=== PATIENT | male | born 1970 | race Caucasian/White ===

== ENCOUNTER 2016-12-25 01:29 | Emergency (ER) | payer BC, OTHER ==
[~2016-12-25] VITALS: Ht 177.8 cm; Wt 145.2 kg
[~2016-12-25 01:29] MED LIST: DLN100 PO
[2016-12-25 01:35] VITALS: TEMP 36.8; O2SAT 91; Ht 177.8 cm; Wt 145.2 kg
[2016-12-25 02:01] LABS: BASO % 0.5 %; BASO ABS # 0.03 K/uL (0-0.2); COMPLETE YES; HEMATOCRIT 44.1 % (42-52); IG% 0.6 %; LYMPH % 15.7 %; LYMPH ABS # 1.04 K/uL (1.2-3.4); MEAN CELL VOLUME 91.5 fL (80-100); MEAN CORPUSCULAR HEMOGLOBIN 30.9 pg (25-34); MEAN CORPUSCULAR HGB CONC 33.8 g/dl (32-36); MEAN PLATELET VOLUME 9.5 fL (7.4-10.4); MONO % 6.8 %; NEUT % 73.4 %; PLATELET COUNT 214 K/uL (130-400); RED BLOOD COUNT 4.82 M/uL (4.7-6.1); WHITE BLOOD COUNT 6.62 K/uL (4.8-10.8)
[2016-12-25 02:11] LABS: PROTHROMBIN TIME (PATIENT) 10.3 SECONDS (9.0-12.0)
[2016-12-25 02:19] LABS: BUN/CREATININE RATIO 13.6 (10-20); CALCIUM 7.9 mg/dl (8.5-10.1); CREATININE 0.72 mg/dl (0.60-1.40); POTASSIUM 4.1 mmol/L (3.5-5.1)
[2016-12-25 02:28] LABS: PHOSPHORUS 2.9 mg/dl (2.5-4.9); THYROID STIMULATING HORMONE 1.77 uIu/ml (0.300-4.500)
[2016-12-25 02:53] LABS: URINE APPEARANCE CLEAR (CLEAR); URINE BILIRUBIN NEG (NEG); URINE COLOR YELLOW; URINE NITRITE NEG (NEG); URINE PH 5.5 (4.5-7.5); URINE SPECIFIC GRAVITY 1.011 (1.000-1.030); UROBILINOGEN NEG (NEG)
[2016-12-25 02:54] LABS: MANUAL MICROSCOPIC REQUIRED? NO; REVIEW REQ? NO
[2016-12-25] MEDS ORDERED: PHENYTOIN SODIUM ER 100 MG CAP PO STA (03:13)
[2016-12-25] MEDS ORDERED: DLN100 PO (03:15)
[2016-12-25 03:55] VITALS: BP 134/84; PULSE 88; O2SAT 96
--- NOTE | 2016-12-25 04:13 | EMERGENCY ROOM VISIT NOTE ---
History First contact with patient: 01:33 Chief Complaint: SEIZURE Stated Complaint: SEIZURE Nursing Triage Summary: 2-3 min seizure while sleeping- girlfriend present & called EMS. History of seizures-last one was 5months ago. Dr. Metzger is neurologist. Patient takes Dilantin as prescribed. History of Present Illness The patient is a 46 year old male who presents to the Emergency Room with complaints of seizure tonight that lasted about 3 minutes that was witnessed by the girlfriend. Patient has a history of seizure disorder. He follows with Dr. Metzger. He takes Dilantin 300 2 AM and 400 daily at bedtime. He has not missed any doses per patient. Patient states he was confused after the seizure. He does not recall the events. Patient denies chest pain, dyspnea, fever, chills, illness, cold symptoms, abdominal pain, headache, numbness, tingling or any other medical complaints. He states he does not currently drive. He works at [email or web address]. Last seizure was 6 months ago. Review of Systems See HPI for pertinent positives & negatives. A total of 10 systems reviewed and were otherwise negative. Past Medical/Surgical History Medical Problems: (1) Chest pain (2) Seizure disorder (3) Tobacco abuse Surgical Problems: (1) History of ear surgery Family History Diabetes mellitus FATHER MOTHER SISTER Hypertension MOTHER Social History Smoking Status: Current Every Day Smoker Marital Status: Housing Status: lives with significant other Occupation Status: employed Current/Historical Medications Scheduled Phenytoin Sodium (Dilantin), 300 MG PO QAM Phenytoin Sodium (Dilantin), 400 MG PO QPM Phenytoin Sodium (Dilantin), 4 CAP PO BID Allergies Coded Allergies: No Known Allergies (Verified , 04/23/16) Physical Exam Vital Signs Date Time Temp Pulse Resp B/P Pulse Ox O2 Delivery O2 Flow Rate FiO2 12/25/16 03:12 67 17 124/73 95 Room Air 12/25/16 02:05 85 12/25/16 01:35 91 Room Air 12/25/16 01:35 36.8 88 16 153/79 93 Room Air 12/25/16 01:30 83 17 153/79 93 Room Air Physical Exam VITALS: Vitals are noted on the nurse's note and reviewed by myself. Vital signs stable. GENERAL: Pleasant male answering questions appropriately, in no acute distress, nondiaphoretic, well-developed well-nourished. SKIN: The skin was without rashes, erythema, edema, or bruising. There is no tenting of the skin. Capillary reflex less than 2 seconds. HEAD: Normocephalic atraumatic. EARS: External auditory canals clear, tympanic membranes pearly duke without erythema or effusion bilaterally. EYES: Pupils equal round and reactive to light and accommodation. Conjunctivae without injection, sclerae without icterus. Extraocular movements intact. NOSE: Patent, turbinates without inflammation or discharge. No sinus tenderness. MOUTH: Mucous membranes moist. Pharynx without erythema or exudate. Uvula midline. Airway patent. Tongue does not deviate. NECK: Supple without nuchal rigidity. No lymphadenopathy. No thyromegaly. Cervical spine is nontender. No JVD. HEART: Regular rate and rhythm without murmurs gallops or rubs. LUNGS: Clear to auscultation bilaterally without wheezes, rales or rhonchi. No dullness to percussion. No retractions or accessory muscle use. ABDOMEN: Positive bowel sounds x 4. Normal tympanic percussion. Soft, nontender, without masses or organomegaly. Gamino sign negative. No guarding or rebound tenderness. MUSCULOSKELETAL: No muscle atrophy, erythema, or edema noted. NEURO: Patient was alert and oriented to person place and time. Normal sensation to light and sharp touch. No focal neurological deficits. Cranial nerves II-12 grossly intact. No pronator drift. Cell exam intact. Medical Decision & Procedures Laboratory Results 12/25/16 01:55 Red Blood Count 4.82, Mean Corpuscular Volume 91.5, Mean Corpuscular Hemoglobin 30.9, Mean Corpuscular Hemoglobin Concent 33.8, Mean Platelet Volume 9.5, Neutrophils (%) (Auto) 73.4, Lymphocytes (%) (Auto) 15.7, Monocytes (%) (Auto) 6.8, Eosinophils (%) (Auto) 3.0, Basophils (%) (Auto) 0.5, Neutrophils # (Auto) 4.86, Lymphocytes # (Auto) 1.04, Monocytes # (Auto) 0.45, Eosinophils # (Auto) 0.20, Basophils # (Auto) 0.03 12/25/16 01:55 Test 12/25/16 01:55 12/25/16 02:38 White Blood Count 6.62 K/uL (4.8-10.8) Red Blood Count 4.82 M/uL (4.7-6.1) Hemoglobin 14.9 g/dL (14.0-18.0) Hematocrit 44.1 % (42-52) Mean Corpuscular Volume 91.5 fL (80-100) Mean Corpuscular Hemoglobin 30.9 pg (25-34) Mean Corpuscular Hemoglobin Concent 33.8 g/dl (32-36) Platelet Count 214 K/uL (130-400) Mean Platelet Volume 9.5 fL (7.4-10.4) Neutrophils (%) (Auto) 73.4 % Lymphocytes (%) (Auto) 15.7 % Monocytes (%) (Auto) 6.8 % Eosinophils (%) (Auto) 3.0 % Basophils (%) (Auto) 0.5 % Neutrophils # (Auto) 4.86 K/uL (1.4-6.5) Lymphocytes # (Auto) 1.04 K/uL (1.2-3.4) Monocytes # (Auto) 0.45 K/uL (0.11-0.59) Eosinophils # (Auto) 0.20 K/uL (0-0.5) Basophils # (Auto) 0.03 K/uL (0-0.2) RDW Standard Deviation 47.4 fL (36.4-46.3) RDW Coefficient of Variation 14.1 % (11.5-14.5) Immature Granulocyte % (Auto) 0.6 % Immature Granulocyte # (Auto) 0.04 K/uL (0.00-0.02) Prothrombin Time 10.3 SECONDS (9.0-12.0) Prothromb Time International Ratio 1.0 (0.9-1.1) Activated Partial Thromboplast Time 27.0 SECONDS (21.0-31.0) Partial Thromboplastin Ratio 1.0 Anion Gap 7.0 mmol/L (3-11) Est Creatinine Clear Calc Drug Dose 186.7 ml/min Estimated GFR () 130.6 Estimated GFR (Non- 112.7 BUN/Creatinine Ratio 13.6 (10-20) Calcium Level 7.9 mg/dl (8.5-10.1) Phosphorus Level 2.9 mg/dl (2.5-4.9) Magnesium Level 2.0 mg/dl (1.8-2.4) Thyroid Stimulating Hormone (TSH) 1.770 uIu/ml (0.300-4.500) Phenytoin (Dilantin) Level 1.8 mcg/mL (10-20) Urine Color YELLOW Urine Appearance CLEAR (CLEAR) Urine pH 5.5 (4.5-7.5) Urine Specific Bradley 1.011 (1.000-1.030) Urine Protein NEG (NEG) Urine Glucose (UA) NEG (NEG) Urine Ketones NEG (NEG) Urine Occult Blood NEG (NEG) Urine Nitrite NEG (NEG) Urine Bilirubin NEG (NEG) Urine Urobilinogen NEG (NEG) Urine Leukocyte Esterase NEG (NEG) Medications Administered Medications (Trade) Dose Ordered Sig/Diana Route Start Time Stop Time Status Last Admin Dose Admin Phenytoin Sodium (Dilantin Er Cap) 100 mg NOW STAT PO 12/25/16 03:13 12/25/16 03:14 DC 12/25/16 03:18 100 MG ED Course Prior records/ancillary studies reviewed. Patient placed in seizure precautions immediately upon arrival. Nursing notes reviewed. Additional history obtained from family The patient's history was concerning for a possible seizure. Differential diagnosis: Etiologies such as infection, hypoglycemia, electrolyte abnormalities, cardiac sources, intracerebral event, trauma, toxicologic, neurologic, as well as others were entertained. Physical examination: As above. No signs of trauma. ER treatment provided: Dilantin On reassessment the patient felt better. Diagnostics interpretation by me: ECG: Normal sinus, normal intervals, no acute ST-T wave changes. Impression normal sinus rhythm interpreted by myself The labs revealed subtherapeutic Dilantin level Consultation: A consultation was placed with the neurologist, Dr. Dobbins. The case was discussed and diagnostics were reviewed. She recommends increasing the Dilantin to 400 mg twice a day and following up with Dr. eMtzger this week. The patient has a history of seizures and experienced another episode. No concerning physical findings or historical points were noted. Advanced diagnostics were deemed unnecessary. By the evaluation outlined above emergent etiologies such as infection, hypoglycemia, electrolyte abnormalities, cardiac sources, intracerebral event, toxicologic, neurologic,as well as others were deemed relatively unlikely. Patient is advised not to drive and states he does not drive. He was advised follow-up with his neurologist this week or here in the ER sooner for seizure, fevers, chest pain, worsening signs or symptoms or as needed. Patient was neurovascularly and neurologically intact. He is well- appearing. The patient was counseled not to drive until cleared in follow-up and seizure precautions given. I gave my usual and customary discussion regarding these issues. The pt informed about the findings as listed above. All questions were answered and pleased with the treatment. Return instructions were outlined and the patient was discharged in stable condition. Outpatient prescription management: Dilantin Referral: The patient was referred back to their neurology for follow-up in 2 to 3 days for a recheck of the current condition. Medical Decision As above Impression Primary Impression: Seizure Departure Information Dispostion Home / Self-Care Condition GOOD Prescriptions Phenytoin Sodium (Dilantin) 100 Mg Cap 4 CAP PO BID for 30 Days, #240 CAP 0 Refills Prov: Anna Wiggins .LUCIEN 12/25/16 Forms HOME CARE DOCUMENTATION FORM, IMPORTANT VISIT INFORMATION Patient Instructions Seizures - [facility], My [facility] Additional Instructions Increase your Dilantin to 400 mg twice a day. Do not drive until cleared by your neurologist. Follow-up with your neurologist in 2-3 days, call for an appointment. Return to ER sooner for seizures, chest pain, fever, worsening signs or symptoms or as needed.
== END 2016-12-25 03:55 | disposition home or self-care (01) ==
LOC: EDBD 01:29 → C.EDB 01:31
DX: G40.909 Epilepsy, unspecified, not intractable, without status epilepticus (principal); Z98.890 Other specified postprocedural states; F17.200 Nicotine dependence, unspecified, uncomplicated; Z83.3 Family history of diabetes mellitus; Z82.49 Family history of ischemic heart disease and other diseases of the circulatory system

== ENCOUNTER 2017-05-19 00:12 | Emergency (ER) | payer BC ==
[~2017-05-19] VITALS: Ht 177.8 cm; Wt 148.0 kg
[2017-05-19 00:23] VITALS: TEMP 36.9; Ht 177.8 cm; Wt 148.0 kg
[2017-05-19] MEDS ORDERED: SODIUM CHLORIDE 0.9% 1000ML 1,000 ML IV STA (00:49)
[2017-05-19 01:33] LABS: BASO % 0.4 %; BASO ABS # 0.04 K/uL (0-0.2); COMPLETE YES; EOS % 1.9 %; HEMATOCRIT 45.6 % (42-52); IG% 0.3 %; LYMPH % 13.6 %; LYMPH ABS # 1.32 K/uL (1.2-3.4); MEAN CELL VOLUME 93.3 fL (80-100); MEAN CORPUSCULAR HEMOGLOBIN 30.3 pg (25-34); MEAN CORPUSCULAR HGB CONC 32.5 g/dl (32-36); MEAN PLATELET VOLUME 9.5 fL (7.4-10.4); MONO % 7.5 %; NEUT % 76.3 %; PLATELET COUNT 230 K/uL (130-400); RED BLOOD COUNT 4.89 M/uL (4.7-6.1); WHITE BLOOD COUNT 9.68 K/uL (4.8-10.8)
[2017-05-19 02:03] LABS: ALT/SGPT 26 U/L (12-78); AST/SGOT 22 U/L (15-37); BLOOD UREA NITROGEN 18 mg/dl (7-18); BUN/CREATININE RATIO 19.3 (10-20); CALCIUM 8.4 mg/dl (8.5-10.1); CARBON DIOXIDE 29 mmol/L (21-32); CHLORIDE 108 mmol/L (98-107); CREATININE 0.93 mg/dl (0.60-1.40); GLUCOSE 124 mg/dl (70-99); MAGNESIUM 2.1 mg/dl (1.8-2.4); POTASSIUM 4.2 mmol/L (3.5-5.1); SODIUM 140 mmol/L (136-145)
[2017-05-19 02:05] LABS: ALKALINE PHOSPHATASE 173 U/L (45-117)
[2017-05-19 02:13] LABS: ACETAMINOPHEN < 2 ug/ml (10-30)
[2017-05-19] MEDS ORDERED: PHENYTOIN SODIUM ER 100 MG CAP PO STA (03:21)
[2017-05-19] MEDS ORDERED: PHENYTOIN 50 MG CHEW PO STA ×2 (03:29→03:38)
--- NOTE | 2017-05-19 03:38 | EMERGENCY ROOM VISIT NOTE ---
History Report prepared by Linh: Sheron Estevez Under the Supervision of: Dr. Patsy Correa M.D. First contact with patient: 00:25 Chief Complaint: SEIZURE Stated Complaint: SEIZURE Nursing Triage Summary: hx of seizures. went to bed lidia ya' found patient in bed having seizure, lasted approx 2 min. patient is alert and oriented x 4 upon arrival. only complaint is pressure behind his eyes History of Present Illness The patient is a 46 year old male who presents to the Emergency Room with complaints of an episode of seizure around 2300 today. The patient has a 10 year history of seizures for which he is on Dilantin. It has been 1 year since his last seizure. The patient recalls going to bed around 2200 today. The next thing he remembers is being wheeled out of the house by EMS. The seizure was witness by his partner. She saw him in bed shaking and punching the wall. He was foaming at the mouth. The episode lasted for a few minutes. The patient has a postictal phase for 10-15 minutes when he was unresponsive. His daughter states that the description of the seizure is consistent with his prior seizures. He currently feels like he did after his prior seizures. He did have a pressure in his head after he woke up which has resolved. He denies any vomiting, loss of bowel or bladder control. He denies any vision changes or stroke symptoms recently. He notes that he took metronidazole today for the first time for a potential STD. He took the Dilantin 1 hour before he took the metronidazole. He denies any recent head injury or falls. 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 He has had no other medical issues or surgeries. He has smoked 1 ppd since the age of 13. Source of History: patient, family Onset: 2299 today Position: other (global) Quality: other (seizure) Timing: other (episodic) Associated Symptoms: No headache, No vomiting Note: Pt denies loss of bowel or bladder control, vision changes, stroke symptoms. Review of Systems See HPI for pertinent positives & negatives. A total of 10 systems reviewed and were otherwise negative. Past Medical & Surgical Medical Problems: (1) Chest pain (2) Seizure disorder (3) Tobacco abuse Surgical Problems: (1) History of ear surgery Family History Diabetes mellitus FATHER MOTHER SISTER Hypertension MOTHER Social History Smoking Status: Current Every Day Smoker Marital Status: Housing Status: lives with significant other Occupation Status: employed Current/Historical Medications Scheduled Phenytoin (Dilantin Chewable), 400 MG PO Q2H Phenytoin Sodium (Dilantin), 300 MG PO QAM Phenytoin Sodium (Dilantin), 400 MG PO QPM Allergies Coded Allergies: No Known Allergies (Verified , 05/19/17) Physical Exam Vital Signs Date Time Temp Pulse Resp B/P (MAP) Pulse Ox O2 Delivery O2 Flow Rate FiO2 05/19/17 03:52 71 18 124/81 98 05/19/17 02:12 74 17 96 Room Air 05/19/17 01:42 84 20 93 Room Air 05/19/17 01:12 80 22 92 Room Air 05/19/17 00:25 93 05/19/17 00:23 36.9 97 18 110/73 94 Room Air 05/19/17 00:15 110/73 Physical Exam Vital signs reviewed. General: Well-appearing male, in no significant distress. HEENT: No scleral icterus, PERRLA, neck supple. Atraumatic. No meningeal signs. Cardiovascular: Regular rate and rhythm, no extra sounds. Pulmonary: Clear to auscultation bilaterally, normal work of breathing. Abdomen: Morbidly obese. Soft, nontender, nondistended, positive bowel sounds. Musculoskeletal: Atraumatic, no peripheral edema. Neurologic: Patient awake alert and oriented x 3, full strength in all 4 extremities. Cranial nerves 2 through 12 grossly intact. Skin: Warm, dry, no rash Medical Decision & Procedures Laboratory Results 05/19/17 01:21 Red Blood Count 4.89, Mean Corpuscular Volume 93.3, Mean Corpuscular Hemoglobin 30.3, Mean Corpuscular Hemoglobin Concent 32.5, Mean Platelet Volume 9.5, Neutrophils (%) (Auto) 76.3, Lymphocytes (%) (Auto) 13.6, Monocytes (%) (Auto) 7.5, Eosinophils (%) (Auto) 1.9, Basophils (%) (Auto) 0.4, Neutrophils # (Auto) 7.38, Lymphocytes # (Auto) 1.32, Monocytes # (Auto) 0.73, Eosinophils # (Auto) 0.18, Basophils # (Auto) 0.04 05/19/17 01:21 Test 05/19/17 01:21 White Blood Count 9.68 K/uL (4.8-10.8) Red Blood Count 4.89 M/uL (4.7-6.1) Hemoglobin 14.8 g/dL (14.0-18.0) Hematocrit 45.6 % (42-52) Mean Corpuscular Volume 93.3 fL (80-100) Mean Corpuscular Hemoglobin 30.3 pg (25-34) Mean Corpuscular Hemoglobin Concent 32.5 g/dl (32-36) Platelet Count 230 K/uL (130-400) Mean Platelet Volume 9.5 fL (7.4-10.4) Neutrophils (%) (Auto) 76.3 % Lymphocytes (%) (Auto) 13.6 % Monocytes (%) (Auto) 7.5 % Eosinophils (%) (Auto) 1.9 % Basophils (%) (Auto) 0.4 % Neutrophils # (Auto) 7.38 K/uL (1.4-6.5) Lymphocytes # (Auto) 1.32 K/uL (1.2-3.4) Monocytes # (Auto) 0.73 K/uL (0.11-0.59) Eosinophils # (Auto) 0.18 K/uL (0-0.5) Basophils # (Auto) 0.04 K/uL (0-0.2) RDW Standard Deviation 49.2 fL (36.4-46.3) RDW Coefficient of Variation 14.4 % (11.5-14.5) Immature Granulocyte % (Auto) 0.3 % Immature Granulocyte # (Auto) 0.03 K/uL (0.00-0.02) Anion Gap 3.0 mmol/L (3-11) Est Creatinine Clear Calc Drug Dose 146.1 ml/min Estimated GFR () 114.5 Estimated GFR (Non- 98.8 BUN/Creatinine Ratio 19.3 (10-20) Calcium Level 8.4 mg/dl (8.5-10.1) Magnesium Level 2.1 mg/dl (1.8-2.4) Total Bilirubin 0.2 mg/dl (0.2-1) Direct Bilirubin < 0.1 mg/dl (0-0.2) Aspartate Amino Transf (AST/SGOT) 22 U/L (15-37) Alanine Aminotransferase (ALT/SGPT) 26 U/L (12-78) Alkaline Phosphatase 173 U/L (45-117) Total Protein 6.7 gm/dl (6.4-8.2) Albumin 3.1 gm/dl (3.4-5.0) Salicylates Level 2.2 mg/dl (2.8-20) Acetaminophen Level < 2 ug/ml (10-30) Phenytoin (Dilantin) Level 2.7 mcg/mL (10-20) Ethyl Alcohol mg/dL < 3.0 mg/dl (0-3) Laboratory results per my review. Medications Administered Medications (Trade) Dose Ordered Sig/Diana Route Start Time Stop Time Status Last Admin Dose Admin Sodium Chloride 1,000 ml @ 999 mls/hr Q1H1M STAT IV 05/19/17 00:49 05/19/17 01:49 DC 05/19/17 00:49 999 MLS/HR Phenytoin (Dilantin Chew) 400 mg NOW STAT PO 05/19/17 03:29 05/19/17 03:30 DC 05/19/17 03:29 400 MG Phenytoin (Dilantin Chew) 800 mg Q2HWA STAT PO 05/19/17 03:38 05/19/17 03:41 DC 05/19/17 03:38 800 MG ECG Indication: syncope Rate (beats per minute): 92 Rhythm: normal sinus Findings: no acute ischemic change, no ectopy ED Course 0025: The patient was evaluated by the student at this time. We discussed findings, differentials, and treatment plan. 0049: NSS 1000 ml @ 999 mls/hr IV. 0100: Past medical records reviewed. The patient was evaluated in room B2. A complete history and physical examination was performed. 0315: Upon reevaluation, the patient appeared to have improvement of his symptoms. I discussed findings with him. He verbalized agreement of the treatment plan. He was discharged home. 0329: Dilantin Chew 400 mg PO. Medical Decision Differential diagnosis: Etiologies such as infection, hypoglycemia, electrolyte abnormalities, cardiac sources, intracerebral event, trauma, toxicologic, neurologic, as well as others were entertained. This patient was evaluated and appears to be in no significant distress. IV access was obtained and laboratory work was drawn. Patient was placed on the classroom monitor with seizure precautions maintained. IV hydration was initiated. Patient's Dilantin level is noted to be subtherapeutic. He admits to patchy compliance with his medications. The patient was given an oral load of Dilantin. He will be required to take 400 mg every 2 hours until 4 PM. Patient was given 8-50 mg tablets with instructions as well as a prescription for the remaining immediate release chewable tablets. Patient will then continue his Dilantin as prescribed and follow-up with his neurologist. Patient was discharged with care of his girlfriend. He will return to the ER for worsening of symptoms or any medical concerns. Medication Reconcilliation Current Medication List: was personally reviewed by me Blood Pressure Screening Patient's blood pressure: Normal blood pressure Blood pressure disposition: Did not require urgent referral Impression Primary Impression: Seizure disorder Scribe Attestation The scribe's documentation has been prepared under my direction and personally reviewed by me in its entirety. I confirm that the note above accurately reflects all work, treatment, procedures, and medical decision making performed by me. Departure Information Dispostion Home / Self-Care Prescriptions Phenytoin (DILANTIN CHEWABLE) 50 Mg Chw 400 MG PO Q2H, #32 CHW take 400 mg at 10 am, 12 pm, 2 pm and 4 pm Prov: Patsy Correa M.D. 05/19/17 Referrals Lauren Metzger M.D. (PCP) Tom Paez III, M.D. Forms HOME CARE DOCUMENTATION FORM, IMPORTANT VISIT INFORMATION Patient Instructions My [facility] Additional Instructions Diagnosis: Seizure disorder Dilantin 400 mg every 2 hours x 6 more doses (6 am, 8am, 10 am, 12pm, 2 pm, 4 pm ) and then take your Dilantin as prescribed. Drink plenty of clear fluids. Follow up with your neurologist this week for reevaluation. Return to the ED for worsening of symptoms or any medical concerns.
[2017-05-19] MEDS ORDERED: PHEN50CH PO (03:43)
[2017-05-19 03:52] VITALS: BP 124/81; PULSE 71; O2SAT 98
== END 2017-05-19 03:53 | disposition home or self-care (01) ==
LOC: EDBD 00:12 → C.EDB 00:14
DX: G40.909 Epilepsy, unspecified, not intractable, without status epilepticus (principal); Z83.3 Family history of diabetes mellitus; Z82.49 Family history of ischemic heart disease and other diseases of the circulatory system; F17.200 Nicotine dependence, unspecified, uncomplicated

== ENCOUNTER 2017-08-02 08:33 | Emergency (ER) | payer BC ==
[~2017-08-02] VITALS: Ht 177.8 cm; Wt 157.0 kg
[2017-08-02 08:43] VITALS: TEMP 36.5; Ht 177.8 cm; Wt 157.0 kg
[2017-08-02] MEDS ORDERED: PHENYTOIN SODIUM ER 100 MG CAP PO STA (08:49)
--- NOTE | 2017-08-02 08:56 | EMERGENCY ROOM VISIT NOTE ---
History Report prepared by Linh: Gwendolyn Juarez Under the Supervision of: Dr. Facundo Maharaj D.O. First contact with patient: 08:39 Stated Complaint: SEIZURE History of Present Illness The patient is a 46 year old male who presents to the Emergency Room with complaints of a sudden grand mal seizure that occurred just prior to arrival. The patient reports that he has a history of seizures and denies any other medical problems. He states that his last seizure was four months ago, but states that before that his last seizure was several years ago. The patient states that he last saw his Neurologist four months ago. He denies any drug use , but reports drinking alcohol once every few months. The patient states that he takes 300 mg of extended release Dilantin between 0600 and 0630 each morning and 400 mg of extended release Dilantin in the evening. He states that he did not take his medication this morning due to his seizure occurring. The patient states that he is compliant with his medications otherwise. He states that his last change in dosage was over two years ago. The patient denies any recent fall or head trauma. He states that since his seizure he has been feeling fatigued and has developed a headache. The patient states that these are typical for him after a seizure. Source of History: patient Onset: prior to arrival Position: other (global) Quality: other (grand mal seizure) Timing: other (sudden) Associated Symptoms: + headache, + fatigue Review of Systems See HPI for pertinent positives & negatives. A total of 10 systems reviewed and were otherwise negative. Past Medical & Surgical Medical Problems: (1) Chest pain (2) Seizure disorder (3) Tobacco abuse Surgical Problems: (1) History of ear surgery Family History Diabetes mellitus FATHER MOTHER SISTER Hypertension MOTHER Social History Smoking Status: Current Every Day Smoker Marital Status: Housing Status: lives with significant other Occupation Status: employed Current/Historical Medications Scheduled Naproxen (Aleve), 220 MG PO BID Phenytoin Sodium (Dilantin), 300 MG PO QAM Phenytoin Sodium (Dilantin), 400 MG PO QPM Allergies Coded Allergies: No Known Allergies (Verified , 08/02/17) Physical Exam Vital Signs Date Time Temp Pulse Resp B/P (MAP) Pulse Ox O2 Delivery O2 Flow Rate FiO2 08/02/17 11:21 74 22 145/74 95 08/02/17 10:18 66 18 133/69 96 Room Air 08/02/17 09:00 93 Room Air 08/02/17 08:43 36.5 73 18 172/96 93 Room Air 08/02/17 08:43 93 Room Air 08/02/17 08:40 70 Physical Exam GENERAL: Patient is awake, alert, and in no acute distress. Patient is resting comfortably and showing no signs of anxiety EYES: The conjunctivae are clear. The pupils are round and reactive. EARS, NOSE, MOUTH AND THROAT: The nose is without any evidence of any deformity. Mucous membranes are moist tongue is midline NECK: The neck is nontender and supple. RESPIRATORY: Normal respiratory effort is noted there is no evidence of wheezing rhonchi or rales CARDIOVASCULAR: Regular rate and rhythm noted there no murmurs rubs or gallops normal S1 normal S2 GASTROINTESTINAL: The abdomen is soft. Bowel sounds are present in all quadrants. Abdomen is nontender MUSCULOSKELETAL/EXTREMITIES: There is no evidence of gross deformity full range of motion is noted in the hips and shoulders SKIN: There is no obvious evidence of any rash. There are no petechiae, pallor or cyanosis noted. NEUROLOGIC: Patient is awake alert and oriented x3. Medical Decision & Procedures Laboratory Results 08/02/17 09:04 Red Blood Count 4.59, Mean Corpuscular Volume 95.9, Mean Corpuscular Hemoglobin 31.8, Mean Corpuscular Hemoglobin Concent 33.2, Mean Platelet Volume 9.6, Neutrophils (%) (Auto) 70.4, Lymphocytes (%) (Auto) 20.4, Monocytes (%) (Auto) 8.3, Eosinophils (%) (Auto) 0.0, Basophils (%) (Auto) 0.7, Neutrophils # (Auto) 4.15, Lymphocytes # (Auto) 1.20, Monocytes # (Auto) 0.49, Eosinophils # (Auto) 0.00, Basophils # (Auto) 0.04 08/02/17 09:04 Test 08/02/17 09:04 White Blood Count 5.89 K/uL (4.8-10.8) Red Blood Count 4.59 M/uL (4.7-6.1) Hemoglobin 14.6 g/dL (14.0-18.0) Hematocrit 44.0 % (42-52) Mean Corpuscular Volume 95.9 fL (80-100) Mean Corpuscular Hemoglobin 31.8 pg (25-34) Mean Corpuscular Hemoglobin Concent 33.2 g/dl (32-36) Platelet Count 196 K/uL (130-400) Mean Platelet Volume 9.6 fL (7.4-10.4) Neutrophils (%) (Auto) 70.4 % Lymphocytes (%) (Auto) 20.4 % Monocytes (%) (Auto) 8.3 % Eosinophils (%) (Auto) 0.0 % Basophils (%) (Auto) 0.7 % Neutrophils # (Auto) 4.15 K/uL (1.4-6.5) Lymphocytes # (Auto) 1.20 K/uL (1.2-3.4) Monocytes # (Auto) 0.49 K/uL (0.11-0.59) Eosinophils # (Auto) 0.00 K/uL (0-0.5) Basophils # (Auto) 0.04 K/uL (0-0.2) RDW Standard Deviation 50.4 fL (36.4-46.3) RDW Coefficient of Variation 14.4 % (11.5-14.5) Immature Granulocyte % (Auto) 0.2 % Immature Granulocyte # (Auto) 0.01 K/uL (0.00-0.02) Prothrombin Time 10.3 SECONDS (9.0-12.0) Prothromb Time International Ratio 1.0 (0.9-1.1) Activated Partial Thromboplast Time 28.6 SECONDS (21.0-31.0) Partial Thromboplastin Ratio 1.1 Anion Gap 4.0 mmol/L (3-11) Est Creatinine Clear Calc Drug Dose 203.8 ml/min Estimated GFR () 132.9 Estimated GFR (Non- 114.7 BUN/Creatinine Ratio 21.5 (10-20) Calcium Level 8.3 mg/dl (8.5-10.1) Phosphorus Level 3.6 mg/dl (2.5-4.9) Magnesium Level 2.0 mg/dl (1.8-2.4) Thyroid Stimulating Hormone (TSH) 2.740 uIu/ml (0.300-4.500) Phenytoin (Dilantin) Level 4.6 mcg/mL (10-20) Laboratory results per my review. Medications Administered Medications (Trade) Dose Ordered Sig/Diana Route Start Time Stop Time Status Last Admin Dose Admin Phenytoin Sodium (Dilantin Er Cap) 500 mg NOW STAT PO 08/02/17 08:49 08/02/17 08:50 DC 08/02/17 08:58 500 MG ECG Indication: other (seizure) Rate (beats per minute): 67 Rhythm: normal sinus Findings: no acute ischemic change, no ectopy Comparison ECG Date: 05/19/17 Change: no significant change ED Course 0844: The patient was evaluated in room A3. A complete history and physical examination were performed. 0849: Ordered Dilantin Er Cap 500 mg PO. 1038: I reevaluated the patient and he is resting comfortably. I discussed the exam findings with him and I discussed the treatment plan. He verbalized complete understanding and agreement. He is ready for discharge. Medical Decision Differential diagnosis: Etiologies such as infection, hypoglycemia, electrolyte abnormalities, cardiac sources, intracerebral event, trauma, toxicologic, neurologic, as well as others were entertained. Nursing notes reviewed. Additional history is obtained from the prehospital personnel. Additional history is obtained from the patient's significant other. The patient is a 46-year-old male who has a history of seizures who presented to the emergency department after having a seizure consistent with his previous seizures. The patient was treated with Dilantin in the emergency department. His level was subtherapeutic. He was reevaluated multiple times. I discussed the patient's laboratory results with him. He was encouraged to continue all medications as prescribed. He was also encouraged to follow-up with his family doctor soon as possible. He was also encouraged return the emergency Department immediately if symptoms change worsen or the need arises. Medication Reconcilliation Current Medication List: was personally reviewed by me Impression Primary Impression: Seizure Additional Impression: Subtherapeutic serum dilantin level Scribe Attestation The scribe's documentation has been prepared under my direction and personally reviewed by me in its entirety. I confirm that the note above accurately reflects all work, treatment, procedures, and medical decision making performed by me. Departure Information Dispostion Home / Self-Care Referrals Lauren Metzger M.D. (PCP) Forms HOME CARE DOCUMENTATION FORM, IMPORTANT VISIT INFORMATION, Work Instructions Patient Instructions ED Seizure Recurrent, My [facility] Additional Instructions Continue all medications as prescribed. Follow-up with your neurologist as soon as possible. Problem Qualifiers
[2017-08-02 09:00] VITALS: O2SAT 93
[2017-08-02] MEDS ORDERED: NAPR1TAB9 PO (09:15)
[2017-08-02 09:22] LABS: BASO % 0.7 %; BASO ABS # 0.04 K/uL (0-0.2); COMPLETE YES; IG% 0.2 %; LYMPH % 20.4 %; MEAN CELL VOLUME 95.9 fL (80-100); MEAN CORPUSCULAR HEMOGLOBIN 31.8 pg (25-34); MEAN CORPUSCULAR HGB CONC 33.2 g/dl (32-36); MEAN PLATELET VOLUME 9.6 fL (7.4-10.4); MONO % 8.3 %; NEUT % 70.4 %; PLATELET COUNT 196 K/uL (130-400); RED BLOOD COUNT 4.59 M/uL (4.7-6.1); WHITE BLOOD COUNT 5.89 K/uL (4.8-10.8)
[2017-08-02 09:31] LABS: PARTIAL THROMBOPLASTIN RATIO 1.1; PROTHROMBIN TIME (PATIENT) 10.3 SECONDS (9.0-12.0)
[2017-08-02 09:37] LABS: BUN/CREATININE RATIO 21.5 (10-20); CALCIUM 8.3 mg/dl (8.5-10.1); CREATININE 0.69 mg/dl (0.60-1.40); POTASSIUM 4.4 mmol/L (3.5-5.1)
[2017-08-02 09:48] LABS: PHOSPHORUS 3.6 mg/dl (2.5-4.9); THYROID STIMULATING HORMONE 2.74 uIu/ml (0.300-4.500)
[2017-08-02 11:21] VITALS: BP 145/74; PULSE 74; O2SAT 95
== END 2017-08-02 11:21 | disposition home or self-care (01) ==
LOC: EDBD 08:33 → C.EDA 08:34
DX: G40.409 Other generalized epilepsy and epileptic syndromes, not intractable, without status epilepticus (principal); T42.0X6A Underdosing of hydantoin derivatives, initial encounter; X58.XXXA Exposure to other specified factors, initial encounter; Z79.899 Other long term (current) drug therapy

== ENCOUNTER 2017-08-21 09:30 | Emergency (ER) | payer BC ==
[~2017-08-21] VITALS: Ht 175.3 cm; Wt 163.9 kg
[~2017-08-21 09:30] MED LIST changes: +NAPR1TAB9 PO
[2017-08-21 09:34] VITALS: TEMP 36.7; Ht 175.3 cm; Wt 163.9 kg
[2017-08-21] MEDS ORDERED: DiphenhydrAMINE HCL 50 MG/ML VIAL IV STA (09:42)
[2017-08-21] MEDS ORDERED: DEXAMETHASONE **PF** INJ 10 MG/ML VIAL IV ONE (09:45)
--- NOTE | 2017-08-21 09:45 | EMERGENCY ROOM VISIT NOTE ---
History Report prepared by Linh: Patricia Brennan Under the Supervision of: Dr. Sebastian Hampton M.D. First contact with patient: 09:38 Chief Complaint: RASH Stated Complaint: WELTS ON BACK/DOWN LEGS History of Present Illness The patient is a 46 year old male who presents to the Emergency Room with complaints of a worsening rash beginning 2 days ago. The patient states that his rash is on his back and the top of his head and states that it is itchy. The patient denies tongue and lip swelling and tick bites. The patient also denies fevers, shortness of breath, and genitourinary symptoms. He denies any new medications. Source of History: patient Onset: 2 days ago Position: head (top of head), back Quality: other (rash) Timing: worsening Associated Symptoms: No fevers, No SOB Note: also denies: tongue swelling, lip swelling, and genitourinary symptoms Review of Systems See HPI for pertinent positives & negatives. A total of 10 systems reviewed and were otherwise negative. Past Medical & Surgical Medical Problems: (1) Chest pain (2) Seizure disorder (3) Tobacco abuse Surgical Problems: (1) History of ear surgery Family History Diabetes mellitus FATHER MOTHER SISTER Hypertension MOTHER Social History Smoking Status: Current Every Day Smoker Marital Status: Housing Status: lives with significant other Occupation Status: employed Current/Historical Medications Scheduled Methylprednisolone (Medrol Dosepak), 1 PKT PO UD Naproxen (Aleve), 220 MG PO BID Phenytoin Sodium (Dilantin), 300 MG PO QAM Phenytoin Sodium (Dilantin), 400 MG PO QPM Allergies Coded Allergies: No Known Allergies (Verified , 08/21/17) Physical Exam Vital Signs Date Time Temp Pulse Resp B/P (MAP) Pulse Ox O2 Delivery O2 Flow Rate FiO2 08/21/17 10:50 64 18 136/72 98 08/21/17 09:34 36.7 75 20 156/86 93 Room Air Physical Exam GENERAL: Patient is uncomfortable appearing and in mild distress. HEENT: No acute trauma, normocephalic atraumatic, mucous membranes moist, no nasal congestion, no scleral icterus. NECK: No stridor, no adenopathy, no meningismus, trachea is midline. LUNGS: No dyspnea. Clear to auscultation and equal bilaterally. No wheeze, no rhonchi. HEART: Regular rate and rhythm. No murmurs, rubs, gallops appreciated. ABDOMEN: Soft, nontender, bowel sounds positive, no masses appreciated, no peritonitis. BACK: No midline tenderness, no CVA tenderness EXTREMITIES: Normal motion all extremities, no cyanosis, no edema. NEUROLOGIC: Alert and oriented, no acute motor or sensory deficits, no focal weakness, cranial nerves grossly intact. SKIN: No jaundice, no diaphoresis. Diffuse urticarial hives and welts over back , chest, abdomen, and head. No mucous membrane involvement. Medical Decision & Procedures Laboratory Results 08/21/17 09:50 Red Blood Count 4.58, Mean Corpuscular Volume 96.5, Mean Corpuscular Hemoglobin 32.1, Mean Corpuscular Hemoglobin Concent 33.3, Mean Platelet Volume 9.4, Neutrophils (%) (Auto) 78.7, Lymphocytes (%) (Auto) 16.0, Monocytes (%) (Auto) 4.9, Eosinophils (%) (Auto) 0.0, Basophils (%) (Auto) 0.1, Neutrophils # (Auto) 5.41, Lymphocytes # (Auto) 1.10, Monocytes # (Auto) 0.34, Eosinophils # (Auto) 0.00, Basophils # (Auto) 0.01 08/21/17 09:50 Test 08/21/17 09:50 White Blood Count 6.88 K/uL (4.8-10.8) Red Blood Count 4.58 M/uL (4.7-6.1) Hemoglobin 14.7 g/dL (14.0-18.0) Hematocrit 44.2 % (42-52) Mean Corpuscular Volume 96.5 fL (80-100) Mean Corpuscular Hemoglobin 32.1 pg (25-34) Mean Corpuscular Hemoglobin Concent 33.3 g/dl (32-36) Platelet Count 209 K/uL (130-400) Mean Platelet Volume 9.4 fL (7.4-10.4) Neutrophils (%) (Auto) 78.7 % Lymphocytes (%) (Auto) 16.0 % Monocytes (%) (Auto) 4.9 % Eosinophils (%) (Auto) 0.0 % Basophils (%) (Auto) 0.1 % Neutrophils # (Auto) 5.41 K/uL (1.4-6.5) Lymphocytes # (Auto) 1.10 K/uL (1.2-3.4) Monocytes # (Auto) 0.34 K/uL (0.11-0.59) Eosinophils # (Auto) 0.00 K/uL (0-0.5) Basophils # (Auto) 0.01 K/uL (0-0.2) RDW Standard Deviation 48.3 fL (36.4-46.3) RDW Coefficient of Variation 13.7 % (11.5-14.5) Immature Granulocyte % (Auto) 0.3 % Immature Granulocyte # (Auto) 0.02 K/uL (0.00-0.02) Anion Gap 4.0 mmol/L (3-11) Est Creatinine Clear Calc Drug Dose 206.5 ml/min Estimated GFR () 132.9 Estimated GFR (Non- 114.7 BUN/Creatinine Ratio 19.2 (10-20) Calcium Level 8.0 mg/dl (8.5-10.1) Total Bilirubin 0.3 mg/dl (0.2-1) Direct Bilirubin < 0.1 mg/dl (0-0.2) Aspartate Amino Transf (AST/SGOT) 25 U/L (15-37) Alanine Aminotransferase (ALT/SGPT) 25 U/L (12-78) Alkaline Phosphatase 188 U/L (45-117) Total Protein 6.9 gm/dl (6.4-8.2) Albumin 3.1 gm/dl (3.4-5.0) Phenytoin (Dilantin) Level 3.2 mcg/mL (10-20) Laboratory results as reviewed by me. Medications Administered Medications (Trade) Dose Ordered Sig/Diana Route Start Time Stop Time Status Last Admin Dose Admin Diphenhydramine HCl (Benadryl Inj) 50 mg NOW STAT IV 08/21/17 09:42 08/21/17 09:43 DC 08/21/17 09:54 50 MG Dexamethasone Sodium Phosphate (Dexamethasone Inj Pf) 10 mg NOW ONCE IV 08/21/17 09:45 08/21/17 09:46 DC 08/21/17 09:54 10 MG ED Course 0940: The patient was evaluated in room A9B. A complete history and physical exam was performed. 42: Ordered Benadryl Inj 50 mg IV. 0945: Ordered Dexamethasone Sodium Phosphate 10 mg IV. 0950: I noted to the patient that his Dilantin level is low and that he needs to see his PCP about it. He admits that he did not take it until late this morning. 1000: Reevaluated the patient. Discussed results and discharge instructions: He verbalized understanding and agreement. The patient is ready for discharge. Medical Decision Differential: Allergic Reaction, Urticaria, Anaphylaxis, Escobar-Feliciano Syndrome, Toxic Epidermal Necrolysis, Erythema Multiforme, Cellulitis, amongst other etiologies entertained. 46 yr old male arrives with diffuse hives, mostly over posterior back, back of arms and head. These started after buying new lazy boy and I suspect there may be some irritant involved. Advised avoiding chair until airs out. Improving symptoms with above. Dilantin low but he admits didn't take until just coming in and will discuss with PCP. Will start prednisone given diffuse hives. No resp nor oropharynx involvement. Looks well and no distress. Reviewed symptoms requiring return. Advised benadryl PRN. Medication Reconcilliation Current Medication List: was personally reviewed by me Blood Pressure Screening Patient's blood pressure: Elevated blood pressure Blood pressure disposition: Elevated BP felt to be situational Impression Primary Impression: Hives Additional Impressions: Allergic reaction Dilantin level too low Scribe Attestation The scribe's documentation has been prepared under my direction and personally reviewed by me in its entirety. I confirm that the note above accurately reflects all work, treatment, procedures, and medical decision making performed by me. Departure Information Dispostion Home / Self-Care Prescriptions Methylprednisolone (MEDROL DOSEPAK) 4 Mg Prince 1 PKT PO UD for 6 Days, #1 PKT Prov: Sebastian Hampton M.D. 08/21/17 Referrals Tom Paez III, M.D. (PCP) Forms HOME CARE DOCUMENTATION FORM, IMPORTANT VISIT INFORMATION, WORK / SCHOOL INSTRUCTIONS Patient Instructions ED Urticaria, My [facility] Additional Instructions Please follow up with your primary provider to discuss your low Dilantin level and hives you are having. Problem Qualifiers
[2017-08-21 10:03] LABS: BASO % 0.1 %; BASO ABS # 0.01 K/uL (0-0.2); COMPLETE YES; HEMATOCRIT 44.2 % (42-52); IG% 0.3 %; MEAN CELL VOLUME 96.5 fL (80-100); MEAN CORPUSCULAR HEMOGLOBIN 32.1 pg (25-34); MEAN CORPUSCULAR HGB CONC 33.3 g/dl (32-36); MEAN PLATELET VOLUME 9.4 fL (7.4-10.4); MONO % 4.9 %; NEUT % 78.7 %; PLATELET COUNT 209 K/uL (130-400); RED BLOOD COUNT 4.58 M/uL (4.7-6.1); WHITE BLOOD COUNT 6.88 K/uL (4.8-10.8)
[2017-08-21 10:26] LABS: ALT/SGPT 25 U/L (12-78); BLOOD UREA NITROGEN 13 mg/dl (7-18); BUN/CREATININE RATIO 19.2 (10-20); CARBON DIOXIDE 28 mmol/L (21-32); CHLORIDE 106 mmol/L (98-107); CREATININE 0.69 mg/dl (0.60-1.40); GLUCOSE 109 mg/dl (70-99); POTASSIUM 4.1 mmol/L (3.5-5.1); SODIUM 138 mmol/L (136-145)
[2017-08-21 10:29] LABS: ALKALINE PHOSPHATASE 188 U/L (45-117); AST/SGOT 25 U/L (15-37)
[2017-08-21] MEDS ORDERED: METH4PAK PO (10:41)
[2017-08-21 10:50] VITALS: BP 136/72; PULSE 64; O2SAT 98
== END 2017-08-21 10:51 | disposition home or self-care (01) ==
LOC: C.EDB 09:32 → C.EDA 10:51
DX: L50.0 Allergic urticaria (principal); R89.2 Abnormal level of other drugs, medicaments and biological substances in specimens from other organs, systems and tissues; F17.200 Nicotine dependence, unspecified, uncomplicated; R03.0 Elevated blood-pressure reading, without diagnosis of hypertension; Z83.3 Family history of diabetes mellitus; Z82.49 Family history of ischemic heart disease and other diseases of the circulatory system

== ENCOUNTER 2018-01-11 23:07 | Emergency (ER) | payer BC ==
[~2018-01-11] VITALS: Ht 177.8 cm; Wt 180.9 kg
[2018-01-11 23:13] VITALS: TEMP 36.7; Ht 177.8 cm; Wt 180.9 kg
[2018-01-11] MEDS ORDERED: SODIUM CHLORIDE 0.9% 1000ML 1,000 ML IV ONE (23:30)
[2018-01-11 23:51] LABS: BASO % 0.5 %; BASO ABS # 0.03 K/uL (0-0.2); EOS % 0.3 %; EOS ABS # 0.02 K/uL (0-0.5); HEMATOCRIT 42.8 % (42-52); HEMOGLOBIN 14.9 g/dL (14.0-18.0); IG# 0.02 K/uL (0.00-0.02); LYMPH % 22.5 %; LYMPH ABS # 1.41 K/uL (1.2-3.4); MEAN CELL VOLUME 96.8 fL (80-100); MEAN CORPUSCULAR HEMOGLOBIN 33.7 pg (25-34); MEAN CORPUSCULAR HGB CONC 34.8 g/dl (32-36); MEAN PLATELET VOLUME 9.2 fL (7.4-10.4); MONO % 9.9 %; MONO ABS # 0.62 K/uL (0.11-0.59); NEUT % 66.5 %; NEUT ABS # 4.16 K/uL (1.4-6.5); PLATELET COUNT 205 K/uL (130-400); RED CELL DISTRIBUTION WIDTH CV 13.1 % (11.5-14.5); RED CELL DISTRIBUTION WIDTH SD 46.2 fL (36.4-46.3); WHITE BLOOD COUNT 6.26 K/uL (4.8-10.8)
[2018-01-11 23:53] VITALS: O2SAT 98
[2018-01-12 00:03] LABS: INR 0.9 (0.9-1.1); PTT PATIENT 24.8 SECONDS (21.0-31.0)
[2018-01-12 00:17] LABS: ALBUMIN 3.2 gm/dl (3.4-5.0); CALCIUM 8.1 mg/dl (8.5-10.1); CREATININE 0.8 mg/dl (0.60-1.40); PHOSPHORUS 3.8 mg/dl (2.5-4.9)
[2018-01-12 00:27] LABS: TOTAL PROTEIN 7.1 gm/dl (6.4-8.2)
[2018-01-12] MEDS ORDERED: PHENYTOIN SODIUM ER 100 MG CAP PO STA (01:00)
[2018-01-12 01:38] VITALS: BP 129/77; PULSE 70; O2SAT 98
--- NOTE | 2018-01-12 04:48 | EMERGENCY ROOM VISIT NOTE ---
History First contact with patient: 23:16 Chief Complaint: SEIZURE Stated Complaint: SEIZURE Nursing Triage Summary: Pt reports he had a 7min grand mal seizure starting at 2215 tonight. pt reports he was asleep and woke his up with seziure. No incontinence. reports pt was posticle after seizure and EMS called. EMS assessed pt on scene and pt decided to ride by private vehicle to hospital. Pt takes Dilantin for his grand mal seziures. Took Dilantin 1 hours prior to having seizure. Dosage raised on Dilantin 2.5 months ago with last seizure. Pt reports 3 seizures this year, which is unusal for him. Pt denies pain at this time or injury. Pt follow with Dr. Metzger. History of Present Illness The patient is a 47 year old male who presents to the Emergency Room with complaints of seizure episode that began about 1 hour ago. Patient has a long- standing history of seizures and follows with Dr. Metzger of neurology. He does take Dilantin on a daily basis for control of the seizures. The patient was evidently asleep in a climbing chair, when his heard him breathing funny. She describes a 7 minute grand mal type seizure that broke spontaneously. The patient is not having discomfort of his extremities or mouth. He did not defecate himself or urinary himself. The patient was assessed by EMS and arrives via personal vehicle. The patient is not having other complaints, stating that this feels like his normal seizures. He has not been ill recently and rates his current discomfort a 1/10. Review of Systems More than 10 systems were reviewed and otherwise negative with the exception of history of present illness. Past Medical/Surgical History Medical Problems: (1) Chest pain (2) Seizure disorder (3) Tobacco abuse Surgical Problems: (1) History of ear surgery Family History Diabetes mellitus FATHER MOTHER SISTER Hypertension MOTHER Social History Smoking Status: Current Every Day Smoker Marital Status: Housing Status: lives with significant other Occupation Status: employed Current/Historical Medications Scheduled Naproxen (Aleve), 220 MG PO BID Phenytoin Sodium (Dilantin), 300 MG PO QAM Phenytoin Sodium (Dilantin), 400 MG PO QPM Physical Exam Vital Signs Date Time Temp Pulse Resp B/P (MAP) Pulse Ox O2 Delivery O2 Flow Rate FiO2 01/12/18 01:38 70 18 129/77 98 Room Air 45/18 00:42 75 Room Air 01/12/18 00:05 77 01/12/18 00:00 66 17 123/96 95 Room Air 01/11/18 23:53 98 Room Air 01/11/18 23:45 79 20 149/86 95 Room Air 01/11/18 23:13 36.7 81 20 181/92 94 Room Air Physical Exam VITALS: Vitals are noted on the nurse's note and reviewed by myself. Vital signs stable. GENERAL: Well-developed, well-nourished, obese white male, who is in no acute distress and resting comfortably. Patient is cooperative with the examination. HEAD: Normocephalic atraumatic. EARS: External ear normal. External auditory canals clear, tympanic membranes pearly duke without erythema or effusion bilaterally. EYES: Pupils equal round and reactive to light and accommodation. Conjunctivae without injection, sclerae without icterus. Extraocular movements intact. NOSE: Patent, turbinates without inflammation or discharge. MOUTH: Mucous membranes moist. Tonsils are not enlarged. Pharynx without erythema, blood, or exudate. Uvula midline. Airway patent. NECK: Supple without nuchal rigidity. No lymphadenopathy. No thyromegaly. Cervical spine is nontender. HEART: Regular rate and rhythm without murmurs gallops or rubs. LUNGS: Clear to auscultation bilaterally without wheezes, rales or rhonchi. No retractions or accessory muscle use. ABDOMEN: Positive normal bowel sounds x 4. Soft, nontender, without masses or organomegaly. No guarding or rebound tenderness. MUSCULOSKELETAL: No muscle atrophy, erythema, or edema noted. Full range of motion in all extremities. No tenderness to palpation. Normal gait. Strength 5/5 throughout. NEURO: Patient was alert and oriented to person place and time. CN II through XII grossly intact. No focal neurological deficits. Deep tendon reflexes 2+ throughout. SKIN: The skin was without rashes, erythema, edema, or bruising. Capillary refill less than 2 seconds. Medical Decision & Procedures Laboratory Results 01/11/18 23:40 Red Blood Count 4.42, Mean Corpuscular Volume 96.8, Mean Corpuscular Hemoglobin 33.7, Mean Corpuscular Hemoglobin Concent 34.8, Mean Platelet Volume 9.2, Neutrophils (%) (Auto) 66.5, Lymphocytes (%) (Auto) 22.5, Monocytes (%) (Auto) 9.9, Eosinophils (%) (Auto) 0.3, Basophils (%) (Auto) 0.5, Neutrophils # (Auto) 4.16, Lymphocytes # (Auto) 1.41, Monocytes # (Auto) 0.62, Eosinophils # (Auto) 0.02, Basophils # (Auto) 0.03 01/11/18 23:40 Test 01/11/18 23:40 White Blood Count 6.26 K/uL (4.8-10.8) Red Blood Count 4.42 M/uL (4.7-6.1) Hemoglobin 14.9 g/dL (14.0-18.0) Hematocrit 42.8 % (42-52) Mean Corpuscular Volume 96.8 fL (80-100) Mean Corpuscular Hemoglobin 33.7 pg (25-34) Mean Corpuscular Hemoglobin Concent 34.8 g/dl (32-36) Platelet Count 205 K/uL (130-400) Mean Platelet Volume 9.2 fL (7.4-10.4) Neutrophils (%) (Auto) 66.5 % Lymphocytes (%) (Auto) 22.5 % Monocytes (%) (Auto) 9.9 % Eosinophils (%) (Auto) 0.3 % Basophils (%) (Auto) 0.5 % Neutrophils # (Auto) 4.16 K/uL (1.4-6.5) Lymphocytes # (Auto) 1.41 K/uL (1.2-3.4) Monocytes # (Auto) 0.62 K/uL (0.11-0.59) Eosinophils # (Auto) 0.02 K/uL (0-0.5) Basophils # (Auto) 0.03 K/uL (0-0.2) RDW Standard Deviation 46.2 fL (36.4-46.3) RDW Coefficient of Variation 13.1 % (11.5-14.5) Immature Granulocyte % (Auto) 0.3 % Immature Granulocyte # (Auto) 0.02 K/uL (0.00-0.02) Prothrombin Time 9.5 SECONDS (9.0-12.0) Prothromb Time International Ratio 0.9 (0.9-1.1) Activated Partial Thromboplast Time 24.8 SECONDS (21.0-31.0) Partial Thromboplastin Ratio 1.0 Anion Gap 6.0 mmol/L (3-11) Est Creatinine Clear Calc Drug Dose 189.6 ml/min Estimated GFR () 124.2 Estimated GFR (Non- 107.1 BUN/Creatinine Ratio 18.4 (10-20) Calcium Level 8.1 mg/dl (8.5-10.1) Phosphorus Level 3.8 mg/dl (2.5-4.9) Magnesium Level 2.0 mg/dl (1.8-2.4) Total Bilirubin 0.2 mg/dl (0.2-1) Aspartate Amino Transf (AST/SGOT) 21 U/L (15-37) Alanine Aminotransferase (ALT/SGPT) 25 U/L (12-78) Alkaline Phosphatase 198 U/L (45-117) Total Protein 7.1 gm/dl (6.4-8.2) Albumin 3.2 gm/dl (3.4-5.0) Globulin 3.9 gm/dl (2.5-4.0) Albumin/Globulin Ratio 0.8 (0.9-2) Thyroid Stimulating Hormone (TSH) 5.170 uIu/ml (0.300-4.500) Phenytoin (Dilantin) Level 4.4 mcg/mL (10-20) Medications Administered Medications (Trade) Dose Ordered Sig/Diana Route Start Time Stop Time Status Last Admin Dose Admin Sodium Chloride 1,000 ml @ 999 mls/hr Q1H1M ONCE IV 01/11/18 23:30 01/12/18 00:30 DC 01/12/18 00:03 999 MLS/HR Phenytoin Sodium (Dilantin Er Cap) 300 mg NOW STAT PO 01/12/18 01:00 01/12/18 01:01 DC 01/12/18 01:07 300 MG ED Course Physical exam and history were performed. Nursing notes, EMR, and Medication List were personally reviewed. Patient appears to have had a seizure at home. He has a long-standing history of seizures. On examination the patient appears well without injury or significant neurologic deficit. IV access was established and labs were obtained. The patient was hydrated with normal saline. He was cared for under seizure precautions and placed on a cardiac nurse specialist. The patient's blood work is as above and was reviewed. He does not have a significantly elevated white blood cell count, gross anemia, bandemia, or significant electrolyte imbalance. Transaminases are not diagnostic. Urine is without evidence of infection. The patient's Dilantin level is low at 4.4 and he was given an additional dose of his medication here tonight. Overall the patient was monitored for some time here in the ER without any recurrence or worsening of his symptoms. He is very comfortable with discharge home as he has had several episodes like this in the past. I suspect that his seizures are breakthrough in nature as he seems to go well at nighttime with his Dilantin level, which triggers seizures from time to time. Additionally the patient was able to sleep here tonight in the ER for several periods of time, and while he was doing this he did exhibit very strong sleep apnea-like symptoms. This could also be contributing to his nighttime episodes , and I strongly recommend that he follow with his PCP for this. The patient was very pleased with this plan and voiced understanding. He is otherwise invited back to the ER with any new, worsening, or concerning symptoms. The chart was completed utilizing [employer] Speech Voice Recognition Software. Grammatical errors, random word insertions, pronoun errors, and incomplete sentences are an occasional consequence of this system due to software limitations, ambient noise, and hardware issues. Any formal questions or concerns about the content, text, or information contained within the body of this dictation should be directly addressed to the provider for clarification. . Medical Decision Differential diagnosis: Etiologies such as infection, hypoglycemia, electrolyte abnormalities, cardiac sources, intracerebral event, trauma, toxicologic, neurologic, as well as others were entertained. Impression Primary Impression: Seizure Departure Information Dispostion Home / Self-Care Condition GOOD Forms HOME CARE DOCUMENTATION FORM, Work Instructions, Return To Work: 1 day Specific Date: 12-13-17 IMPORTANT VISIT INFORMATION Patient Instructions My [facility] Additional Instructions You were seen and evaluated today on an emergency basis only. This is not a substitute for, or an effort to provide, complete comprehensive medical care. It is not possible to recognize and treat all injuries or illnesses in a single emergency department visit. For this reason it is recommended that you followup with both your primary care physician and your neurologist for ongoing care and evaluation. Your oxygen levels fall when you fall into deep sleep. This is worrisome for Sleep Apnea. We recommend you discuss this with your PCP for further studies. Continue your medications as prescribed. You are welcome to return to the emergency department anytime with new, worsening, or concerning symptoms. Work Instructions Return To Work: 1 day Specific Date: 12-13-17
== END 2018-01-12 01:36 | disposition home or self-care (01) ==
LOC: C.EDB 23:08 → C.EDA 01-12 01:36
DX: R56.9 Unspecified convulsions (principal); Z83.3 Family history of diabetes mellitus; Z82.49 Family history of ischemic heart disease and other diseases of the circulatory system; F17.200 Nicotine dependence, unspecified, uncomplicated

== ENCOUNTER → 2018-01-17 | Outpatient (CLI) | payer BC ==
--- NOTE | 2018-01-17 15:36 | DIAGNOSTIC IMAGING REPORT ---
ULTRASOUND BILATERAL LOWER EXTREMITY VENOUS CLINICAL HISTORY: Bilateral leg pain and swelling. COMPARISON STUDY: Bilateral lower extremity venous ultrasound dated 04/23/2016. TECHNIQUE: Real-time, grayscale, and color Doppler sonography of the deep veins of the right and left lower extremity was performed from the inguinal crease to the calf. Compression and augmentation were utilized. FINDINGS: There is no sonographic evidence of deep venous thrombosis identified in the right or left lower extremity. The common femoral, superficial femoral, and popliteal veins are patent and normally compressible bilaterally. The greater saphenous vein and the profunda femoris vein at the junction with the common femoral vein are clear in both legs. The visualized calf veins are patent bilaterally. IMPRESSION: There is no sonographic evidence of deep venous thrombosis identified in the right or left lower extremity. Electronically signed by: Micky Boogie M.D. 01/17/2018 3:34 PM Dictated Date/Time: 01/17/2018 3:34 PM
== END | disposition home or self-care (01) ==
LOC: C.ULTRBC 15:07
PROVIDERS: ATTEND Family Medicine
DX: M79.662 Pain in left lower leg (principal); M79.661 Pain in right lower leg; R60.9 Edema, unspecified

== ENCOUNTER 2019-02-21 14:23 | Inpatient (IN) ==
--- OUTSIDE RECORDS SUMMARY | 2019-02-21 14:26 | External Medical Summary | Continuity of Care Document ---
:1970 Author Name Keith Bedolla, Provider Address Unavailable Unavailable , Care Team Providers Name Role Phone Yassine ALAMO M.D., E. POrtega Unavailable [email or web address] Katelyn ACUNA III Unavailable Unavailable Unavailable Unavailable Unavailable Problems Smokes 1/2 pack per day (305.1) (F17.210) Radicular low back pain (724.4) (M54.10) Bilateral leg pain (729.5) (M79.604) Bulging lumbar disc (722.10) (M51.26) Lumbosacral radiculopathy (724.4) (M54.17) Complex partial seizure (345.40) (G40.209) Allergies and Adverse Reactions Keppra TABS (Allergy) Reaction: Vomiting Medications Phenytoin Sodium Extended 100 MG Oral Capsule; TAKE 4 CAPSULE Twice daily Yassine ALAMO M.D. E. P. Start: 11-Feb-2015 Quantity: 240 Refills: 11 Meloxicam 15 MG Oral Tablet; TAKE 1 TABLET DAILY WITH FOOD. Yassine ALAMO M.D. E. P. Start: 04-Apr-2018 Quantity: 30 Refills: 5 Procedures Procedures not documented Immunizations Influenza Comments:denied 2012 Social History - Smoking Status Current every day smoker Plan of Treatment Planned Encounters Appointment; Lauren Metzger III, M.D. Start: 16-Apr-2019 16:[address] Planned Observations Planned Goals not documented Results No Known Results Results not documented Encounters Appointment; Lauren Metzger III, M.D. 16-Oct-2018 15:00 Encounter Diagnosis: Problem not documented Appointment; Angela Dutton PA-C 04-Jul-2018 16:00 Encounter Diagnosis: Problem not documented Appointment; Lauren Metzger III, M.D. 22-May-2018 14:00 Encounter Diagnosis: Problem not documented Appointment; Lauren Metzger III, M.D. 04-Apr-2018 11:30 Encounter Diagnosis: Problem not documented Appointment; Lauren Metzger III, M.D. 22-Sep-2017 11:15 Encounter Diagnosis: Problem not documented Appointment; Angela Dutton PA-C 23-May-2017 8:30 Encounter Diagnosis: Problem not documented Appointment; Lauren Metzger III, M.D. 16-Apr-2019 16:00 Encounter Diagnosis: Problem not documented
[2019-02-21] MEDS ORDERED: SODIUM CHLORIDE 0.9% 1000ML 500 ML IV ONE (15:44)
[2019-02-21] MEDS ORDERED: ACETAMINOPHEN 1,000 MG/100 ML VIAL IV STA (15:44)
--- NOTE | 2019-02-21 16:00 | XRay Report ---
XR chest 1V portable HISTORY: Sepsis COMPARISON: Chest 04/23/2016. FINDINGS: No pneumothorax. No pleural effusions. The heart remains top normal in size. Diffuse inters titial thickening persists. This may be technical. No new focal lung consolidations to suggest pneumo anjelica. No evidence for pulmonary edema. IMPRESSION: No significant change compared to the prior study. No acute process. Electronically signed by: Naveed Alfonso M.D. 02/21/2019 3:59 PM
[2019-02-21 16:20] LABS: Basophils # (auto) 0.01 K/uL (0-0.2); Basophils % (auto) 0.1 %; Eosinophils # (auto) 0.01 K/uL (0-0.5); Eosinophils % (auto) 0.1 %; Hemoglobin 17.1 g/dL (14.0-18.0); Immature Granulocytes # (auto) 0.04 K/uL (0.00-0.02); Immature Granulocytes % (auto) 0.3 %; Lymphocytes # (auto) 0.35 K/uL (1.2-3.4); Lymphocytes % (auto) 2.5 %; Mean Corpuscular Hgb Conc 32.9 g/dL (32-36); Mean Corpuscular Volume 94.9 fL (80-100); Mean Platelet Volume 9.5 fL (7.4-10.4); Monocytes % (auto) 0.7 %; Neutrophils # (auto) 13.46 K/uL (1.4-6.5); Neutrophils % (auto) 96.3 %; Platelet Count 213 K/uL (130-400); RDW Standard Deviation 49.1 fL (36.4-46.3); Red Blood Count 5.48 M/uL (4.7-6.1); White Blood Count 13.97 K/uL (4.8-10.8)
[2019-02-21 16:32] LABS: Partial Thromboplastin Ratio 0.9; Partial Thromboplastin Time 23.1 Seconds (21.0-31.0); Prothrombin Time 9.9 Seconds (9.0-12.0)
[2019-02-21 16:37] LABS: Alanine Aminotransferase 315 U/L (12-78); Albumin Level 3.5 gm/dl (3.4-5.0); Aspartate Aminotransferase 393 U/L (15-37); BUN Creatinine Ratio 10.5 (10-20); Blood Urea Nitrogen 9 mg/dl (7-18); Calcium 9.1 mg/dl (8.5-10.1); Carbon Dioxide 31 mmol/L (21-32); Chloride 99 mmol/L (98-107); Creatinine Clr Calc Pharmacy 173.4 ml/min; Est GFR (African American) 119.1; Est GFR (Non-African American) 102.8; Glucose 150 mg/dl (70-99); Magnesium 1.7 mg/dl (1.8-2.4); Potassium 4.2 mmol/L (3.5-5.1); Sodium 136 mmol/L (136-145)
[2019-02-21 16:42] LABS: Albumin Globulin Ratio 0.7 (0.9-2); Alkaline Phosphatase 420 U/L (45-117); Bilirubin,Total 1.5 mg/dl (0.2-1); Globulin 5.2 gm/dl (2.5-4.0); NT Pro B Type Natriuretic Pept 9 pg/ml (0-450); Total Protein 8.7 gm/dl (6.4-8.2); Troponin I < 0.015 ng/ml (0-0.045)
[2019-02-21] MEDS ORDERED: OPTIRAY 320 125ml IV PRN (17:12)
[2019-02-21] MEDS ORDERED: MAGNESIUM SULFATE / D5W 1 GM/100 ML BAG IV ONE (17:12)
--- NOTE | 2019-02-21 17:28 | CT Scan Report ---
CT angio chest PE protocol CT DOSE: HISTORY: Chest pain. Dyspnea. PE TECHNIQUE: Multiaxial CT images of the chest were performed following the intravenous administration of contrast to evaluate the pulmonary arteries. Maximal intensity projection images were also obtaine d. A dose lowering technique was utilized adhering to the principles of ALARA. COMPARISON STUDY: 04/23/2016. Compromised study technically due to patient body habitus. FINDINGS: Thoracic aorta is normal in course and caliber. No evidence for aneurysm or dissection. The central and first order pulmonary arterial vasculature is unremarkable. Vertebral vessels are difficult to evaluate due to patient body habitus and associated image resoluti on compromise. Scattered basilar atelectatic change. IMPRESSION: 1. No evidence for pulmonary embolus involving the central or first order pulmonary arterial vessels. 2. Limited evaluation of the peripheral third order vessels due to body habitus consideration. 3. Mid and upper lungs are considered clear. 4. Scattered bibasilar atelectatic change. The above report was generated using voice recognition software. It may contain grammatical, syntax or spelling errors. Electronically signed by: Tony Haskins M.D. 02/21/2019 5:26 PM
--- NOTE | 2019-02-21 17:29 | CT Scan Report ---
CT abd pelvis IV con only CLINICAL HISTORY: Upper abdominal pain COMPARISON STUDY: None. TECHNIQUE: The patient was scanned in a dynamic helical fashion during intravenous administration of 116 cc of Optiray 320. The examination is somewhat technical standpoint due to the patient's large sierra dy habitus (410 pounds) A dose lowering technique was utilized adhering to the principles of ALARA. CT DOSE: 3253.28 mGy.cm FINDINGS: Lower chest: There are mild right middle lobe and basilar atelectatic changes. Liver: The liver is mildly enlarged. No focal hepatic masses are visualized. There is no ductal dilat ation. The portal vein appears patent. Gallbladder: Equivocal cholelithiasis. No pericholecystic infiltration. No wall thickening. Spleen: Mildly enlarged measuring 12.6 cm. Pancreas: Unremarkable. Adrenal glands: Unremarkable. Kidneys: There is symmetric renal cortical enhancement. The kidneys are normal in size without hydron ephrosis. Bowel: There are no transition zones indicate bowel obstruction. There is colonic diverticulosis. The re is no evidence of acute diverticulitis. Portions of the ascending colon or calyceal view of the st udy. The appendix is not visualized with certainty. Peritoneum: There is no intraperitoneal free air or abdominal ascites. Vasculature: The abdominal aorta is normal in course and caliber. Adenopathy: None. Pelvic viscera: The bladder, and pelvic viscera are unremarkable. Skeletal structures: No destructive osseous lesions are seen. There are multilevel degenerative gutierrez es with prominent osteophytes. IMPRESSION: 1. Technically limited study. Portions of the right colon are excluded from the [id number] due to the patient's large body habitus 2. Mild hepatosplenomegaly 3. Equivocal cholelithiasis 4. No evidence of bowel obstruction. No evidence of free air 5. Diverticulosis. No evidence of acute diverticulitis. Electronically signed by: Silvio Nichole M.D. 02/21/2019 5:28 PM
[2019-02-21] MEDS ORDERED: SODIUM CHLORIDE 0.9% 1000ML 1,000 ML IV STA (18:02)
[2019-02-21] MEDS ORDERED: PIPERACILLIN/TAZOBACTAM 4.5 GM/120 ML BAG IV ONE (18:06)
[2019-02-21] MEDS ORDERED: POTASSIUM PHOS 3 MMOL/1 ML INFUSION IV STA ×2 (18:22→20:21)
--- NOTE | 2019-02-21 18:22 | Emergency Department Note ---
Entered by Lyric Call acting as a scribe for Artemio Rodriguez MD History of Present Illness General Chief complaint: Shortness of Breath/Dyspnea Stated complaint: SOB, ABD PAIN Time Seen by Provider: 02/21/19 15:30 Source: patient Mode of arrival: ambulatory Limitations: no limitations History of Present Illness Onset (ago): day(s) (last night) Location: chest Pain Consistency: + other (worsening) Maximum Pain Intensity: 8 Quality: + other (He describes the pain as an elephant sitting on his chest.) Exacerbated By: + movement (exertion) Associated symptoms: + other (The patient complains of upper abdominal pain. The patient denies diarrhea and urinary symptoms. ); no nausea/vomiting The patient is a 48 year old male with a history of seizures who presents to the ED with complaints of worsening shortness of breath that onset last night. The patient presents with his fianc. The patient complains of upper abdominal pain, foot redness, and chronic leg edema. He describes the pain as an elephant sitting on his chest. The patient states that he wore compression socks for the first time yesterday. He notes that the pain is exacerbated with exertion. The patient denies nausea, vomiting, diarrhea, and urinary symptoms. He states that he is not on any blood thinners. Home Medications Home Medications Medication Instructions Recorded Confirmed Type phenytoin sodium extended 400 mg PO BID 09/22/18 02/21/19 History Allergies Allergy/AdvReac Type Severity Reaction Status Date / Time No Known Allergies Allergy Verified 02/21/19 16:07 Past Med/Surg History Medical History Seizure disorder (Chronic) Tobacco abuse (Chronic) Low back pain with left-sided sciatica (Inactive) Surgical History History of ear surgery (Chronic) Family History Mother Diabetes Hypertension Sister Diabetes Hypertension Social History Preferred Language: Vietnamese Communication Ability: Effective Visual Impairment: No Limitations Hearing Ability: Normal Warehouse Supervisor Required: No Beliefs That Will Affect Care: None marital status: Engaged marital status details: Fiance Current Living Situation: Significant Other Other Information That Helps Us Care for You: No Feels Safe at Home: Yes Safety Concerns: Feels Safe At This Time Smoking Status: Current every day smoker Tobacco Type: cigarettes Cigarettes Per Day: 10 Do You Dip or Chew Tobacco: Yes (1 can/week) Tobacco Cessation Education Requested by Patient: No Hx Alcohol Use: No Hx Substance Use: No Review of Systems See HPI for pertinent positives & negatives. and A total of 10 systems reviewed and were otherwise negative Physical Exam Vital Signs Vital Signs - 24 hr 02/21/19 14:27 02/21/19 14:31 02/21/19 15:40 Temperature 35.4 C L Temperature Source Oral Sepsis Recent Fever Within 48 Hours No Sepsis Action Taken by Nursing No Action Required Pulse Rate 69 95 H Pulse Rate [Right Finger] Pulse Rate from SpO2 Sensor 94 H Pulse Rhythm Regular Pulse Strength Normal Respiratory Rate 24 29 H Respiratory Effort / Characteristics Short of Breath Respiratory Depth Normal Respiratory Pattern Regular Blood Pressure 194/102 H Blood Pressure [Left Arm] Blood Pressure Mean 132 Blood Pressure Mean [Left Arm] Blood Pressure Position Sitting Pulse Oximetry 97 96 93 Oxygen Delivery Method Room Air Room Air 02/21/19 16:00 02/21/19 16:26 02/21/19 16:27 Temperature Temperature Source Sepsis Recent Fever Within 48 Hours Sepsis Action Taken by Nursing Pulse Rate 93 H 110 H Pulse Rate [Right Finger] 105 H Pulse Rate from SpO2 Sensor 90 111 H Pulse Rhythm Pulse Strength Respiratory Rate 29 H 32 H 32 H Respiratory Effort / Characteristics Respiratory Depth Respiratory Pattern Blood Pressure 193/93 H Blood Pressure [Left Arm] 193/93 H Blood Pressure Mean 126 Blood Pressure Mean [Left Arm] 126 Blood Pressure Position Pulse Oximetry 94 92 93 Oxygen Delivery Method Room Air 02/21/19 16:30 02/21/19 17:00 02/21/19 17:30 Temperature Temperature Source Sepsis Recent Fever Within 48 Hours Sepsis Action Taken by Nursing Pulse Rate 108 H 113 H 108 H Pulse Rate [Right Finger] Pulse Rate from SpO2 Sensor 110 H 113 H 108 H Pulse Rhythm Pulse Strength Respiratory Rate 37 H 36 H 34 H Respiratory Effort / Characteristics Respiratory Depth Respiratory Pattern Blood Pressure 144/84 H Blood Pressure [Left Arm] Blood Pressure Mean 104 Blood Pressure Mean [Left Arm] Blood Pressure Position Pulse Oximetry 92 92 91 Oxygen Delivery Method 02/21/19 17:31 02/21/19 17:32 Temperature Temperature Source Sepsis Recent Fever Within 48 Hours Sepsis Action Taken by Nursing Pulse Rate 110 H 113 H Pulse Rate [Right Finger] Pulse Rate from SpO2 Sensor 110 H 114 H Pulse Rhythm Pulse Strength Respiratory Rate 30 H 35 H Respiratory Effort / Characteristics Respiratory Depth Respiratory Pattern Blood Pressure 141/69 H Blood Pressure [Left Arm] Blood Pressure Mean 93 Blood Pressure Mean [Left Arm] Blood Pressure Position Pulse Oximetry 91 92 Oxygen Delivery Method GENERAL: BMI 60.6 kg/m^2. Awake, alert, uncomfortable-appearing, in no distress HENT: Normocephalic, atraumatic. Oropharynx with dry mucous membranes and otherwise unremarkable. EYES: Normal conjunctiva. Sclera non-icteric. NECK: Supple. No nuchal rigidity. FROM. No JVD. RESPIRATORY: Scant intermittent wheeze, otherwise clear. CARDIAC: Regular rate, normal rhythm. Extremities warm and well perfused. Pulses equal. ABDOMEN: Soft, non-distended. Mild epigastric tenderness to palpation. No rebound or guarding. No masses. RECTAL: Deferred. MUSCULOSKELETAL: Chest examination reveals no tenderness. The back is symmetrical on inspection without obvious abnormality. There is no CVA tenderness to palpation. No joint edema. LOWER EXTREMITIES: Calves are equal size bilaterally and non-tender. Scant edema. No discoloration. NEURO: Normal sensorium. No sensory or motor deficits noted. SKIN: No rash or jaundice noted. Course 153: Past medical records reviewed. The patient was evaluated in room C5. A complete history and physical examination was performed. 1803: I reviewed the patient's case with Carmen Cantu. She will evaluate the patient for further management. Consultations Consultation #1: 1804: I reviewed the patient's case with Carmen Cantu. She will evaluate the patient for further management. Time: 18:04 Administered Medications Sodium Chloride (Nss 1000ml) 1,000 mls @ 125 mls/hr IV .Q8H DANDRE Stop: 03/23/19 20:20 Last Admin: 02/21/19 20:41 Dose: 125 mls/hr Documented by: [id number] Potassium Phosphate 6 mmol/ (Sodium Chloride) 252 mls @ 88 mls/hr IV NOW ONE Stop: 02/21/19 23:51 Last Admin: 02/21/19 22:17 Dose: 88 mls/hr Documented by: [id number] Piperacillin Sod/Tazobactam (Sod 4.5 gm/ Dextrose) 120 mls @ 30 mls/hr IV Q8H ON LICENSE OF [facility]; Protocol Stop: 03/03/19 21:59 Last Admin: 02/21/19 22:24 Dose: 30 mls/hr Documented by: [id number] Phenytoin Sodium (Dilantin Er) 400 mg PO BID DANDRE Stop: 03/23/19 20:59 Last Admin: 02/21/19 22:17 Dose: 400 mg Documented by: [id number] Discontinued Medications Acetaminophen (Ofirmev) 1,000 mg in 100 mls @ 400 mls/hr IV NOW STA Stop: 02/21/19 15:58 Last Infusion: 02/21/19 20:22 Dose: 400 mls/hr Documented by: [id number] Admin: 02/21/19 16:24 Dose: 400 mls/hr Documented by: [id number] Sodium Chloride (Nss 1000ml) 500 mls @ 999 mls/hr IV .Q31M ONE Stop: 02/21/19 16:14 Last Infusion: 02/21/19 22:43 Dose: 999 mls/hr Documented by: [id number] Admin: 02/21/19 16:25 Dose: 999 mls/hr Documented by: [id number] Magnesium Sulfate/Dextrose (Magnesium Sulfate / D5w) 1 gm in 100 mls @ 100 mls/hr IV ONE ONE Stop: 02/21/19 18:11 Last Infusion: 02/21/19 22:42 Dose: 100 mls/hr Documented by: [id number] Admin: 02/21/19 17:44 Dose: 100 mls/hr Documented by: [id number] Sodium Chloride (Nss 1000ml) 1,000 mls @ 125 mls/hr IV .Q8H STA Stop: 02/22/19 02:01 Last Admin: 02/21/19 22:49 Dose: Not Given Documented by: [id number] Piperacillin Sod/Tazobactam Sod (Zosyn) 4.5 gm in 120 mls @ 30 mls/hr IV NOW ONE Stop: 02/21/19 22:05 Last Infusion: 02/21/19 22:44 Dose: 30 mls/hr Documented by: [id number] Admin: 02/21/19 18:29 Dose: 30 mls/hr Documented by: [id number] Potassium Phosphate 6 mmol/ (Sodium Chloride) 102 mls @ 88 mls/hr IV ONE ONE Stop: 02/21/19 19:54 Last Infusion: 02/21/19 22:43 Dose: 88 mls/hr Documented by: [id number] Admin: 02/21/19 20:23 Dose: 88 mls/hr Documented by: [id number] Ioversol (Optiray 320 125ml) 116 ml IV ONCE PRN PRN Reason: Interaction Checking Stop: 02/25/19 17:11 Last Admin: 02/21/19 17:12 Dose: 116 ml Documented by: [id number] Medical Decision Making Differential Diagnosis Differential diagnoses Pneumonia, bronchitis, COPD/Asthma exacerbation, pneumothorax, pulmonary embolism, congestive heart failure, acute coronary syndrome as well as other etiologies were entertained. Medical Records Attestation: I reviewed the patient's medical records. Home Medications Current Medication List: was personally reviewed by me Laboratory Data Attestation: I reviewed the patient's lab results. Result diagrams: 02/21/19 15:57 02/21/19 15:57 Lab Results 02/21/19 02/21/19 02/21/19 Range/Units 15:57 15:57 15:57 WBC 13.97 H (4.8-10.8) K/uL RBC 5.48 (4.7-6.1) M/uL Hgb 17.1 (14.0-18.0) g/dL Hct 52.0 (42-52) % MCV 94.9 (80-100) fL MCH 31.2 (25-34) pg MCHC 32.9 (32-36) g/dL RDW Std Deviation 49.1 H (36.4-46.3) fL RDW Coeff of Nav 14.0 (11.5-14.5) % Plt Count 213 (130-400) K/uL MPV 9.5 (7.4-10.4) fL Immature Gran % (Auto) 0.3 % Neut % (Auto) 96.3 % Lymph % (Auto) 2.5 % Amelia % (Auto) 0.7 % Eos % (Auto) 0.1 % Baso % (Auto) 0.1 % Immature Gran # (Auto) 0.04 H (0.00-0.02) K/uL Neut # (Auto) 13.46 H (1.4-6.5) K/uL Lymph # (Auto) 0.35 L (1.2-3.4) K/uL Amelia # (Auto) 0.10 L (0.11-0.59) K/uL Eos # (Auto) 0.01 (0-0.5) K/uL Baso # (Auto) 0.01 (0-0.2) K/uL PT 9.9 (9.0-12.0) Seconds INR 1.0 (0.9-1.1) APTT 23.1 (21.0-31.0) Seconds PTT Ratio 0.9 Sodium (136-145) mmol/L Potassium (3.5-5.1) mmol/L Chloride (98-107) mmol/L Carbon Dioxide (21-32) mmol/L Anion Gap (3-11) BUN (7-18) mg/dl Creatinine (0.6-1.4) mg/dl Est Cr Clr Drug Dosing ml/min Est GFR ( Amer) Est GFR (Non-Af Amer) BUN/Creatinine Ratio (10-20) Glucose (70-99) mg/dl Lactate (0.4-2.0) mmol/L Calcium (8.5-10.1) mg/dl Phosphorus (2.5-4.9) mg/dl Magnesium (1.8-2.4) mg/dl Total Bilirubin (0.2-1) mg/dl Direct Bilirubin (0-0.2) mg/dl AST (15-37) U/L ALT (12-78) U/L Alkaline Phosphatase (45-117) U/L Troponin I (0-0.045) ng/ml NT-Pro-B Natriuret Pep (0-450) pg/ml Total Protein (6.4-8.2) gm/dl Albumin (3.4-5.0) gm/dl Globulin (2.5-4.0) gm/dl Albumin/Globulin Ratio (0.9-2) Lipase (73-393) U/L Phenytoin 5.3 L (10-20) mcg/ml 02/21/19 02/21/19 Range/Units 15:57 15:57 WBC (4.8-10.8) K/uL RBC (4.7-6.1) M/uL Hgb (14.0-18.0) g/dL Hct (42-52) % MCV (80-100) fL MCH (25-34) pg MCHC (32-36) g/dL RDW Std Deviation (36.4-46.3) fL RDW Coeff of Nav (11.5-14.5) % Plt Count (130-400) K/uL MPV (7.4-10.4) fL Immature Gran % (Auto) % Neut % (Auto) % Lymph % (Auto) % Amelia % (Auto) % Eos % (Auto) % Baso % (Auto) % Immature Gran # (Auto) (0.00-0.02) K/uL Neut # (Auto) (1.4-6.5) K/uL Lymph # (Auto) (1.2-3.4) K/uL Amelia # (Auto) (0.11-0.59) K/uL Eos # (Auto) (0-0.5) K/uL Baso # (Auto) (0-0.2) K/uL PT (9.0-12.0) Seconds INR (0.9-1.1) APTT (21.0-31.0) Seconds PTT Ratio Sodium 136 (136-145) mmol/L Potassium 4.2 (3.5-5.1) mmol/L Chloride 99 (98-107) mmol/L Carbon Dioxide 31 (21-32) mmol/L Anion Gap 6.0 (3-11) BUN 9 (7-18) mg/dl Creatinine 0.87 (0.6-1.4) mg/dl Est Cr Clr Drug Dosing 173.4 ml/min Est GFR ( Amer) 119.1 Est GFR (Non-Af Amer) 102.8 BUN/Creatinine Ratio 10.5 (10-20) Glucose 150 H (70-99) mg/dl Lactate 2.5 H* (0.4-2.0) mmol/L Calcium 9.1 (8.5-10.1) mg/dl Phosphorus 2.0 L (2.5-4.9) mg/dl Magnesium 1.7 L (1.8-2.4) mg/dl Total Bilirubin 1.5 H (0.2-1) mg/dl Direct Bilirubin 1.0 H (0-0.2) mg/dl AST 393 H (15-37) U/L ALT 315 H (12-78) U/L Alkaline Phosphatase 420 H (45-117) U/L Troponin I < 0.015 (0-0.045) ng/ml NT-Pro-B Natriuret Pep 9 (0-450) pg/ml Total Protein 8.7 H (6.4-8.2) gm/dl Albumin 3.5 (3.4-5.0) gm/dl Globulin 5.2 H (2.5-4.0) gm/dl Albumin/Globulin Ratio 0.7 L (0.9-2) Lipase 82 (73-393) U/L Phenytoin (10-20) mcg/ml Imaging Data Radiologist's Impression: Radiology results as stated below per my review and the radiologist's interpretation: CT angio chest PE protocol CT DOSE: HISTORY: Chest pain. Dyspnea. PE TECHNIQUE: Multiaxial CT images of the chest were performed following the intravenous administration of contrast to evaluate the pulmonary arteries. Maximal intensity projection images were also obtained. A dose lowering technique was utilized adhering to the principles of ALARA. COMPARISON STUDY: 04/23/2016. Compromised study technically due to patient body habitus. FINDINGS: Thoracic aorta is normal in course and caliber. No evidence for aneurysm or dissection. The central and first order pulmonary arterial vasculature is unremarkable. Vertebral vessels are difficult to evaluate due to patient body habitus and associated image resolution compromise. Scattered basilar atelectatic change. IMPRESSION: 1. No evidence for pulmonary embolus involving the central or first order pulmonary arterial vessels. 2. Limited evaluation of the peripheral third order vessels due to body habitus consideration. 3. Mid and upper lungs are considered clear. 4. Scattered bibasilar atelectatic change. The above report was generated using voice recognition software. It may contain grammatical, syntax or spelling errors. Electronically signed by: Tony Haskins M.D. 02/21/2019 5:26 PM Dictated: 02/21/191721 Transcribed: 02/21/191721 CT abd pelvis IV con only CLINICAL HISTORY: Upper abdominal pain COMPARISON STUDY: None. TECHNIQUE: The patient was scanned in a dynamic helical fashion during intravenous administration of 116 cc of Optiray 320. The examination is somewhat technical standpoint due to the patient's large body habitus (410 pounds) A dose lowering technique was utilized adhering to the principles of ALARA. CT DOSE: 3253.28 mGy.cm FINDINGS: Lower chest: There are mild right middle lobe and basilar atelectatic changes. Liver: The liver is mildly enlarged. No focal hepatic masses are visualized. There is no ductal dilatation. The portal vein appears patent. Gallbladder: Equivocal cholelithiasis. No pericholecystic infiltration. No wall thickening. Spleen: Mildly enlarged measuring 12.6 cm. Pancreas: Unremarkable. Adrenal glands: Unremarkable. Kidneys: There is symmetric renal cortical enhancement. The kidneys are normal in size without hydronephrosis. Bowel: There are no transition zones indicate bowel obstruction. There is colonic diverticulosis. There is no evidence of acute diverticulitis. Portions of the ascending colon or calyceal view of the study. The appendix is not v isualized with certainty. Peritoneum: There is no intraperitoneal free air or abdominal ascites. Vasculature: The abdominal aorta is normal in course and caliber. Adenopathy: None. Pelvic viscera: The bladder, and pelvic viscera are unremarkable. Skeletal structures: No destructive osseous lesions are seen. There are multilevel degenerative changes with prominent osteophytes. IMPRESSION: 1. Technically limited study. Portions of the right colon are excluded from the [id number] due to the patient's large body habitus 2. Mild hepatosplenomegaly 3. Equivocal cholelithiasis 4. No evidence of bowel obstruction. No evidence of free air 5. Diverticulosis. No evidence of acute diverticulitis. Electronically signed by: Silvio Nichole M.D. 02/21/2019 5:28 PM Dictated: 02/21/19 1720 Transcribed: 02/21/19 1720 XR chest 1V portable HISTORY: Sepsis COMPARISON: Chest 04/23/2016. FINDINGS: No pneumothorax. No pleural effusions. The heart remains top normal in size. Diffuse interstitial thickening persists. This may be technical. No new focal lung consolidations to suggest pneumonia. No evidence for pulmonary edema. IMPRESSION: No significant change compared to the prior study. No acute process. Electronically signed by: Naveed Alfonso M.D. 02/21/2019 3:59 PM Dictated: 02/21/19 1558 Transcribed: 02/21/19 1558 ECG Data Attestation: I personally reviewed and interpreted this ECG as follows: Indication: SOB/dyspnea Rate (beats per minute): 94 Rhythm: normal sinus Findings: + other (nonspecific T wave abnormalities); no acute ischemic change Blood Pressure Blood Pressure Findings: Elevated blood pressure Blood Pressure Disposition: further management by hospitalist JULIET Meade The patient is a pleasant 48-year-old gentleman with a past medical history of tobacco abuse, seizure disorder on phenytoin who presents emergency department with upper abdominal pain that began acutely today per hpi. On arrival patient is uncomfortable, rigorous but in no acute distress, temperature 35.4, tachypneic in the 30s and tachycardic in the 110s in the setting of pain and blood pressure stable. Patient appears clinically dry. He has mild upper abdominal tenderness with equivocal Gamino sign. No peritoneal signs. EKG with nonspecifc TW abnormalities and otherwise without overt evidence of acute ischemia. CXR negative. CT the abdomen pelvis with equivocal cholelithiasis. Otherwise no acute process. CTA of the chest negative for central or first- order PEs. WBC 13.9, nonspecific. H/H and platelets within normal limits. Lactate slightly elevated at 2.5 consistent with the patient's clinically dry appearance. However, chemistry without acidosis. Magnesium 1.7 with repletion provided. Phosphorus 2.0 with repletion provided. Patient exhibits new transaminitis with total bilirubin 1.5, direct bilirubin 1.0, AST 393, ALT 315, alk phos 420. Troponin negative. Lipase within normal limits. Given the patient's symptoms in the setting of new transaminitis reasonable to admit the patient for further evaluation of his gallbladder with likely MRCP and GI consultation. Case discussed with Pepe Castrejon, who will evaluate the patient for admission. Will treat empirically with Zosyn at this time, blood cultures drawn with initial lab work are pending. Impression & Plan Transaminitis, Abdominal pain, acute, epigastric Discharge Plan Visit Data *Final* Discharge Date/Time: 02/21/19 19:21 Chief Complaint: Shortness of Breath/Dyspnea Stated Complaint: SOB, ABD PAIN ED Provider: Artemio Rodriguez Discharge Problem: Transaminitis, Abdominal pain, acute, epigastric Patient Disposition: Admitted As Inpatient Discharge Instructions Interventions: ED Discharge Assessment Last Done: 02/21/19 19:21 The scribe's documentation has been prepared under my direction and personally reviewed by me in its entirety. I confirm that the note above accurately reflects all work, treatment, procedures, and medical decision making performed by me.
[2019-02-21] MEDS ORDERED: POTASSIUM PHOSPHATE 6 MMOL in 0.9 % SODIUM CHLORIDE 100 ML IV ONE (18:45)
--- NOTE | 2019-02-21 19:06 | History & Physical Report ---
Date of Service February 21, 2019 Assessment & Plan (1) Sepsis: (2) Transaminitis: -[facility] -Patient presenting with reports of abdominal pain, chest pain, shortness of breath -On presentation, hypothermic 35.4, WBC 13.9K, tachycardic, tachypnea, lactic acid 2.5; BP stable -CT ABD/pelvis showing equivocal cholelithiasis -suspect source as cholecystitis/choledocholithiasis/cholangitis -MRCP -Received Zosyn in the ED, will continue with -IVF, follow lactic acid -Follow blood cultures -Check hepatitis panel -Clear liquids, n.p.o. after midnight -GI consult -May need general surgery as well (3) Chest pain: (4) Acute electrocardiogram changes: -By history, chest pain appears to be GI in nature however given EKG changes, will rule out ACS -CTA chest negative for PE -EKG shows new T wave inversions in leads II,III, aVF, V4 through V6 -Currently chest pain-free -Initial troponin negative, will continue to trend -Resting echo (5) Hypophosphatemia: (6) Hypomagnesemia: -Replace, follow levels (7) Seizure disorder: -Stable, continue Dilantin (8) DVT prophylaxis: -SCDs in the event patient needs invasive procedure History of Present Illness Chief Complaint: Abdominal pain, chest pain, shortness of breath Primary Care Provider: Tom Paez MD 48-year-old male presents the ED with abdominal pain, chest pain, shortness of breath. Patient reports his symptoms began suddenly at 11:00 this morning. Symptoms were persistent until he arrived to the ED and received pain medications. Patient describes the abdominal pain as being located in the epigastric area. He reports the pain was radiating up into his chest and felt like indigestion. Pain was also radiating around into his back on both sides. He reports associated shortness of breath and nausea. No lightheadedness, dizziness, diaphoresis, syncopal event. He denies vomiting or diarrhea. He had shaking chills however did not take his temperature. He denies any urinary symptoms. In the ED, initial vitals show temp 35.4, tachycardia, tachypnea, stable BP. Labs show WBC 13.9K, lactate 2.5, hypomagnesemia, hypophosphatemia, and transaminitis. Initial troponin is negative and EKG shows new T wave inversions in leads II, III, aVF, V4 through V6. CTA chest is negative for PE. CT ABD/pelvis shows equivocal cholelithiasis however limited study secondary to patient's size. Patient was given IVF, IV Zosyn, IV potassium and magnesium replacement, IV Tylenol. Allergies Allergy/AdvReac Type Severity Reaction Status Date / Time No Known Allergies Allergy Verified 02/21/19 16:07 Home Medications Home Medications Medication Instructions Recorded Confirmed Type phenytoin sodium extended 400 mg PO BID 09/22/18 02/21/19 History Past Med/Surg History Medical History Seizure disorder (Chronic) Tobacco abuse (Chronic) Low back pain with left-sided sciatica (Inactive) Surgical History History of ear surgery (Chronic) Family History Mother Diabetes Hypertension Sister Diabetes Hypertension Social History Preferred Language: Lao Communication Ability: Effective Visual Impairment: No Limitations Hearing Ability: Normal marital status: Engaged marital status details: Richy Feels Safe at Home: Yes Smoking Status: Current every day smoker Hx Alcohol Use: No Review of Systems Review of Systems: ROS per HPI, all other systems reviewed and negative Physical Exam Constitutional: WD/WN, vitals as above + obese Eyes: PERRL, conjunctivae normal, anicteric sclerae Respiratory: normal respiratory effort; no respiratory distress Auscultation: + diminished lung sounds Cardiovascular: Rate/Rhythm: regular rate and regular rhythm Vessels: normal peripheral pulses Extremities: + edema (+1 BLE) Chest (Breasts): Additional Comments: Chest wall nontender to palpation Gastrointestinal (Abdomen): normal bowel sounds, soft, nontender, no hepatosplenomegaly Musculoskeletal: no cyanosis or clubbing, extremities motor strength 5/5 Skin: no rashes, warm and dry Neurologic: PERRL, EOMI, accommodation nl, no face palsy, no dysarthria Psychiatric: A+Ox3, euthymic affect Results & Data Vital Signs (Past 12 Hours) Vital Signs Temp Pulse Pulse Resp BP BP Pulse Ox 02/21/19 17:32 113 H 35 H 92 02/21/19 17:31 110 H 30 H 141/69 H 91 02/21/19 17:30 108 H 34 H 144/84 H 91 02/21/19 17:00 113 H 36 H 92 02/21/19 16:30 108 H 37 H 92 02/21/19 16:27 110 H 32 H 193/93 H 93 02/21/19 16:26 105 H 32 H 193/93 H 92 02/21/19 16:00 93 H 29 H 94 02/21/19 15:40 95 H 29 H 93 02/21/19 14:31 96 02/21/19 14:27 35.4 C L 69 24 194/102 H 97 Laboratory Results Laboratory Last Values WBC 13.97 K/uL (4.8-10.8) H 02/21/19 15:57 RBC 5.48 M/uL (4.7-6.1) 02/21/19 15:57 Hgb 17.1 g/dL (14.0-18.0) 02/21/19 15:57 Hct 52.0 % (42-52) 02/21/19 15:57 MCV 94.9 fL (80-100) 02/21/19 15:57 MCH 31.2 pg (25-34) 02/21/19 15:57 MCHC 32.9 g/dL (32-36) 02/21/19 15:57 RDW Std Deviation 49.1 fL (36.4-46.3) H 02/21/19 15:57 RDW Coeff of Nav 14.0 % (11.5-14.5) 02/21/19 15:57 Plt Count 213 K/uL (130-400) 02/21/19 15:57 MPV 9.5 fL (7.4-10.4) 02/21/19 15:57 Immature Gran % (Auto) 0.3 % 02/21/19 15:57 Neut % (Auto) 96.3 % 02/21/19 15:57 Lymph % (Auto) 2.5 % 02/21/19 15:57 [place] % (Auto) 0.7 % 02/21/19 15:57 Eos % (Auto) 0.1 % 02/21/19 15:57 Baso % (Auto) 0.1 % 02/21/19 15:57 Immature Gran # (Auto) 0.04 K/uL (0.00-0.02) H 02/21/19 15:57 Neut # (Auto) 13.46 K/uL (1.4-6.5) H 02/21/19 15:57 Lymph # (Auto) 0.35 K/uL (1.2-3.4) L 02/21/19 15:57 [place] # (Auto) 0.10 K/uL (0.11-0.59) L 02/21/19 15:57 Eos # (Auto) 0.01 K/uL (0-0.5) 02/21/19 15:57 Baso # (Auto) 0.01 K/uL (0-0.2) 02/21/19 15:57 PT 9.9 Seconds (9.0-12.0) 02/21/19 15:57 INR 1.0 (0.9-1.1) 02/21/19 15:57 APTT 23.1 Seconds (21.0-31.0) 02/21/19 15:57 PTT Ratio 0.9 02/21/19 15:57 Sodium 136 mmol/L (136-145) 02/21/19 15:57 Potassium 4.2 mmol/L (3.5-5.1) 02/21/19 15:57 Chloride 99 mmol/L (98-107) 02/21/19 15:57 Carbon Dioxide 31 mmol/L (21-32) 02/21/19 15:57 6.0 (3-11) 02/21/19 15:57 BUN 9 mg/dl (7-18) 02/21/19 15:57 0.87 mg/dl (0.6-1.4) 02/21/19 15:57 Est Cr Clr Drug Dosing 173.4 ml/min 02/21/19 15:57 Est GFR ( Amer) 119.1 02/21/19 15:57 Est GFR (Non-Af Amer) 102.8 02/21/19 15:57 10.5 (10-20) 02/21/19 15:57 Glucose 150 mg/dl (70-99) H 02/21/19 15:57 2.5 mmol/L (0.4-2.0) H* 02/21/19 15:57 Calcium 9.1 mg/dl (8.5-10.1) 02/21/19 15:57 Phosphorus 2.0 mg/dl (2.5-4.9) L 02/21/19 15:57 Magnesium 1.7 mg/dl (1.8-2.4) L 02/21/19 15:57 1.5 mg/dl (0.2-1) H 02/21/19 15:57 1.0 mg/dl (0-0.2) H 02/21/19 15:57 AST 393 U/L (15-37) H 02/21/19 15:57 ALT 315 U/L (12-78) H 02/21/19 15:57 420 U/L (45-117) H 02/21/19 15:57 < 0.015 ng/ml (0-0.045) 02/21/19 15:57 NT-Pro-B Natriuret Pep 9 pg/ml (0-450) 02/21/19 15:57 8.7 gm/dl (6.4-8.2) H 02/21/19 15:57 3.5 gm/dl (3.4-5.0) 02/21/19 15:57 5.2 gm/dl (2.5-4.0) H 02/21/19 15:57 0.7 (0.9-2) L 02/21/19 15:57 82 U/L (73-393) 02/21/19 15:57 Phenytoin 5.3 mcg/ml (10-20) L 02/21/19 15:57 Diagnostic Findings CXR IMPRESSION: No significant change compared to the prior study. No acute process. CT ABD/PELVIS IMPRESSION: 1. Technically limited study. Portions of the right colon are excluded from the [id number] due to the patient's large body habitus 2. Mild hepatosplenomegaly 3. Equivocal cholelithiasis 4. No evidence of bowel obstruction. No evidence of free air 5. Diverticulosis. No evidence of acute diverticulitis. CTA CHEST IMPRESSION: 1. No evidence for pulmonary embolus involving the central or first order pulmonary arterial vessels. 2. Limited evaluation of the peripheral third order vessels due to body habitus consideration. 3. Mid and upper lungs are considered clear. 4. Scattered bibasilar atelectatic change. Code Status & VTE Plan VTE Prophylaxis Plan VTE Prophylaxis will be ordered: Yes Supervising Physician Co-Signing Physician Notes Patient is a 48-year-old male with history of seizure disorder, tobacco use disorder, morbid obesity and other problems presents with history of abdominal pain, chest pain, shortness of breath, with sudden onset while at rest. Patient describes abdominal pain to be epigastric in location, radiating up to the chest and back. He felt that he had a " bad heartburn". Reports associated nausea but no vomiting. He describes the chest pain to be like chest heaviness. Patient received IV fluids, antibiotics and IV Tylenol in ED and currently symptom-free. Please review HPI for complete details of presentation. He was found to be tachypneic, tachycardic, elevated white count, elevated lactate levels, transaminitis, hypomagnesemia and hypo-phosphatemia. CT abdomen showed mild hepatosplenomegaly and equivocal cholelithiasis. Also showed diverticulosis but no diverticulitis. No evidence of bowel obstruction. CTA showed no pulmonary embolus, consolidation. EKG showed T wave changes in inferior leads. On exam patient is morbidly obese, no apparent distress, lungs- decreased coarse breath sounds, S1-S2, tachycardia, no murmur, abdomen soft nontender, no guarding or rigidity, grossly no neurological focal deficits, trace pedal edema bilaterally. Patient is admitted for management of sepsis, transaminitis likely secondary to cholangitis. He will benefit from obtaining MRCP for further evaluation and management. Will start him on IV fluids, IV Zosyn. Will obtain blood cultures, hepatitis panel, trend lactate levels, consult gastroenterology. We will also check A1c, lipid panel and monitor LFTs. Will rule out ACS-trend cardiac enzymes, check resting echo, repeat EKG in the morning. Replace electrolytes as needed. Clear liquid diet, n.p.o. after midnight for possible procedure in the morning. I personally reviewed the record. Patient is interviewed and examined at bedside. Patient's care is coordinated with Carmen Laughlin [employer]ACHINE [employer]. Please refer to the documentation above for details of patient's presentation and for discussion of other issues.
[2019-02-21] MEDS ORDERED: PIPERACILL/TAZOBAC CONSULT ACTIVE PRN (20:21)
[2019-02-21] MEDS ORDERED: MoRPHine SULFATE 4 MG/ML 1 ML CARP\\VIAL IV PRN (20:21)
[2019-02-21] MEDS ORDERED: ALBUT/IPRATROP 3MG/0.5MG NEB 3 ML VIAL NEB PRN (20:21)
[2019-02-21] MEDS ORDERED: FAMOTIDINE 20 MG TAB PO PRN (20:21)
[2019-02-21] MEDS ORDERED: MoRPHine SULFATE 2 MG/ML CARP IV PRN (20:26)
[2019-02-21] MEDS: SODIUM CHLORIDE 0.9% 1000ML 1,000 ML IV SCH (20:41)
[2019-02-21] MEDS ORDERED: POTASSIUM PHOSPHATE 6 MMOL in SODIUM CHLORIDE 0.9% 250 ML IV ONE (21:00)
--- NOTE | 2019-02-21 22:12 | Magnetic Resonance Report ---
MR MRCP CLINICAL HISTORY: transaminitis dominant pain COMPARISON STUDY: CT scan the abdomen pelvis dated 02/21/2015 FINDINGS: Examination is limited from a technical standpoint due to the patient's large body habitus (418 pounds). A single coronal and axial FIESTA sequence was acquired. The patient stated he could no t breathe when lying on his back. The patient was unable to tolerate additional scanning, and examina tion was terminated. The images confirm multiple gallstones. There is trace pericholecystic fluid. There is no intrahepati c biliary ductal dilatation. No common bile duct calculi are visualized the provided images. There is no significant common bile duct dilatation. There is no pancreatic ductal dilatation. IMPRESSION: 1. Significantly limited study. 2. No evidence of pancreatic or biliary ductal dilatation 3. No common bile duct calculi identified 4. Cholelithiasis, and trace pericholecystic fluid Electronically signed by: Silvio Nichole M.D. 02/21/2019 10:11 PM
[2019-02-21] MEDS: PHENYTOIN SODIUM ER 100 MG CAP PO SCH (22:17)
[2019-02-21] MEDS: PIPERACILLIN/TAZOBACTAM 4.5 GM in DEXTROSE 5% 100 ML IV SCH (22:24)
[2019-02-21 22:25] LABS: Hepatitis B Surface Antigen Neg (Neg)
[2019-02-21 22:53] LABS: Hepatitis C IgG 13Yrs+Old_Rflx Neg (Neg)
[2019-02-22 03:18] LABS: Hematocrit (blood only) 44.6 % (42-52); Mean Corpuscular Hgb Conc 33.6 g/dL (32-36); Mean Corpuscular Volume 92.7 fL (80-100); Mean Platelet Volume 9.2 fL (7.4-10.4); Platelet Count 211 K/uL (130-400); RDW Coefficient of Variation 14.3 % (11.5-14.5); RDW Standard Deviation 48.3 fL (36.4-46.3); Red Blood Count 4.81 M/uL (4.7-6.1); White Blood Count 19.17 K/uL (4.8-10.8)
[2019-02-22 03:55] LABS: Alanine Aminotransferase 201 U/L (12-78); Albumin Level 2.7 gm/dl (3.4-5.0); Alkaline Phosphatase 297 U/L (45-117); Aspartate Aminotransferase 196 U/L (15-37); BUN Creatinine Ratio 10.6 (10-20); Bilirubin,Total 4.2 mg/dl (0.2-1); Blood Urea Nitrogen 10 mg/dl (7-18); Calcium 8.1 mg/dl (8.5-10.1); Carbon Dioxide 29 mmol/L (21-32); Chloride 100 mmol/L (98-107); Chol HDL Ratio 4; Cholesterol 171 mg/dl (0-200); Creatinine Clr Calc Pharmacy 157.8 ml/min; Est GFR (Non-African American) 91.4; Glucose 140 mg/dl (70-99); HDL Cholesterol 44 mg/dl; LDL Cholesterol Calculated 97 mg/dl; Magnesium 1.6 mg/dl (1.8-2.4); Potassium 4.2 mmol/L (3.5-5.1); Sodium 134 mmol/L (136-145); Total Protein 6.8 gm/dl (6.4-8.2); Triglycerides 148 mg/dl (0-150); Troponin I < 0.015 ng/ml (0-0.045); VLDL Cholesterol 30 mg/dl
[2019-02-22 03:56] LABS: Phosphorus 3.2 mg/dl (2.5-4.9)
[2019-02-22] MEDS: SODIUM CHLORIDE 0.9% 1000ML 1,000 ML IV SCH ×3 (04:14→20:27)
[2019-02-22 06:03] LABS: Estimated Average Glucose 154 mg/dl
[2019-02-22] MEDS: PIPERACILLIN/TAZOBACTAM 4.5 GM in DEXTROSE 5% 100 ML IV SCH ×2 (06:21→14:02)
[2019-02-22] MEDS: PHENYTOIN SODIUM ER 100 MG CAP PO SCH (08:23)
[2019-02-22] MEDS ORDERED: PERFLUTREN LIPID MICROSPHERE (DEFINITY) IV ONE (08:42)
[2019-02-22] MEDS ORDERED: INDOMETHACIN 50 MG SUPP PR SCH (11:00)
--- NOTE | 2019-02-22 11:04 | Gastrointestinal Consultation ---
Date of Consultation February 22, 2019 Assessment & Plan (1) Sepsis: (2) Cholecystitis: (3) Cholangitis: Pt is a 48 y/o male presented w acute onset of R sided abd pain post prandially, nausea, elevated LFTs, sepsis w blood cx growing gram negative bacilli. Abd imaging concerning for cholecystitis, ? choledocholithiasis (+ cholelithiasis, though no biliary or pancreatic duct dilation) w likely cholangitis. - Check UA - Keep NPO - Zosyn IV antibx - Plan for ERCP in OR this afternoon w Dr. Annabel Pendleton; Indomethacin 100mg DC for ERCP premed ordered. I have discussed indication for ERCP, risks vs benefits of procedure w pt and his fiance - Surgery consulted Supervising Physician Co-Signing Physician Notes I saw and evaluated the patient. He presented with abdominal pain and elevated liver enzymes. He did have an MRCP which was negative for evidence of a gallstone however his white blood cell count appears to be increasing despite antibiotics. In addition he does have gram-negative rods sepsis. Given the clinical scenario we are highly concerned about underlying cholangitis. Physical examination Scleral icterus noted Mild right upper quadrant tenderness, obese abdomen Impression: Patient presenting with signs and symptoms highly consistent with acute cholangitis. Given this we will proceed with ERCP this afternoon for emergency decompression of the biliary tree. We discussed the risks of the procedure to include bleeding, infection, perforation, pain, pancreatitis and failed biliary cannulation. Plan Continue broad-spectrum antibiotics ERCP today History of Present Illness Reason for Consultation: Elevated LFT, ? choledocholithiasis Requesting Physician: Dr. Brittney Hilliard Attending Physician: Dr. Annabel Pendleton History of Present Illness Pt is a 48 y/o male w PMHx of seizure disorder on Dilantin (last episode about 1 yr ago); who presented to ED yesterday w c/o RLQ radiating to RUQ abd pain associated w nausea no vomiting around 11a yesterday. He ate 2hrs prior to onset of symptoms. He also had chest tightness and SOB, cardiac workup negative. CXR w/o acute processes. On eval, his labs showed leukocytosis WBC 17K, elevated lactate levels, LFTs are elevated: Tbili 4.2, AST 196, 201, AP 297, Lipase normal at 42. Abdominal imaging w CT abd/pelvis and MRCP showed no signs of biliary or pancreatic dilation, but signs of cholelithiasis w pericholecystic fluid. His blood cx is growing gram negative bacilli. He's on Zosyn IV. Denies ETOH, + smoke and chew tobacco, no illicit drugs. + tattoos, no piercing, denies hx of hepatitis infections. Denies APAP, supplements, new meds/antibiotics. Denies family hx of autoimmune or liver diseases. Allergies Allergy/AdvReac Type Severity Reaction Status Date / Time No Known Allergies Allergy Verified 02/21/19 16:07 Home Medications Home Medications Medication Instructions Recorded Confirmed Type phenytoin sodium extended 400 mg PO BID 09/22/18 02/21/19 History Patient History Medical History Seizure disorder (Chronic) Tobacco abuse (Chronic) Low back pain with left-sided sciatica (Inactive) Surgical History History of ear surgery (Chronic) Family History Mother Diabetes Hypertension Sister Diabetes Hypertension Social History Preferred Language: Sinhala Communication Ability: Effective Visual Impairment: No Limitations Hearing Ability: Normal Hand Picker Required: No Beliefs That Will Affect Care: None marital status: Engaged marital status details: Fiance Current Living Situation: Significant Other Other Information That Helps Us Care for You: No Feels Safe at Home: Yes Safety Concerns: Feels Safe At This Time Smoking Status: Current every day smoker Tobacco Type: cigarettes Cigarettes Per Day: 10 Do You Dip or Chew Tobacco: Yes (1 can/week) Tobacco Cessation Education Requested by Patient: No Hx Alcohol Use: No Hx Substance Use: No Review of Systems Review of Systems: All systems reviewed & are unremarkable except as noted in HPI & below Physical Exam Constitutional: WD/WN, vitals as above + morbidly obese, well groomed, cooperative and comfortable Eyes: PERRL, conjunctivae normal, anicteric sclerae ENMT: external ear and nose normal, oropharynx normal Respiratory: normal respiratory effort, lungs clear to auscultation Cardiovascular: RRR, no murmur, no edema Gastrointestinal (Abdomen): normal bowel sounds, soft, nontender, no hepatosplenomegaly Skin: no rashes, warm and dry no jaundice Neurologic: Motor/Sensory: no asterixis Psychiatric: A+Ox3, euthymic affect Lymphatic: no lymphedema Results & Data Vital Signs (Past 12 Hours) Vital Signs Laboratory Results - last 72 hr 02/21/19 02/21/19 02/21/19 15:57 15:57 15:57 WBC 13.97 H RBC 5.48 Hgb 17.1 Hct 52.0 MCV 94.9 MCH 31.2 MCHC 32.9 RDW Std Deviation 49.1 H RDW Coeff of Nav 14.0 Plt Count 213 MPV 9.5 Immature Gran % (Auto) 0.3 Neut % (Auto) 96.3 Lymph % (Auto) 2.5 [place] % (Auto) 0.7 Eos % (Auto) 0.1 Baso % (Auto) 0.1 Immature Gran # (Auto) 0.04 H Neut # (Auto) 13.46 H Lymph # (Auto) 0.35 L [place] # (Auto) 0.10 L Eos # (Auto) 0.01 Baso # (Auto) 0.01 PT 9.9 INR 1.0 APTT 23.1 PTT Ratio 0.9 Sodium Potassium Chloride Carbon Dioxide Anion Gap BUN Creatinine Est Cr Clr Drug Dosing Est GFR ( Amer) Est GFR (Non-Af Amer) BUN/Creatinine Ratio Glucose Estimat Average Glucose Hemoglobin A1c Lactate Calcium Phosphorus Magnesium Total Bilirubin Direct Bilirubin AST ALT Alkaline Phosphatase Troponin I NT-Pro-B Natriuret Pep Total Protein Albumin Globulin Albumin/Globulin Ratio Triglycerides Cholesterol LDL Cholesterol, Calc VLDL Cholesterol, Calc HDL Cholesterol Cholesterol/HDL Ratio Lipase Procalcitonin Specimen Hemolysis Phenytoin 5.3 L Hep Bs Antigen Hepatitis C Antibody 02/21/19 02/21/19 02/21/19 15:57 15:57 19:06 WBC RBC Hgb Hct MCV MCH MCHC RDW Std Deviation RDW Coeff of Nav Plt Count MPV Immature Gran % (Auto) Neut % (Auto) Lymph % (Auto) [place] % (Auto) Eos % (Auto) Baso % (Auto) Immature Gran # (Auto) Neut # (Auto) Lymph # (Auto) [place] # (Auto) Eos # (Auto) Baso # (Auto) PT INR APTT PTT Ratio Sodium 136 Potassium 4.2 Chloride 99 Carbon Dioxide 31 Anion Gap 6.0 BUN 9 Creatinine 0.87 Est Cr Clr Drug Dosing 173.4 Est GFR ( Amer) 119.1 Est GFR (Non-Af Amer) 102.8 BUN/Creatinine Ratio 10.5 Glucose 150 H Estimat Average Glucose Hemoglobin A1c Lactate 2.5 H* 2.4 H* Calcium 9.1 Phosphorus 2.0 L Magnesium 1.7 L Total Bilirubin 1.5 H Direct Bilirubin 1.0 H AST 393 H ALT 315 H Alkaline Phosphatase 420 H Troponin I < 0.015 NT-Pro-B Natriuret Pep 9 Total Protein 8.7 H Albumin 3.5 Globulin 5.2 H Albumin/Globulin Ratio 0.7 L Triglycerides Cholesterol LDL Cholesterol, Calc VLDL Cholesterol, Calc HDL Cholesterol Cholesterol/HDL Ratio Lipase 82 Procalcitonin Specimen Hemolysis Phenytoin Hep Bs Antigen Hepatitis C Antibody 02/21/19 02/21/19 02/21/19 21:09 21:09 21:09 WBC RBC Hgb Hct MCV MCH MCHC RDW Std Deviation RDW Coeff of Nav Plt Count MPV Immature Gran % (Auto) Neut % (Auto) Lymph % (Auto) [place] % (Auto) Eos % (Auto) Baso % (Auto) Immature Gran # (Auto) Neut # (Auto) Lymph # (Auto) [place] # (Auto) Eos # (Auto) Baso # (Auto) PT INR APTT PTT Ratio Sodium Potassium Chloride Carbon Dioxide Anion Gap BUN Creatinine Est Cr Clr Drug Dosing Est GFR ( Amer) Est GFR (Non-Af Amer) BUN/Creatinine Ratio Glucose Estimat Average Glucose Hemoglobin A1c Lactate 3.3 H* Calcium Phosphorus Magnesium Total Bilirubin Direct Bilirubin AST ALT Alkaline Phosphatase Troponin I < 0.015 NT-Pro-B Natriuret Pep Total Protein Albumin Globulin Albumin/Globulin Ratio Triglycerides Cholesterol LDL Cholesterol, Calc VLDL Cholesterol, Calc HDL Cholesterol Cholesterol/HDL Ratio Lipase Procalcitonin Specimen Hemolysis Phenytoin Hep Bs Antigen Neg Hepatitis C Antibody Neg 02/22/19 02/22/19 02/22/19 03:11 03:11 03:11 WBC 19.17 H RBC 4.81 Hgb 15.0 Hct 44.6 MCV 92.7 MCH 31.2 MCHC 33.6 RDW Std Deviation 48.3 H RDW Coeff of Nav 14.3 Plt Count 211 MPV 9.2 Immature Gran % (Auto) Neut % (Auto) Lymph % (Auto) [place] % (Auto) Eos % (Auto) Baso % (Auto) Immature Gran # (Auto) Neut # (Auto) Lymph # (Auto) [place] # (Auto) Eos # (Auto) Baso # (Auto) PT INR APTT PTT Ratio Sodium 134 L Potassium 4.2 Chloride 100 Carbon Dioxide 29 Anion Gap 5.0 BUN 10 Creatinine 0.98 Est Cr Clr Drug Dosing 157.8 Est GFR ( Amer) 106.0 Est GFR (Non-Af Amer) 91.4 BUN/Creatinine Ratio 10.6 Glucose 140 H Estimat Average Glucose 154 Hemoglobin A1c 7.0 H Lactate Calcium 8.1 L Phosphorus 3.2 D Magnesium 1.6 L Total Bilirubin 4.2 H D Direct Bilirubin AST 196 H ALT 201 H Alkaline Phosphatase 297 H Troponin I < 0.015 NT-Pro-B Natriuret Pep Total Protein 6.8 D Albumin 2.7 L Globulin Albumin/Globulin Ratio Triglycerides 148 Cholesterol 171 LDL Cholesterol, Calc 97 VLDL Cholesterol, Calc 30 HDL Cholesterol 44 Cholesterol/HDL Ratio 4 Lipase 41 L Procalcitonin Specimen Hemolysis Phenytoin Hep Bs Antigen Hepatitis C Antibody 02/22/19 02/22/19 09:42 09:42 WBC RBC Hgb Hct MCV MCH MCHC RDW Std Deviation RDW Coeff of Nav Plt Count MPV Immature Gran % (Auto) Neut % (Auto) Lymph % (Auto) [place] % (Auto) Eos % (Auto) Baso % (Auto) Immature Gran # (Auto) Neut # (Auto) Lymph # (Auto) [place] # (Auto) Eos # (Auto) Baso # (Auto) PT INR APTT PTT Ratio Sodium Potassium Chloride Carbon Dioxide Anion Gap BUN Creatinine Est Cr Clr Drug Dosing Est GFR ( Amer) Est GFR (Non-Af Amer) BUN/Creatinine Ratio Glucose Estimat Average Glucose Hemoglobin A1c Lactate 1.3 Calcium Phosphorus Magnesium Total Bilirubin Direct Bilirubin AST ALT Alkaline Phosphatase Troponin I NT-Pro-B Natriuret Pep Total Protein Albumin Globulin Albumin/Globulin Ratio Triglycerides Cholesterol LDL Cholesterol, Calc VLDL Cholesterol, Calc HDL Cholesterol Cholesterol/HDL Ratio Lipase Procalcitonin 15.58 H Specimen Hemolysis Phenytoin Hep Bs Antigen Hepatitis C Antibody Temp Pulse Resp BP Pulse Ox 02/22/19 07:27 36.7 C 81 20 145/80 H 91 02/22/19 04:36 37.1 C 93 H 20 134/77 93 02/21/19 23:51 36.8 C 97 H 20 130/66 91
--- NOTE | 2019-02-22 12:53 | Anesthesiology Consultation ---
Date of Service February 22, 2019 Assessment & Plan Chart Review Chart Review: entry rep initiated History Surgery Operation Date: 02/22/19 08:50 Proposed Procedures p Endoscopic Retrograde Cholangiopancreatogram - Annabel Pendleton Height/Weight Height: 5 ft 10 in Weight: 191.1 kg Allergies Allergy/AdvReac Type Severity Reaction Status Date / Time No Known Allergies Allergy Verified 02/21/19 16:07 Medications Home Medications Medication Instructions Recorded Confirmed Last Taken phenytoin sodium extended 400 mg PO BID 09/22/18 02/21/19 02/21/19 Active Medications Generic Name Dose Route Start Last Admin Trade Name Freq PRN Reason Stop Dose Admin Sodium Chloride 1,000 mls @ 125 mls/hr 02/21/19 20:21 02/22/19 12:09 Nss 1000ml IV 03/23/19 20:20 125 mls/hr .Q8H DANDRE Administration Piperacillin Sod/Tazobactam 120 mls @ 30 mls/hr 02/21/19 22:00 02/22/19 09:57 Sod 4.5 gm/ Dextrose IV 03/03/19 21:59 Infused Q8H DANDRE Infusion Protocol Phenytoin Sodium 400 mg 02/21/19 21:00 02/22/19 08:23 Dilantin Er PO 03/23/19 20:59 400 mg BID DANDRE Administration Past Medical History Medical History Seizure disorder (Chronic) Tobacco abuse (Chronic) Low back pain with left-sided sciatica (Inactive) Past Family History Family History Mother Diabetes Hypertension Sister Diabetes Hypertension Past Surgical History Surgical History History of ear surgery (Chronic) Social History Smoking Status: Current every day smoker tobacco type: cigarettes Smoking cigarettes per day: 10 Do You Dip or Chew Tobacco: Yes (1 can/week) Hx Alcohol Use: No Hx Substance Use: No Physical Exam Vital Signs Last Vital Signs Temp 98.4 F 02/22/19 11:25 Pulse 80 02/22/19 11:25 Resp 16 02/22/19 11:25 BP 131/81 02/22/19 11:25 Pulse Ox 93 02/22/19 11:25 Testing Laboratory Results 02/22/19 03:11 02/22/19 03:11 02/21/19 02/22/19 15:57 03:11 PT 9.9 INR 1.0 APTT 23.1 Hemoglobin A1c 7.0 H 02/21/19 15:57 Anaerobic Blood Culture - Preliminary Blood Gram negative bacilli 02/21/19 17:34 Aerobic Blood Culture - Preliminary Blood Gram negative bacilli Electrocardiogram Date: 02/22/19 Findings: + NSR @ (88 bpm) Echocardiogram Date: 02/22/19 EF: 60% Poorly visualized LV with grossly normal LV systolic function Other Testing CT Chest 02/21/19 IMPRESSION: 1. No evidence for pulmonary embolus involving the central or first order pulmonary arterial vessels. 2. Limited evaluation of the peripheral third order vessels due to body habitus consideration. 3. Mid and upper lungs are considered clear. 4. Scattered bibasilar atelectatic change.
--- NOTE | 2019-02-22 14:53 | Surgery Consultation ---
Date of Consultation February 22, 2019 Assessment & Plan (1) Cholangitis: Cholelithiasis with only trace pericholecystic fluid on MRCP, will likely need eventual cholecystectomy but will await results of ERCP this afternoon. Cholecystectomy can be done in the next several days if not improving or can be scheduled in the next few weeks as an outpatient. Supervising Physician Co-Signing Physician Notes Pnt S&E, agree with above. 48 y/o male with BMI 60 presented with epigastric pain and nausea. Bilirubin elevated, MRCP with cholelithiasis but no filling defect. GI plan for ERCP today. At this point we will see results of ERCP, possible cholecystectomy as outpatient or during this hospital stay. History of Present Illness Attending Physician: Brittney Hilliard MD History of Present Illness 48 y/o male with epigastric pain yesterday that began after eating waffles. Pain lasted for several hours, today pain has resolved. No previous pain, nausea, or fatty food intolerance. No previous surgery. GI has seen for LFT elevations, scheduled for ERCP this afternoon. MRCP did not show filling defect or ductal dilation but clinical picture is consistent with cholangitis. Allergies Allergy/AdvReac Type Severity Reaction Status Date / Time No Known Allergies Allergy Verified 02/21/19 16:07 Home Medications Home Medications Medication Instructions Recorded Confirmed Type phenytoin sodium extended 400 mg PO BID 09/22/18 02/21/19 History Patient History Medical History Seizure disorder (Chronic) Tobacco abuse (Chronic) Low back pain with left-sided sciatica (Inactive) Surgical History History of ear surgery (Chronic) Family History Mother Diabetes Hypertension Sister Diabetes Hypertension Social History Preferred Language: Tajik Communication Ability: Effective Visual Impairment: No Limitations Hearing Ability: Normal Certified [employer] Required: No Beliefs That Will Affect Care: None marital status: Engaged marital status details: Fiance Current Living Situation: Significant Other Other Information That Helps Us Care for You: No Feels Safe at Home: Yes Safety Concerns: Feels Safe At This Time Smoking Status: Current every day smoker Tobacco Type: cigarettes Cigarettes Per Day: 10 Do You Dip or Chew Tobacco: Yes (1 can/week) Tobacco Cessation Education Requested by Patient: No Hx Alcohol Use: No Hx Substance Use: No Review of Systems Constitutional: + malaise; no fever and no chills Gastrointestinal: + abdominal pain and + nausea Physical Exam Constitutional: no acute distress Respiratory: normal respiratory effort Cardiovascular: Rate/Rhythm: regular rate Gastrointestinal (Abdomen): Inspection/Auscultation: abdomen not distended Percussion/Palpation: abdomen soft; abdomen nontender and no guarding Results & Data Vital Signs (Past 12 Hours) Vital Signs Temp Pulse Resp BP Pulse Ox 02/22/19 11:25 36.9 C 80 16 131/81 93 02/22/19 07:27 36.7 C 81 20 145/80 H 91 02/22/19 04:36 37.1 C 93 H 20 134/77 93
[2019-02-22] MEDS ORDERED: fentaNYL citrate 100 MCG/2 ML VIAL ONE (15:40)
[2019-02-22] MEDS ORDERED: MIDAZOLAM HCL 1 MG/ML 2ML VIAL ONE (15:40)
[2019-02-22] MEDS ORDERED: INDOMETHACIN 50 MG SUPP PR STA (16:09)
[2019-02-22] MEDS ORDERED: ALBUT/IPRATROP 3MG/0.5MG NEB 3 ML VIAL NEB STA (16:18)
--- NOTE | 2019-02-22 16:21 | History & Physical Bridge Note ---
Date of Service February 22, 2019 History & Physical Bridge Note I have examined the patient, reviewed the History & Physical and in the interval since the performance of the History & Physical I have noted the following changes of clinical significance: no changes noted. The patient has worsening white blood cell count, elevated liver enzymes and bilirubin in addition to gram-negative rods in his blood. Given the clinical picture we are concerned about underlying cholangitis and will proceed with ERCP today. We have discussed the risks to include bleeding, infection, perforation, pancreatitis and failed biliary cannulation.
[2019-02-22] MEDS ORDERED: LARYING-O-JET KIT (LTA) ONE (17:00)
[2019-02-22] MEDS ORDERED: SUCCINYLCHOLINE CHLORIDE 20 MG/ML 10 ML VIAL ONE (17:00)
[2019-02-22] MEDS ORDERED: PROPOFOL IV EMULSION 10 MG/ML 20 ML VIAL IV ONE (17:00)
[2019-02-22] MEDS ORDERED: ALBUTEROL HFA INHALER 8.5 GM ONE (17:00)
[2019-02-22] MEDS ORDERED: ONDANSETRON INJ 2 MG/ML 2 ML VIAL ONE (17:00)
[2019-02-22] MEDS ORDERED: LIDOCAINE HCL 2% 2 ML VIAL/AMP(20MG/ML) INFIL ONE (17:00)
[2019-02-22] MEDS ORDERED: ONDANSETRON INJ 2 MG/ML 2 ML VIAL IV PRN (17:03)
[2019-02-22] MEDS ORDERED: ePHEDrine sulfate 50 MG/ML AMP IV PRN (17:03)
[2019-02-22] MEDS ORDERED: ATROPINE SULFATE 0.1 MG/ML 10ML SYR IV PRN (17:03)
[2019-02-22] MEDS ORDERED: LABETALOL HCL IV 5 MG/ML 20ML IV PRN (17:03)
--- NOTE | 2019-02-22 17:49 | Post Operative Brief Note ---
Immediate Post Op Note v1 Date of Surgery February 22, 2019 Pre & Post Diagnosis Operation Date: 02/22/19 08:50 Pre-Op Diagnosis: Cholangitis Post-Op Diagnosis: Cholangitis Procedure Operation Date: 02/22/19 08:50 Actual Procedures p Endoscopic Retrograde Cholangiopancreatogram,sphinterotomy, biliary stent placement and pancreatic stent placement - Annabel Pendleton Surgeon Annabel Pendleton Restrictive Preparation Operator none Estimated Blood Loss 0 Findings See Below (Cholangitis (biliary stent placed), pancreatic stent placeed)
--- NOTE | 2019-02-22 17:59 | GI REPORT ---
Patient Name: Stevenson Wolfe Procedure Date: 02/22/2019 4:47 PM Date of : 1970 Admit Type: Inpatient Age: 48 Gender: Male Attending MD: Annabel Pendleton DO Procedure: ERCP Providers: Annabel Pendleton DO Referring MD: Tom Rizo Indications: Suspected ascending cholangitis Medicines: General Anesthesia Complications: No immediate complications. Estimated blood loss: Minimal. Estimated Blood Loss: Estimated blood loss was minimal. Procedure: Pre-Anesthesia Assessment: - Prior to the procedure, a History and Physical was performed, and patient medications, allergies and sensitivities were reviewed. The patient's tolerance of previous anesthesia was reviewed. - The risks and benefits of the procedure and the sedation options and risks were discussed with the patient. All questions were answered and informed consent was obtained. - Patient identification and proposed procedure were verified prior to the procedure by the physician, the nurse and the blind hanger. The procedure was verified in the procedure room. - Pre-procedure physical examination revealed no contraindications to sedation. - ASA Grade Assessment: IV - A patient with severe systemic disease that is a constant threat to life. - After reviewing the risks and benefits, the patient was deemed in satisfactory condition to undergo the procedure. - The anesthesia plan was to use general anesthesia. - Immediately prior to administration of medications, the patient was re-assessed for adequacy to receive sedatives. - The heart rate, respiratory rate, oxygen saturations, blood pressure, adequacy of pulmonary ventilation, and response to care were monitored throughout the procedure. - The physical status of the patient was re-assessed after the procedure. After obtaining informed consent, the scope was passed under direct vision. Throughout the procedure, the patient's blood pressure, pulse, and oxygen saturations were monitored continuously. The SCOPE was introduced through the mouth, and advanced to the duodenum and used to inject contrast into the bile duct and ventral pancreatic duct. The patient tolerated the procedure well. The ERCP was technically difficult and complex due to challenging cannulation because of intradiverticular papilla, challenging cannulation because of papillary stenosis and the patient's body habitus. Successful completion of the procedure was aided by performing the maneuvers documented (below) in this report. The patient tolerated the procedure well. Findings: The inspector plating film was normal. The esophagus was successfully intubated under direct vision without detailed examination of the pharynx, larynx, and associated structures, and upper GI tract. The upper GI tract was grossly normal. The major papilla was located entirely within a diverticulum. The major papilla was congested. The ventral pancreatic duct was inadvertently cannulated with the short-nosed traction sphincterotome and 0.025 in acrobat 2 guidewire without any complications. due to difficulty of positoning we placed one 5 Fr by 5 cm pancreatic stent with a 3/4 external pigtail and no internal flaps was placed 5 cm into the ventral pancreatic duct. Clear fluid flowed through the stent. The stent was in good position. Due to continued difficulty with the large diverticulum we used 2 AirDroids Instict clips to help bring the ampulla closer to the edge of the diverticulum. The bile duct was then deeply cannulated with the short-nosed traction sphincterotome (Rx 39) and 0.025 in Dream guidewire. Contrast was injected. I personally interpreted the bile duct images. Contrast extended to the entire biliary tree. The biliary orifice was stenotic. This appeared benign. The lower third of the main bile duct contained filling defect(s) thought to be sludge or stone material. Biliary sphincterotomy was made with a monofilament Dreamtome sphincterotome using ERBE electrocautery. There was no post-sphincterotomy bleeding, pus immediatly came out of the duct. One 10 Fr by 8 cm biliary stent with a single external flap and a single internal flap was placed 8 cm into the common bile duct. Pus flowed through the stent. The stent was in good position. Indomethacin 100 mg was given via suppository to decrease the risk of post-ERCP pancreatitis (PEP). The endoscope was withdrawn from the patient. Impression: - The major papilla was located entirely within a diverticulum. - The major papilla appeared congested. - Biliary papillary stenosis, benign. - The examination was suspicious for sludge. - A biliary sphincterotomy was performed witgh passage of pus consistent with cholangitis. - One biliary stent was placed into the common bile duct. - One pancreatic stent was placed into the ventral pancreatic duct. - Indomethacin given to decrease risk of post-ERCP pancreatitis. Recommendation: - Avoid aspirin and nonsteroidal anti-inflammatory medicines for 1 week. - Clear liquid diet today. - Use broad spectrum antibiotics for 10 days. - Refer to a surgeon to deermine timing of cholecystectomy. - Repeat ERCP in 8 weeks to remove stent. Annabel Pendleton D.O. Annabel Pendleton, 02/22/2019 5:58:46 PM This report has been signed electronically. Note Initiated On: 02/22/2019 4:47 PM Number of Addenda: 0 I attest to the content of the Intraoperative Record and orders documented therein, exceptions below {[id number]}
--- NOTE | 2019-02-22 18:24 | Anesthesiology Progress Note ---
Date of Service February 22, 2019 Anesthesia Post Procedure Vital Signs Vital Signs: Temp Pulse Pulse Pulse Resp BP BP 02/22/19 18:05 105 H 22 152/85 H 02/22/19 17:59 36.6 C 102 H 25 H 131/82 02/22/19 17:00 83 02/22/19 16:09 87 18 02/22/19 16:06 37.0 C 94 H 16 105/58 L 02/22/19 15:15 37.1 C 89 20 130/83 02/22/19 11:25 36.9 C 80 16 131/81 02/22/19 07:27 36.7 C 81 20 145/80 H 02/22/19 04:36 37.1 C 93 H 20 134/77 02/21/19 23:51 36.8 C 97 H 20 130/66 02/21/19 20:46 111 H 02/21/19 19:45 36.9 C 114 H 24 112/61 02/21/19 19:21 109 H 23 136/63 Pulse Ox 02/22/19 18:05 93 02/22/19 17:59 93 02/22/19 17:00 02/22/19 16:09 94 02/22/19 16:06 91 02/22/19 15:15 91 02/22/19 11:25 93 02/22/19 07:27 91 02/22/19 04:36 93 02/21/19 23:51 91 02/21/19 20:46 02/21/19 19:45 91 02/21/19 19:21 90 Pain Intensity Chest: Pain Intensity: 0 Abdomen: Pain Intensity: 0 Transfer of Care Handoff Completed per policy Notes Mental Status: alert / awake / arousable and participated in evaluation Patient Amnestic to Procedure: Yes Nausea / Vomiting: adequately controlled Pain: adequately controlled Airway Patency, RR, SpO2: stable & adequate BP & HR: stable & adequate Hydration State: stable & adequate Anesthetic Complications: no major complications apparent and Pt Satisfied with anesthetic care
--- NOTE | 2019-02-22 19:23 | Fluoroscopy Report ---
[place] ERCP biliary ductal CLINICAL HISTORY: for ercp COMPARISON STUDY: None. FLUOROSCOPY TIME: 1 minute and 46 seconds.. FINDINGS: 4 fluoroscopic spot images of the right upper quadrant demonstrate cannulation of the commo n bile duct with injection of contrast and a balloon sweep. The visualized common bile duct appears p atent. IMPRESSION: Fluoroscopy provided ERCP. Electronically signed by: Naveed Alfonso M.D. 02/22/2019 7:21 PM
--- NOTE | 2019-02-22 19:27 | Hospitalist Progress Note ---
Date of Service February 22, 2019 Assessment & Plan (1) Sepsis: Secondary to acute cholecystitis/choledocholithiasis/cholangitis Patient presenting with reports of abdominal pain, chest pain, shortness of breath Ms. criteria for sepsis on admission, hypothermic 35.4, WBC 13.9K, tachycardic, tachypnea, lactic acid 2.5; BP stable Status post ERCP with sphincterotomy-appreciate input from GI Continue IV antibiotics Zosyn, IV fluids Surgery consulted (2) Transaminitis: Due to cholecystitis/choledocholithiasis/cholangitis - -CT ABD/pelvis showing equivocal cholelithiasis -suspect source as It is post ERCP: Patient is continued with IV Zosyn, IV fluids, repeat chemistry liver panel in a.m. GI following (3) Chest pain: (4) Acute electrocardiogram changes: Possible secondary to above: Cholangitis, acute cholecystitis Resented with abdominal pain/right upper chest pain, GI in nature Evidence of ACS -CTA chest negative for PE -EKG shows new T wave inversions in leads II,III, aVF, V4 through V6 Possible stress-induced, repeat EKG ordered -Currently chest pain-free -Serial troponin negative, echo shows no wall motion abnormality and, normal LV function (5) Hypophosphatemia: Due to nausea vomiting, poor p.o. intake, corrected, follow light (6) Hypomagnesemia: -Replace, follow levels (7) Seizure disorder: -Stable, continue Dilantin Changed to IV, ordered for Dilantin level in a.m. (8) DVT prophylaxis: -SCDs CODE STATUS: Full code Disposition: Expected to be discharged home when medically stable Plan of care updated to patient, and patient's present at bedside Subjective Patient underwent emergent ERCP, Status post sphincterotomy Feeling much better postoperatively, minimum right upper quadrant pain, no nausea, Remains afebrile Denies of any nausea vomiting, Continue broad-spectrum antibiotic with IV Zosyn, IV fluids, monitoring telemetry Surgery evaluation requested for consideration of cholecystectomy Physical Exam Constitutional: WD/WN, vitals as above + morbidly obese, + obese, well groomed, cooperative and comfortable; no acute distress Eyes: PERRL, conjunctivae normal, anicteric sclerae ENMT: external ear and nose normal, oropharynx normal Respiratory: normal respiratory effort, lungs clear to auscultation normal respiratory effort; no respiratory distress Auscultation: + diminished lung sounds Cardiovascular: RRR, no murmur, no edema Rate/Rhythm: regular rate and regular rhythm Vessels: normal peripheral pulses Extremities: + edema (+1 BLE) Gastrointestinal (Abdomen): normal bowel sounds, soft, nontender, no hepatosplenomegaly Inspection/Auscultation: abdomen not distended Percussion/Palpation: abdomen soft; abdomen nontender and no guarding Musculoskeletal: no cyanosis or clubbing, extremities motor strength 5/5 Skin: no rashes, warm and dry no jaundice Neurologic: PERRL, EOMI, accommodation nl, no face palsy, no dysarthria Motor/Sensory: no asterixis Psychiatric: A+Ox3, euthymic affect Lymphatic: no lymphedema Results & Data Vital Signs (Past 12 Hours) Vital Signs Temp Pulse Pulse Pulse Resp BP Pulse Ox 02/22/19 18:25 108 H 21 155/98 H 92 02/22/19 18:15 105 H 15 125/84 96 02/22/19 18:05 105 H 22 152/85 H 93 02/22/19 17:59 36.6 C 102 H 25 H 131/82 93 02/22/19 17:00 83 02/22/19 16:09 87 18 94 02/22/19 16:06 37.0 C 94 H 16 105/58 L 91 02/22/19 15:15 37.1 C 89 20 130/83 91 02/22/19 11:25 36.9 C 80 16 131/81 93 02/22/19 07:27 36.7 C 81 20 145/80 H 91
[2019-02-22] MEDS ORDERED: 0.9 % SODIUM CHLORIDE FLUSH 20 ML in SYRINGE 0 ML IV SCH (21:00)
[2019-02-22] MEDS: FAMOTIDINE 20 MG in SYRINGE 3 ML IV SCH (21:09)
[2019-02-22] MEDS: SODIUM CHLORIDE 0.9% IV SCH (21:20)
[2019-02-22] MEDS: PHENYTOIN IV SCH (21:20)
[2019-02-23] MEDS: PIPERACILLIN/TAZOBACTAM 4.5 GM in DEXTROSE 5% 100 ML IV SCH ×3 (03:47→19:42)
[2019-02-23] MEDS: SODIUM CHLORIDE 0.9% 1000ML 1,000 ML IV SCH ×3 (03:48→19:42)
[2019-02-23 06:03] LABS: Basophils # (auto) 0.01 K/uL (0-0.2); Basophils % (auto) 0.1 %; Eosinophils # (auto) 0.08 K/uL (0-0.5); Hematocrit (blood only) 46.5 % (42-52); Hemoglobin 14.8 g/dL (14.0-18.0); Immature Granulocytes # (auto) 0.03 K/uL (0.00-0.02); Immature Granulocytes % (auto) 0.4 %; Lymphocytes # (auto) 0.29 K/uL (1.2-3.4); Lymphocytes % (auto) 3.8 %; Mean Corpuscular Hgb Conc 31.8 g/dL (32-36); Mean Corpuscular Volume 96.9 fL (80-100); Mean Platelet Volume 9.4 fL (7.4-10.4); Monocytes % (auto) 6.5 %; Neutrophils # (auto) 6.78 K/uL (1.4-6.5); Neutrophils % (auto) 88.2 %; Platelet Count 178 K/uL (130-400); RDW Coefficient of Variation 14.6 % (11.5-14.5); RDW Standard Deviation 51.9 fL (36.4-46.3); White Blood Count 7.69 K/uL (4.8-10.8)
[2019-02-23 06:24] LABS: Albumin Level 2.8 gm/dl (3.4-5.0); BUN Creatinine Ratio 12.6 (10-20); Calcium 8.2 mg/dl (8.5-10.1); Creatinine Clr Calc Pharmacy 184.9 ml/min; Est GFR (African American) 120.8; Est GFR (Non-African American) 104.3; Potassium 4.1 mmol/L (3.5-5.1)
[2019-02-23 06:35] LABS: Albumin Globulin Ratio 0.6 (0.9-2); Bilirubin Direct 3.7 mg/dl (0-0.2); Bilirubin,Total 4.7 mg/dl (0.2-1); Globulin 4.8 gm/dl (2.5-4.0); Total Protein 7.6 gm/dl (6.4-8.2)
[2019-02-23] MEDS: FAMOTIDINE 20 MG in SYRINGE 3 ML IV SCH ×2 (08:18→21:05)
[2019-02-23] MEDS: PHENYTOIN IV SCH (08:33)
[2019-02-23] MEDS: SODIUM CHLORIDE 0.9% IV SCH (08:33)
--- NOTE | 2019-02-23 09:44 | Surgery Progress Note ---
Date of Service February 23, 2019 Assessment & Plan (1) Cholangitis: s/p ERCP WBC normalized if tolerates diet, will see in clinic on Tuesday to schedule lap wood low fat diet, other d/c instructions per GI and medicine Subjective feeling better this AM Physical Exam Gastrointestinal (Abdomen): Percussion/Palpation: abdomen soft; abdomen n ontender Results & Data Vital Signs (Past 12 Hours) Vital Signs Temp Pulse Pulse Resp BP Pulse Ox 02/23/19 06:56 37.3 C 69 20 112/71 95 02/23/19 04:20 36.8 C 83 18 122/84 96 02/23/19 03:53 80 02/22/19 23:10 36.7 C 78 18 125/82 96
--- NOTE | 2019-02-23 10:03 | Gastroenterology Progress Note ---
Date of Service February 23, 2019 Assessment & Plan (1) Sepsis: (2) Cholecystitis: (3) Cholangitis: Pt is a 48 y/o male presented w acute onset of R sided abd pain post prandially, nausea, elevated LFTs, sepsis w blood cx growing gram negative bacilli. Abd imaging concerning for cholecystitis, ? choledocholithiasis (+ cholelithiasis, though no biliary or pancreatic duct dilation) w likely cholangitis. Now S/P ERCP w/ evidence of sludge, cholangitis. Stents placed. This AM notes complete resolution of his GI symptoms but he is more tired, fatigued then normal. He is oriented x 3 and providing accurate history - Repeat LFTs tomorrow - No NSAIDs x 1 week - No GI contraindication to clear liquid diet then advancing to low fat as tolerated - Use broad spectrum antibiotics for 10 days. - Refer to a surgeon to determine timing of cholecystectomy. - Repeat ERCP in 8 weeks to remove stent. Thank you for allowing us to participate in the care of this patient. Please call with any acute changes, questions or concerns. Please see addendum below with additional recommendation from my supervising physician. Supervising Physician Co-Signing Physician Notes Attending attestation I have seen, examined this patient, and agree with the findings and above by our mid-level provider DAVON Kruger. -Abdomen soft/nt/nd -Advance diet -Cholecystectomy -Labs likely to lag behind -IV abx and then transition to oral when taking PO -Call with questions Subjective Pt was seen and evaluated, chart reviewed. Family at bedside. Tired this AM but feels well. Offers no complaints. Abd pain complete resolved. No nausea, vomiting. Is hungry. No fever, chills, CP, SOB. Does not he had some dark urine this AM. Moves bowels which were semi-formed, non bloody. No black stools. ERCP: he major papilla was located entirely within a diverticulum. The major papilla appeared congested.Biliary papillary stenosis, benign. The examination was suspicious for sludge.A biliary sphincterotomy was performed witgh passage of pus consistent with cholangitis.One biliary stent was placed into the common bile duct. One pancreatic stent was placed into the ventral pancreatic duct.Indomethacin given to decrease risk of post-ERCP pancreatitis. Review of Systems Constitutional: + fatigue; no fever and no chills Respiratory: no cough, no dyspnea, no pain on inspiration and no wheezing Cardiovascular: no chest pain, no radiating jaw, neck or arm pain, no dyspnea on exertion and no palpitations Gastrointestinal: no abdominal pain, no early satiety, no nausea, no vomiting and no hematemesis Physical Exam Constitutional: WD/WN, vitals as above + morbidly obese Respiratory: normal respiratory effort, lungs clear to auscultation Cardiovascular: RRR, no murmur, no edema Gastrointestinal (Abdomen): Inspection/Auscultation: normal bowel sounds Percussion/Palpation: abdomen soft; abdomen nontender, no guarding and abdomen not rigid Skin: no rashes, warm and dry Results & Data Vital Signs (Past 12 Hours) Vital Signs Temp Pulse Pulse Resp BP Pulse Ox 02/23/19 06:56 37.3 C 69 20 112/71 95 02/23/19 04:20 36.8 C 83 18 122/84 96 02/23/19 03:53 80 02/22/19 23:10 36.7 C 78 18 125/82 96 Laboratory Results 02/23/19 02/23/19 02/23/19 Range/Units 05:29 05:29 05:29 WBC 7.69 (4.8-10.8) K/uL RBC 4.80 (4.7-6.1) M/uL Hgb 14.8 (14.0-18.0) g/dL Hct 46.5 (42-52) % MCV 96.9 (80-100) fL MCH 30.8 (25-34) pg MCHC 31.8 L (32-36) g/dL RDW Std Deviation 51.9 H (36.4-46.3) fL RDW Coeff of Nav 14.6 H (11.5-14.5) % Plt Count 178 (130-400) K/uL MPV 9.4 (7.4-10.4) fL Immature Gran % (Auto) 0.4 % Neut % (Auto) 88.2 % Lymph % (Auto) 3.8 % [place] % (Auto) 6.5 % Eos % (Auto) 1.0 % Baso % (Auto) 0.1 % Immature Gran # (Auto) 0.03 H (0.00-0.02) K/uL Neut # (Auto) 6.78 H (1.4-6.5) K/uL Lymph # (Auto) 0.29 L (1.2-3.4) K/uL [place] # (Auto) 0.50 (0.11-0.59) K/uL Eos # (Auto) 0.08 (0-0.5) K/uL Baso # (Auto) 0.01 (0-0.2) K/uL Sodium 134 L (136-145) mmol/L Potassium 4.1 (3.5-5.1) mmol/L Chloride 100 (98-107) mmol/L Carbon Dioxide 30 (21-32) mmol/L Anion Gap 4.0 (3-11) BUN 11 (7-18) mg/dl Creatinine 0.84 (0.6-1.4) mg/dl Est Cr Clr Drug Dosing 184.9 ml/min Est GFR ( Amer) 120.8 Est GFR (Non-Af Amer) 104.3 BUN/Creatinine Ratio 12.6 (10-20) Glucose 125 H (70-99) mg/dl Lactate (0.4-2.0) mmol/L Calcium 8.2 L (8.5-10.1) mg/dl Total Bilirubin 4.7 H (0.2-1) mg/dl Direct Bilirubin 3.7 H D (0-0.2) mg/dl AST 104 H (15-37) U/L ALT 150 H (12-78) U/L Alkaline Phosphatase 318 H (45-117) U/L Total Protein 7.6 (6.4-8.2) gm/dl Albumin 2.8 L (3.4-5.0) gm/dl Globulin 4.8 H (2.5-4.0) gm/dl Albumin/Globulin Ratio 0.6 L (0.9-2) Lipase 230 (73-393) U/L Procalcitonin (0-0.5) ng/ml Phenytoin 5.6 L (10-20) mcg/ml Hepatitis A IgM Ab (NON-REACTIVE) Hep B Core IgM Ab (NON-REACTIVE) 02/22/19 02/22/19 02/21/19 Range/Units 09:42 09:42 21:09 WBC (4.8-10.8) K/uL RBC (4.7-6.1) M/uL Hgb (14.0-18.0) g/dL Hct (42-52) % MCV (80-100) fL MCH (25-34) pg MCHC (32-36) g/dL RDW Std Deviation (36.4-46.3) fL RDW Coeff of Nav (11.5-14.5) % Plt Count (130-400) K/uL MPV (7.4-10.4) fL Immature Gran % (Auto) % Neut % (Auto) % Lymph % (Auto) % [place] % (Auto) % Eos % (Auto) % Baso % (Auto) % Immature Gran # (Auto) (0.00-0.02) K/uL Neut # (Auto) (1.4-6.5) K/uL Lymph # (Auto) (1.2-3.4) K/uL [place] # (Auto) (0.11-0.59) K/uL Eos # (Auto) (0-0.5) K/uL Baso # (Auto) (0-0.2) K/uL Sodium (136-145) mmol/L Potassium (3.5-5.1) mmol/L Chloride (98-107) mmol/L Carbon Dioxide (21-32) mmol/L Anion Gap (3-11) BUN (7-18) mg/dl Creatinine (0.6-1.4) mg/dl Est Cr Clr Drug Dosing ml/min Est GFR ( Amer) Est GFR (Non-Af Amer) BUN/Creatinine Ratio (10-20) Glucose (70-99) mg/dl Lactate 1.3 (0.4-2.0) mmol/L Calcium (8.5-10.1) mg/dl Total Bilirubin (0.2-1) mg/dl Direct Bilirubin (0-0.2) mg/dl AST (15-37) U/L ALT (12-78) U/L Alkaline Phosphatase (45-117) U/L Total Protein (6.4-8.2) gm/dl Albumin (3.4-5.0) gm/dl Globulin (2.5-4.0) gm/dl Albumin/Globulin Ratio (0.9-2) Lipase (73-393) U/L Procalcitonin 15.58 H (0-0.5) ng/ml Phenytoin (10-20) mcg/ml Hepatitis A IgM Ab NON-REACTIVE (NON-REACTIVE) Hep B Core IgM Ab NON-REACTIVE (NON-REACTIVE)
--- NOTE | 2019-02-23 15:40 | Infectious Disease Consult ---
Date of Consultation February 23, 2019 Assessment & Plan (1) Gram negative sepsis: 48-year-old male with gram-negative sepsis from cholangitis, cholecystitis, now status post ERCP and stenting procedures. Patient should continue on IV Zosyn for now, will await final identification and sensitivities of gram-negative isolate. Will follow. (2) Cholecystitis: (3) Cholangitis: History of Present Illness Reason for Consultation: Gram-negative bacteremia Attending Physician: Brittney Hilliard MD History of Present Illness 48-year-old male with history of seizure disorder, tobacco disuse disorder, was admitted to the hospital with 1 day history of severe abdominal pain, mostly in the epigastrium radiating around to his back, associated with shaking chills and weakness. Was found to have evidence of sepsis with CT scan suggestive of biliary tract obstruction and cholecystitis. Patient is now undergone emergency ERCP with placement of stents and removal of stone. Blood cultures are now growing gram-negative bacilli. Patient currently on cefepime and metronidazole. Abdominal pain improved since surgery. Currently afebrile and hemodynamically stable. Allergies Allergy/AdvReac Type Severity Reaction Status Date / Time No Known Allergies Allergy Verified 02/21/19 16:07 Home Medications Home Medications Medication Instructions Recorded Confirmed Type phenytoin sodium extended 400 mg PO BID 09/22/18 02/21/19 History ciprofloxacin HCl 500 mg PO BID 7 Days #14 tab 02/24/19 Rx omeprazole 20 mg PO DAILY 28 Days #28 cap 02/24/19 Rx Patient History Medical History Seizure disorder (Chronic) Tobacco abuse (Chronic) Low back pain with left-sided sciatica (Inactive) Surgical History History of ear surgery (Chronic) Family History Mother Diabetes Hypertension Sister Diabetes Hypertension Social History Preferred Language: Occitan Communication Ability: Effective Visual Impairment: No Limitations Hearing Ability: Normal Medical Assembler Required: No Beliefs That Will Affect Care: None marital status: Engaged marital status details: Fiance Current Living Situation: Significant Other Other Information That Helps Us Care for You: No Feels Safe at Home: Yes Safety Concerns: Feels Safe At This Time Smoking Status: Current every day smoker Tobacco Type: cigarettes Cigarettes Per Day: 10 Do You Dip or Chew Tobacco: Yes (1 can/week) Tobacco Cessation Education Requested by Patient: No Hx Alcohol Use: No Hx Substance Use: No Review of Systems Review of Systems: All systems reviewed & are unremarkable except as noted in HPI & below Physical Exam Constitutional: WD/WN, vitals as above + morbidly obese and comfortable; no acute distress Eyes: PERRL, conjunctivae normal, anicteric sclerae ENMT: external ear and nose normal, oropharynx normal Neck: trachea midline, no thyromegaly neck nontender Respiratory: normal respiratory effort, lungs clear to auscultation normal percussion; no respiratory distress Cardiovascular: Rate/Rhythm: regular rate and regular rhythm Heart Sounds: normal S1 and normal S2; no gallop, no murmur and no cardiac rub Gastrointestinal (Abdomen): Inspection/Auscultation: abdomen normal to inspection and normal bowel sounds Percussion/Palpation: + abdomen tender; no hepatosplenomegaly and no abdominal mass Musculoskeletal: no cyanosis or clubbing, extremities motor strength 5/5 Skin: no rashes, warm and dry no lesions Neurologic: moves all extremities and awake; no focal motor deficits Motor/Sensory: no sensory deficit Psychiatric: A+Ox3, euthymic affect Lymphatic: no cervical or axillary lymphadenopathy no inguinal lymphadenopathy Results & Data Vital Signs (Past 12 Hours) Vital Signs Temp Pulse Pulse Resp BP BP Pulse Ox 02/23/19 15:01 36.9 C 88 18 163/84 H 98 02/23/19 12:03 37.1 C 82 18 138/83 96 02/23/19 06:56 37.3 C 69 20 112/71 95 02/23/19 04:20 36.8 C 83 18 122/84 96 02/23/19 03:53 80 Laboratory Results Short CBC 02/23/19 Range/Units 05:29 WBC 7.69 (4.8-10.8) K/uL Hgb 14.8 (14.0-18.0) g/dL Hct 46.5 (42-52) % Plt Count 178 (130-400) K/uL BMP 02/23/19 05:29 Sodium 134 L Potassium 4.1 Chloride 100 Carbon Dioxide 30 BUN 11 Creatinine 0.84 Glucose 125 H Calcium 8.2 L Liver Function 02/23/19 Range/Units 05:29 Total Bilirubin 4.7 H (0.2-1) mg/dl Direct Bilirubin 3.7 H D (0-0.2) mg/dl AST 104 H (15-37) U/L ALT 150 H (12-78) U/L Alkaline Phosphatase 318 H (45-117) U/L Albumin 2.8 L (3.4-5.0) gm/dl Diagnostic Findings Microbiology 02/21/19 15:57 Blood Aerobic Blood Culture - Preliminary Gram negative bacilli 02/21/19 15:57 Blood Anaerobic Blood Culture - Preliminary Gram negative bacilli 02/21/19 17:34 Blood Aerobic Blood Culture - Preliminary Gram negative bacilli 02/21/19 17:34 Blood Anaerobic Blood Culture - Final CT abd pelvis IV con only CLINICAL HISTORY: Upper abdominal pain COMPARISON STUDY: None. TECHNIQUE: The patient was scanned in a dynamic helical fashion during intravenous administration of 116 cc of Optiray 320. The examination is somewhat technical standpoint due to the patient's large body habitus (410 pounds) A dose lowering technique was utilized adhering to the principles of ALARA. CT DOSE: 3253.28 mGy.cm FINDINGS: Lower chest: There are mild right middle lobe and basilar atelectatic changes. Liver: The liver is mildly enlarged. No focal hepatic masses are visualized. There is no ductal dilatation. The portal vein appears patent. Gallbladder: Equivocal cholelithiasis. No pericholecystic infiltration. No wall thickening. Spleen: Mildly enlarged measuring 12.6 cm. Pancreas: Unremarkable. Adrenal glands: Unremarkable. Kidneys: There is symmetric renal cortical enhancement. The kidneys are normal in size without hydronephrosis. Bowel: There are no transition zones indicate bowel obstruction. There is colonic diverticulosis. There is no evidence of acute diverticulitis. Portions of the ascending colon or calyceal view of the study. The appendix is not visualized with certainty. Peritoneum: There is no intraperitoneal free air or abdominal ascites. Vasculature: The abdominal aorta is normal in course and caliber. Adenopathy: None. Pelvic viscera: The bladder, and pelvic viscera are unremarkable. Skeletal structures: No destructive osseous lesions are seen. There are multilevel degenerative changes with prominent osteophytes. IMPRESSION: 1. Technically limited study. Portions of the right colon are excluded from the [id number] due to the patient's large body habitus 2. Mild hepatosplenomegaly 3. Equivocal cholelithiasis 4. No evidence of bowel obstruction. No evidence of free air 5. Diverticulosis. No evidence of acute diverticulitis. Electronically signed by: Silvio Nichole M.D. 02/21/2019 5:28 PM Dictated: 02/21/19 [id number]
[2019-02-23 18:47] LABS: Appearance Urine Clear (Clear); Color Urine Orange; Ictotest Urine Positive (Negative)
[2019-02-23 18:48] LABS: Specific Gravity Urine 1.021 (1.000-1.030)
[2019-02-23 18:49] LABS: Bacteria Urine Automated Negative (Negative)
--- NOTE | 2019-02-23 19:03 | Hospitalist Progress Note ---
Date of Service February 23, 2019 Assessment & Plan (1) Sepsis: Secondary to acute cholecystitis/choledocholithiasis/cholangitis Patient presenting with reports of abdominal pain, chest pain, shortness of breath Ms. criteria for sepsis on admission, hypothermic 35.4, WBC 13.9K, tachycardic, tachypnea, lactic acid 2.5; BP stable Status post ERCP with sphincterotomy-appreciate input from GI Patient continue with IV fluids, blood culture shows gram-negative bacilli, possible source cholangitis Vitals stable, with improved leukocytosis Repeat blood cultures ordered, ID evaluation requested Appreciate input from surgery, recommend outpatient follow-up for surgical procedure, no plan for cholecystectomy this admission (2) Transaminitis: Due to cholecystitis/choledocholithiasis/cholangitis - -CT ABD/pelvis showing equivocal cholelithiasis -suspect source as Status post post ERCP: Patient is continued with IV Zosyn, Clinically improved, Patient input from GI (3) Chest pain: (4) Acute electrocardiogram changes: Possible secondary to above: Cholangitis, acute cholecystitis Resented with abdominal pain/right upper chest pain, GI in nature Evidence of ACS -CTA chest negative for PE -EKG shows new T wave inversions in leads II,III, aVF, V4 through V6 Possible stress-induced, repeat EKG ordered -Currently chest pain-free -Serial troponin negative, echo shows no wall motion abnormality and, normal LV function (5) Hypophosphatemia: Corrected (6) Hypomagnesemia: -Replace, follow levels (7) Seizure disorder: -Stable, continue Dilantin (8) DVT prophylaxis: -SCDs CODE STATUS: Full code Disposition: Expected to be discharged home when medically stable Subjective Feels much better today, sitting up on chair, tolerating diet, no nausea vomiting, afebrile Complaint of abdominal pain Physical Exam Constitutional: WD/WN, vitals as above + morbidly obese, + obese, well groomed, cooperative and comfortable; no acute distress Eyes: PERRL, conjunctivae normal, anicteric sclerae ENMT: external ear and nose normal, oropharynx normal Respiratory: normal respiratory effort, lungs clear to auscultation normal respiratory effort; no respiratory distress Auscultation: + diminished lung sounds Cardiovascular: RRR, no murmur, no edema Rate/Rhythm: regular rate and re gular rhythm Vessels: normal peripheral pulses Extremities: + edema (+1 BLE) Gastrointestinal (Abdomen): normal bowel sounds, soft, nontender, no hepatosplenomegaly Inspection/Auscultation: abdomen not distended Percussion/Palpation: abdomen soft; abdomen nontender and no guarding Musculoskeletal: no cyanosis or clubbing, extremities motor strength 5/5 Skin: no rashes, warm and dry no jaundice Neurologic: PERRL, EOMI, accommodation nl, no face palsy, no dysarthria Motor/Sensory: no asterixis Psychiatric: A+Ox3, euthymic affect Lymphatic: no lymphedema Results & Data Vital Signs (Past 12 Hours) Vital Signs Temp Pulse Resp BP BP Pulse Ox 02/23/19 15:01 36.9 C 88 18 163/84 H 98 02/23/19 12:03 37.1 C 82 18 138/83 96
[2019-02-23] MEDS: PHENYTOIN SODIUM ER 100 MG CAP PO SCH (21:06)
[2019-02-24] MEDS: PIPERACILLIN/TAZOBACTAM 4.5 GM in DEXTROSE 5% 100 ML IV SCH (03:18)
[2019-02-24 06:16] LABS: Albumin Globulin Ratio 0.6 (0.9-2); Albumin Level 2.5 gm/dl (3.4-5.0); BUN Creatinine Ratio 9.9 (10-20); Bilirubin Direct 1.9 mg/dl (0-0.2); Bilirubin,Total 2.6 mg/dl (0.2-1); Calcium 8.4 mg/dl (8.5-10.1); Creatinine Clr Calc Pharmacy 234.3 ml/min; Est GFR (African American) 132.6; Est GFR (Non-African American) 114.4; Globulin 4.4 gm/dl (2.5-4.0); Potassium 4.1 mmol/L (3.5-5.1); Total Protein 6.9 gm/dl (6.4-8.2)
[2019-02-24] MEDS: PHENYTOIN SODIUM ER 100 MG CAP PO SCH ×2 (08:02→20:15)
[2019-02-24] MEDS: FAMOTIDINE 20 MG in SYRINGE 3 ML IV SCH (08:06)
--- NOTE | 2019-02-24 10:28 | Gastroenterology Progress Note ---
Date of Service February 24, 2019 Assessment & Plan (1) Sepsis: (2) Cholecystitis: (3) Cholangitis: Pt is a 48 y/o male presented w acute onset of R sided abd pain post prandially, nausea, elevated LFTs, sepsis w blood cx growing gram negative bacilli. Abd imaging concerning for cholecystitis, ? choledocholithiasis (+ cholelithiasis, though no biliary or pancreatic duct dilation) w likely cholangitis. Now S/P ERCP w/ evidence of cholangitis. Stents placed. Notes complete resolution of his GI symptoms. - Follow LFTs - No NSAIDs x 1 week - advance to low fat as tolerated - Use broad spectrum antibiotics for 10 days pending cultures - Refer to a surgeon to determine timing of cholecystectomy. - Repeat ERCP in 8 weeks to remove stent. Thank you for allowing us to participate in the care of this patient. Please call with any acute changes, questions or concerns. Please see addendum below with additional recommendation from my supervising physician. Subjective Feels much better today, sitting up on chair, tolerating diet, no nausea vomiting, afebrile Complaint of abdominal pain Physical Exam Physical Exam: Awake alert oriented x3 Heart regular Lungs are clear Abdomen soft nontender nondistended Obese Neurologically intact Results & Data Vital Signs (Past 12 Hours) Vital Signs Temp Pulse Pulse Resp BP BP Pulse Ox 02/24/19 07:14 36.7 C 77 18 122/77 91 02/24/19 02:55 37.2 C 73 20 139/87 90 02/24/19 00:33 69 02/23/19 23:38 36.9 C 67 20 148/77 H 90
--- NOTE | 2019-02-24 11:02 | Surgery Progress Note ---
Date of Service doing better, less abdominal pain, no nausea, no vomiting, no fever, February 24, 2019 Assessment & Plan (1) Cholecystitis: doing better, possible D/C home today or tomorrow, F/U . [facility] on Tuesday Subjective Feels much better today, sitting up on chair, tolerating diet, no nausea vomiting, afebrile Complaint of abdominal pain Physical Exam Constitutional: WD/WN, vitals as above well developed and well nourished Neck: trachea midline, no thyromegaly Respiratory: normal respiratory effort, lungs clear to auscultation normal respiratory effort Cardiovascular: RRR, no murmur, no edema Rate/Rhythm: regular rate and regular rhythm Gastrointestinal (Abdomen): Percussion/Palpation: + abdomen tender and abdomen soft slightly tenderness at RUQ, no rebound pain, no guarding, Neurologic: awake Psychiatric: Orientation: alert and oriented x 3 Results & Data Vital Signs (Past 12 Hours) Vital Signs Temp Pulse Pulse Resp BP BP Pulse Ox 02/24/19 07:14 36.7 C 77 18 122/77 91 02/24/19 02:55 37.2 C 73 20 139/87 90 02/24/19 00:33 69 02/23/19 23:38 36.9 C 67 20 148/77 H 90 Laboratory Results Abnormal lab results 02/23/19 02/24/19 Range/Units 17:40 05:13 BUN/Creatinine Ratio 9.9 L (10-20) Glucose 125 H (70-99) mg/dl Calcium 8.4 L (8.5-10.1) mg/dl Total Bilirubin 2.6 H (0.2-1) mg/dl Direct Bilirubin 1.9 H (0-0.2) mg/dl AST 75 H (15-37) U/L ALT 106 H (12-78) U/L Alkaline Phosphatase 295 H (45-117) U/L Albumin 2.5 L (3.4-5.0) gm/dl Globulin 4.4 H (2.5-4.0) gm/dl Albumin/Globulin Ratio 0.6 L (0.9-2) U Epithel Cells (Auto) 5-10 H (0-5) /lpf
[2019-02-24] MEDS ORDERED: cefTRIAXone SODIUM 2,000 MG in DEXTROSE 5% 50 ML IV SCH (12:00)
--- NOTE | 2019-02-24 14:17 | Hospitalist Progress Note ---
Date of Service February 24, 2019 Assessment & Plan (1) Cholangitis: Does not with right upper quadrant pain, discomfort, with elevated transaminase level, sepsis Appreciate input from GI, status post ERCP, with sphincterotomy, placement of biliary ductal stent Patient follow-up with GI in next 1 to 2 weeks for stent removal She is asked to avoid aspirin, NSAID for 1 week Patient will need elective cholecystectomy Surgery consulted Developed gram-negative bacteremia secondary to cholangitis: Blood culture E. coli pansensitive Was initially treated with IV Zosyn Appreciate input from ID Change to p.o. ciprofloxacin, will need 7 May more days of treatment Repeat blood culture no growth to date Diet advanced to low-fat tolerating well And to discharge home tomorrow (2) Gram-negative bacteremia: Secondary to acute cholecystitis/cholangitis Treatment as outlined above (3) Sepsis: Secondary to acute cholecystitis/choledocholithiasis/cholangitis Developed gram-negative bacteremia: Pansensitive E. coli and blood culture Patient presenting with reports of abdominal pain, chest pain, shortness of breath Met criteria for sepsis on admission, hypothermic 35.4, WBC 13.9K, tachycardic, tachypnea, lactic acid 2.5; BP stable Lactic acid level normalized with IV fluids, vitals remained stable, leukocytosis has resolved Status post ERCP with sphincterotomy-appreciate input from GI Patient continue with IV fluids, blood culture shows gram-negative bacillii/pansensitive E. coli Initially treated with IV Zosyn, changed to p.o. ciprofloxacin ID consulted, appreciate input: 7 more days of p.o. ciprofloxacin Appreciate input from surgery, recommend outpatient follow-up for surgical procedure, no plan for cholecystectomy this admission And to discharge home tomorrow (4) Transaminitis: Due to cholecystitis/choledocholithiasis/cholangitis - -CT ABD/pelvis showing equivocal cholelithiasis -suspect source as Status post post ERCP: LFTs continues to improve, Antibiotic treatment with for acute cholangitis gram-negative bacteremia Will need outpatient surgery follow-up for elective cholecystectomy (5) Chest pain: Sided chest pain possibly radiation from right gallbladder disease, resolved Evidence of ACS, (6) Acute electrocardiogram changes: Possible secondary to above: Cholangitis, acute cholecystitis/severe sepsis Resented with abdominal pain/right upper chest pain, GI in nature No evidence of ACS -CTA chest negative for PE -EKG shows new T wave inversions in leads II,III, aVF, V4 through V6 Possible stress-induced, -Serial troponin negative, echo shows no wall motion abnormality and, normal LV function Discontinue air sampling and monitoring (7) Hypophosphatemia: Corrected (8) Hypomagnesemia: -Replace, follow levels (9) Seizure disorder: -Stable, continue Dilantin (10) Gram negative sepsis: Secondary to acute cholecystitis/cholangitis, blood culture positive for pansensitive E. coli, management as outlined above (11) DVT prophylaxis: -SCDs CODE STATUS: Full code Plan to discharge home possible tomorrow Subjective Sitting on chair, tolerating low-fat diet well, no complaint of nausea vomiting or abdominal pain, afebrile Vitals remained stable Blood culture 02/23/2019, no growth to date Antibiotic changed to p.o. ciprofloxacin, plan to discharge home tomorrow if remains symptom-free Physical Exam Constitutional: WD/WN, vitals as above + morbidly obese, + obese, well groomed, cooperative and comfortable; no acute distress Eyes: PERRL, conjunctivae normal, anicteric sclerae ENMT: external ear and nose normal, oropharynx normal Respiratory: normal respiratory effort, lungs clear to auscultation normal respiratory effort; no respiratory distress Auscultation: + diminished lung sounds Cardiovascular: RRR, no murmur, no edema Rate/Rhythm: regular rate and regular rhythm Vessels: normal peripheral pulses Extremities: + edema (+1 BLE) Gastrointestinal (Abdomen): normal bowel sounds, soft, nontender, no hepatosplenomegaly Inspection/Auscultation: abdomen not distended Percussion/Palpation: abdomen soft; abdomen nontender and no guarding Musculoskeletal: no cyanosis or clubbing, extremities motor strength 5/5 Skin: no rashes, warm and dry no jaundice Neurologic: PERRL, EOMI, accommodation nl, no face palsy, no dysarthria Motor/Sensory: no asterixis Psychiatric: A+Ox3, euthymic affect Lymphatic: no lymphedema Results & Data Vital Signs (Past 12 Hours) Vital Signs Temp Pulse Pulse Resp BP BP Pulse Ox 02/24/19 11:22 36.4 C L 66 20 120/77 93 02/24/19 07:14 36.7 C 77 18 122/77 91 02/24/19 02:55 37.2 C 73 20 139/87 90 (1) Sepsis Sepsis type: Escherichia coli Qualified Code(s): A41.51 - Sepsis due to Escherichia coli [E. coli] (2) Chest pain Chest pain type: unspecified Qualified Code(s): R07.9 - Chest pain, unspecified
[2019-02-24] MEDS ORDERED: ALUMINUM/MAGNESIUM/SIMETH (MAALOX MAX) 30 ML UDC PO PRN (18:01)
[2019-02-24] MEDS: CIPROFLOXACIN 500 MG TAB PO SCH (20:15)
--- NOTE | 2019-02-25 05:05 | Infectious Disease Progress Nt ---
Date of Service February 24, 2019 Assessment & Plan (1) Gram negative sepsis: 48-year-old male with E. coli sepsis from cholangitis, cholecystitis, now status post ERCP and stenting procedures. Patient should be able to be transitioned to oral antibiotics and recommend combination of ciprofloxacin and metronidazole to continue until cholecystectomy performed. Discussed with hospitalist. Will follow. (2) Cholecystitis: (3) Cholangitis: Subjective Patient seen in follow-up for sepsis. Blood cultures have grown fully sensitive E. coli. Patient feeling better, no fever, abdominal pain decreasing. No other new complaints. Review of Systems Review of Systems: All systems reviewed & are unremarkable except as noted in HPI & below Physical Exam Constitutional: WD/WN, vitals as above + morbidly obese and comfortable; no acute distress Eyes: PERRL, conjunctivae normal, anicteric sclerae ENMT: external ear and nose normal, oropharynx normal Neck: trachea midline, no thyromegaly neck nontender Respiratory: normal respiratory effort, lungs clear to auscultation normal percussion; no respiratory distress Cardiovascular: Rate/Rhythm: regular rate and regular rhythm Heart Sounds: normal S1 and normal S2; no gallop, no murmur and no cardiac rub Gastrointestinal (Abdomen): Inspection/Auscultation: abdomen normal to inspection and normal bowel sounds Percussion/Palpation: + abdomen tender; no hepatosplenomegaly and no abdominal mass Musculoskeletal: no cyanosis or clubbing, extremities motor strength 5/5 No spinal tenderness, no joint swelling or erythema Skin: no rashes, warm and dry no lesions Neurologic: moves all extremities and awake; no focal motor deficits Motor/Sensory: no sensory deficit Psychiatric: A+Ox3, euthymic affect Lymphatic: no cervical or axillary lymphadenopathy no inguinal lymphadenopathy Results & Data Vital Signs (Past 12 Hours) Vital Signs Temp Pulse Resp BP Pulse Ox 02/24/19 23:53 37.2 C 74 18 140/80 91 Laboratory Results BMP 02/24/19 05:13 Sodium 136 Potassium 4.1 Chloride 101 Carbon Dioxide 31 BUN 7 Creatinine 0.67 Glucose 125 H Calcium 8.4 L Liver Function 02/24/19 Range/Units 05:13 Total Bilirubin 2.6 H (0.2-1) mg/dl Direct Bilirubin 1.9 H (0-0.2) mg/dl AST 75 H (15-37) U/L ALT 106 H (12-78) U/L Alkaline Phosphatase 295 H (45-117) U/L Albumin 2.5 L (3.4-5.0) gm/dl Diagnostic Findings Microbiology 02/23/19 13:10 Blood Aerobic Blood Culture - Preliminary No growth in Aerobic bottle after 24 hours. 02/23/19 13:10 Blood Anaerobic Blood Culture - Preliminary No growth in Anaerobic bottle after 24 hours. 02/23/19 13:04 Blood Aerobic Blood Culture - Preliminary No growth in Aerobic bottle after 24 hours. 02/23/19 13:04 Blood Anaerobic Blood Culture - Preliminary No growth in Anaerobic bottle after 24 hours. 02/21/19 15:57 Blood Aerobic Blood Culture - Preliminary Escherichia coli 02/21/19 15:57 Blood Anaerobic Blood Culture - Preliminary Escherichia coli 02/21/19 17:34 Blood Aerobic Blood Culture - Final Escherichia coli 02/21/19 17:34 Blood Anaerobic Blood Culture - Final
[2019-02-25 07:40] LABS: Albumin Level 2.7 gm/dl (3.4-5.0); BUN Creatinine Ratio 11.7 (10-20); Bilirubin Direct 1.4 mg/dl (0-0.2); Calcium 8.6 mg/dl (8.5-10.1); Creatinine Clr Calc Pharmacy 245.3 ml/min; Est GFR (African American) 135.1; Est GFR (Non-African American) 116.6; Potassium 3.8 mmol/L (3.5-5.1)
[2019-02-25 07:49] LABS: Albumin Globulin Ratio 0.6 (0.9-2); Globulin 4.8 gm/dl (2.5-4.0); Total Protein 7.5 gm/dl (6.4-8.2)
[2019-02-25] MEDS: FAMOTIDINE 20 MG TAB PO SCH (08:12)
[2019-02-25] MEDS: CIPROFLOXACIN 500 MG TAB PO SCH (08:12)
[2019-02-25] MEDS: PHENYTOIN SODIUM ER 100 MG CAP PO SCH ×2 (08:12→20:46)
--- NOTE | 2019-02-25 12:16 | Surgery Progress Note ---
Date of Service pt is still have some RUQ pain with nausea, no vomiting, no fever, February 25, 2019 Assessment & Plan (1) Cholecystitis: doing better, possible D/C home today or tomorrow, F/U Dr. Cadence on Tuesday02/25/2019 12:15pm stable, continue po antibiotic, F/U DR. Vila on Tuesday Subjective Patient seen in follow-up for sepsis. Blood cultures have grown fully sensitive E. coli. Patient feeling better, no fever, abdominal pain decreasing. No other new complaints. Physical Exam Constitutional: WD/WN, vitals as above well developed and well nourished Neck: trachea midline, no thyromegaly Respiratory: normal respiratory effort, lungs clear to auscultation normal respiratory effort Cardiovascular: RRR, no murmur, no edema Rate/Rhythm: regular rate and regular rhythm Gastrointestinal (Abdomen): Percussion/Palpation: + abdomen tender and abdomen soft some tenderness at RUQ, no guarding, BS + Neurologic: awake Psychiatric: Orientation: alert and oriented x 3 Results & Data Vital Signs (Past 12 Hours) Vital Signs Temp Pulse Resp BP Pulse Ox 02/25/19 07:08 36.6 C 65 18 160/96 H 95
[2019-02-25] MEDS: SODIUM CHLORIDE 0.9% 1000ML 1,000 ML IV SCH (14:32)
[2019-02-25] MEDS: cefTRIAXone SODIUM 2,000 MG in DEXTROSE 5% 50 ML IV SCH (14:32)
--- NOTE | 2019-02-25 18:14 | Hospitalist Progress Note ---
Date of Service February 25, 2019 Assessment & Plan (1) Cholangitis: Does not with right upper quadrant pain, discomfort, with elevated transaminase level, sepsis Appreciate input from GI, status post ERCP, with sphincterotomy, placement of biliary ductal stent Patient follow-up with GI in next 1 to 2 weeks for stent removal Surgery evaluation appreciated, plan for laparoscopic cholecystectomy tomorrow, order for n.p.o. past midnight Developed gram-negative bacteremia secondary to cholangitis: Blood culture E. coli pansensitive Was initially treated with IV Zosyn Appreciate input from ID Change to p.o. ciprofloxacin, will need 7 May more days of treatment Repeat blood culture no growth to date Diet advanced to low-fat tolerating well Ordered for n.p.o. past midnight for lap scopic cholecystectomy tomorrow (2) Gram-negative bacteremia: Secondary to acute cholecystitis/cholangitis Treatment as outlined above (3) Sepsis: Secondary to acute cholecystitis/choledocholithiasis/cholangitis Developed gram-negative bacteremia: Pansensitive E. coli and blood culture Patient presenting with reports of abdominal pain, chest pain, shortness of breath Met criteria for sepsis on admission, hypothermic 35.4, WBC 13.9K, tachycardic, tachypnea, lactic acid 2.5; BP stable Lactic acid level normalized with IV fluids, vitals remained stable, leukocytosis has resolved Status post ERCP with sphincterotomy-appreciate input from GI Patient continue with IV fluids, blood culture shows gram-negative bacillii/pansensitive E. coli Initially treated with IV Zosyn, changed to p.o. ciprofloxacin ID consulted, appreciate input: 7 more days of p.o. ciprofloxacin Appreciate input from surgery, plan for laparoscopic cholecystectomy tomorrow (4) Transaminitis: Due to cholecystitis/choledocholithiasis/cholangitis - -CT ABD/pelvis showing equivocal cholelithiasis -suspect source as Status post post ERCP: LFTs continues to improve, Antibiotic treatment with for acute cholangitis gram-negative bacteremia Surgery following, scheduled for laparoscopic cholecystectomy tomorrow (5) Chest pain: Sided chest pain possibly radiation from right gallbladder disease, resolved Evidence of ACS, (6) Acute electrocardiogram changes: Possible secondary to above: Cholangitis, acute cholecystitis/severe sepsis Resented with abdominal pain/right upper chest pain, GI in nature No evidence of ACS -CTA chest negative for PE -EKG shows new T wave inversions in leads II,III, aVF, V4 through V6 Possible stress-induced, -Serial troponin negative, echo shows no wall motion abnormality and, normal LV function (7) Hypophosphatemia: Corrected (8) Hypomagnesemia: -Replace, follow levels (9) Seizure disorder: -Stable, continue Dilantin (10) Gram negative sepsis: Secondary to acute cholecystitis/cholangitis, blood culture positive for pansensitive E. coli, management as outlined above (11) DVT prophylaxis: -SCDs CODE STATUS: Full code Subjective Patient sitting up on chair, tolerating diet, has mild epigastric discomfort, evaluated by surgery today, plan for laparoscopic cholecystectomy Tomorrow Physical Exam Constitutional: WD/WN, vitals as above + morbidly obese, + obese, well groomed, cooperative and comfortable; no acute distress Eyes: PERRL, conjunctivae normal, anicteric sclerae ENMT: external ear and nose normal, oropharynx normal Respiratory: normal respiratory effort, lungs clear to auscultation normal respiratory effort; no respiratory distress Auscultation: + diminished lung sounds Cardiovascular: RRR, no murmur, no edema Rate/Rhythm: regular rate and regular rhythm Vessels: normal peripheral pulses Extremities: + edema (+1 BLE) Gastrointestinal (Abdomen): normal bowel sounds, soft, nontender, no hepatosplenomegaly Inspection/Auscultation: abdomen not distended Percussion/Palpation: abdomen soft; abdomen nontender and no guarding Musculoskeletal: no cyanosis or clubbing, extremities motor strength 5/5 Skin: no rashes, warm and dry no jaundice Neurologic: PERRL, EOMI, accommodation nl, no face palsy, no dysarthria Motor/Sensory: no asterixis Psychiatric: A+Ox3, euthymic affect Lymphatic: no lymphedema Results & Data Vital Signs (Past 12 Hours) Vital Signs Temp Pulse Resp BP BP Pulse Ox 02/25/19 15:39 37.1 C 69 20 159/83 H 96 02/25/19 07:08 36.6 C 65 18 160/96 H 95 (1) Sepsis Sepsis type: Escherichia coli Qualified Code(s): A41.51 - Sepsis due to Escherichia coli [E. coli] (2) Chest pain Chest pain type: unspecified Qualified Code(s): R07.9 - Chest pain, unspecified
[2019-02-26] MEDS: SODIUM CHLORIDE 0.9% 1000ML 1,000 ML IV SCH ×2 (04:27→15:41)
[2019-02-26 06:33] LABS: Hemoglobin 14.3 g/dL (14.0-18.0); Mean Corpuscular Hgb Conc 33.3 g/dL (32-36); Mean Corpuscular Volume 92.7 fL (80-100); Mean Platelet Volume 9.6 fL (7.4-10.4); Platelet Count 192 K/uL (130-400); RDW Coefficient of Variation 14.4 % (11.5-14.5); RDW Standard Deviation 48.8 fL (36.4-46.3); Red Blood Count 4.64 M/uL (4.7-6.1); White Blood Count 8.84 K/uL (4.8-10.8)
[2019-02-26 07:04] LABS: Albumin Level 2.5 gm/dl (3.4-5.0); BUN Creatinine Ratio 10.8 (10-20); Bilirubin Direct 0.8 mg/dl (0-0.2); Calcium 8.5 mg/dl (8.5-10.1); Est GFR (African American) 139.7; Est GFR (Non-African American) 120.6; Potassium 3.7 mmol/L (3.5-5.1)
[2019-02-26 07:07] LABS: Albumin Globulin Ratio 0.5 (0.9-2); Bilirubin,Total 1.4 mg/dl (0.2-1); Total Protein 7.5 gm/dl (6.4-8.2)
[2019-02-26] MEDS: cefTRIAXone SODIUM 2,000 MG in DEXTROSE 5% 50 ML IV SCH (08:04)
[2019-02-26] MEDS: PHENYTOIN SODIUM ER 100 MG CAP PO SCH ×2 (08:04→20:56)
[2019-02-26] MEDS: FAMOTIDINE 20 MG TAB PO SCH (08:05)
--- NOTE | 2019-02-26 09:17 | Surgery Progress Note ---
Date of Service February 26, 2019 Assessment & Plan (1) Gram-negative bacteremia: s/p ERCP, limited progress, will plan for lap wood today Supervising Physician Co-Signing Physician Notes Patient seen and examined, agree with above. 48-year-old male presented with suspected choledocholithiasis possible cholangitis. He had an ERCP on evening and though his symptoms have improved he still having pain in his right upper quadrant. We will therefore plan for laparoscopic cholecystectomy with possible cholangiogram. The risk of the procedure were discussed to include but not limited to bleeding, infection, retained stone, bile leak, damage to surrounding structures including common bile duct, need for future or more extensive surgery, conversion to open, and the risk of anesthesia. Plan of care was discussed the patient and he agrees to proceed as planned. Subjective has epigastric pain, not much appetite Physical Exam Gastrointestinal (Abdomen): Inspection/Auscultation: abdomen not distended Percussion/Palpation: + abdomen tender (mild epigastric) and abdomen soft Results & Data Vital Signs (Past 12 Hours) Vital Signs Temp Pulse Resp BP BP Pulse Ox 02/26/19 07:53 36.8 C 69 18 153/94 H 93 02/26/19 00:30 37.3 C 65 18 137/83 96
[2019-02-26] MEDS ORDERED: BUPIVACAINE 0.5 % 5 MG/1 ML MPF 30ML VIAL ONE (11:50)
[2019-02-26] MEDS ORDERED: MIDAZOLAM HCL 1 MG/ML 2ML VIAL ONE (11:59)
[2019-02-26] MEDS ORDERED: ROCURONIUM BROMIDE 10 MG/ML 5 ML VIAL ONE (11:59)
[2019-02-26] MEDS ORDERED: ONDANSETRON INJ 2 MG/ML 2 ML VIAL ONE (11:59)
[2019-02-26] MEDS ORDERED: LIDOCAINE HCL 2% 2 ML VIAL/AMP(20MG/ML) INFIL ONE (11:59)
[2019-02-26] MEDS ORDERED: fentaNYL citrate 100 MCG/2 ML VIAL ONE (11:59)
[2019-02-26] MEDS ORDERED: PROPOFOL IV EMULSION 10 MG/ML 20 ML VIAL IV ONE (11:59)
--- NOTE | 2019-02-26 12:03 | Anesthesiology Consultation ---
Date of Service February 26, 2019 Assessment & Plan (1) Encounter for pre-operative examination: Chart Review Chart Review: Acceptable Risk for Surgery History Surgery Operation Date: 02/22/19 08:50 Proposed Procedures p Endoscopic Retrograde Cholangiopancreatogram - Annabel Pendleton Operation Date: 02/26/19 09:00 Proposed Procedures p Laparoscopic Cholecystectomy - Eduardo Vila DO, FACS Height/Weight Height: 5 ft 10 in Weight: 194.3 kg Allergies Allergy/AdvReac Type Severity Reaction Status Date / Time No Known Allergies Allergy Verified 02/21/19 16:07 Medications Home Medications Medication Instructions Recorded Confirmed Last Taken phenytoin sodium extended 400 mg PO BID 09/22/18 02/21/19 02/21/19 ciprofloxacin HCl 500 mg PO BID 7 Days #14 tab 02/24/19 Unknown omeprazole 20 mg PO DAILY 28 Days #28 cap 02/24/19 Unknown Active Medications Generic Name Dose Route Start Last Admin Trade Name Freq PRN Reason Stop Dose Admin Famotidine 20 mg 02/25/19 09:00 02/26/19 08:05 Pepcid PO 03/27/19 08:59 20 mg QAM DANDRE Administration Ceftriaxone Sodium 2,000 mg/ 70 mls @ 100 mls/hr 02/25/19 14:30 02/26/19 09:06 Dextrose IV 03/07/19 08:59 Infused DAILY DANDRE Infusion Protocol Sodium Chloride 1,000 mls @ 80 mls/hr 02/25/19 14:00 02/26/19 04:27 Nss 1000ml IV 03/27/19 13:59 80 mls/hr .[id number] DANDRE Administration Phenytoin Sodium 400 mg 02/23/19 21:00 02/26/19 08:04 Dilantin Er PO 03/25/19 20:59 400 mg BID DANDRE Administration NPO Date Last Intake of Fluids: 02/25/19 Time Last Intake of Fluids: 23:00 Last Intake of Fluids Comment: sips with pills Date Last Intake of Solids: 02/25/19 Time Last Intake of Solids: 18:00 Past Medical History Medical History Cholecystitis Seizure disorder (Chronic) Tobacco abuse (Chronic) Low back pain with left-sided sciatica (Inactive) Past Family History Family History Mother Diabetes Hypertension Sister Diabetes Hypertension Past Surgical History Surgical History History of ear surgery (Chronic) Social History Smoking Status: Current every day smoker tobacco type: cigarettes Smoking cigarettes per day: 10 Do You Dip or Chew Tobacco: Yes (1 can/week) Hx Alcohol Use: No Hx Substance Use: No Physical Exam Vital Signs Last Vital Signs Temp 36.8 C 02/26/19 07:53 Pulse 69 02/26/19 07:53 Resp 18 02/26/19 07:53 BP 153/94 H 02/26/19 07:53 Pulse Ox 93 02/26/19 07:53 Testing Laboratory Results 02/26/19 06:04 02/26/19 06:04 02/23/19 13:04 Aerobic Blood Culture - Preliminary Blood No growth in Aerobic bottle after 48 hours. Anaerobic Blood Culture - Preliminary No growth in Anaerobic bottle after 48 hours. 02/23/19 13:10 Aerobic Blood Culture - Preliminary Blood No growth in Aerobic bottle after 48 hours. Anaerobic Blood Culture - Preliminary No growth in Anaerobic bottle after 48 hours. 02/21/19 15:57 Aerobic Blood Culture - Final Blood Escherichia coli Anaerobic Blood Culture - Final Escherichia coli 02/21/19 17:34 Aerobic Blood Culture - Final Blood Escherichia coli Anaerobic Blood Culture - Final Electrocardiogram Date: 02/23/19 Findings: + NSR @ (95)
[2019-02-26] MEDS ORDERED: KETOROLAC 30 MG/ML VIAL IV PRN (12:14)
[2019-02-26] MEDS ORDERED: ATROPINE SULFATE 0.1 MG/ML 10ML SYR IV PRN (12:14)
[2019-02-26] MEDS ORDERED: ONDANSETRON INJ 2 MG/ML 2 ML VIAL IV PRN ×2 (12:14→15:25)
[2019-02-26] MEDS ORDERED: CEFAZOLIN 3000MG 72.5 ML IV ONE (12:24)
[2019-02-26] MEDS ORDERED: CEFAZOLIN 3000MG/72.5 ML BAG IV ONE (12:25)
--- NOTE | 2019-02-26 14:05 | Operative Report ---
Post Operative Report Pre & Post Diagnosis Operation Date: 02/26/19 09:00 Pre-Op Diagnosis: Cholelithiasis, cholecystitis with cholangitis, morbid obesity Post-Op Diagnosis: Cholelithiasis, cholecystitis with cholangitis, morbid obesity Procedure Operation Date: 02/26/19 09:00 Actual Procedures p Laparoscopic Cholecystectomy - Eduardo Vila DO, VIKKI Surgeon Eduardo Vila DO, FACS [employer] Estimated Blood Loss 5 Findings Consistent with Post-Op Diagnosis Surgery difficult secondary to patient's body habitus. Moderate inflammation of the gallbladder. Critical view of safety obtained. Cystic duct dilated, 30 mm manzano loaded Endo SIGIFREDO stapler used to divide cystic duct. Cystic artery doubly clipped and divided. Good hemostasis. Specimens Call blood Anesthesia Type General Complications none Disposition Accompanied Patient To Recovery: No Disposition: Recovery Room Indications 48-year-old male admitted last week with gallbladder sludge and suspected cholangitis. ERCP performed on . Overall he is improved since then, however he is continues to complain of right upper quadrant pain. Plan for laparoscopic cholecystectomy, possible cholangiogram per the risks of the p rocedure were discussed, all questions were answered, and the patient agreed to proceed with surgery as planned. Description of Procedure The patient was properly identified, consented, and taken to the operating room where he was placed in the supine position. General endotracheal anesthesia was induced. SCDs and a safety belt were placed. Preoperative antibiotics were administered. The patient's abdomen was prepped and draped in the standard sterile fashion. A surgical timeout was performed and all parties were in agreement that this was the correct patient and procedure to be performed and we continued as planned. An incision was made superior and to the left of the umbilicus overlying the rectus muscle and the Veress needle was inserted. Saline drop test confirmed entry into the peritoneum. The abdomen was insufflated with carbon dioxide which the patient tolerated without incident. The abdomen was then entered using the Optiview technique and a 5 mm trocar. The laparoscope was inserted and no damage from initial trocar or Veress needle placement was noted, no gross abnormalities were noted within the 4 quadrants of the abdomen. An 11 mm port was placed in the subxiphoid position and two 5 mm ports were then placed in the right subcostal position. The patient was placed in reverse Trendelenburg position and rotated towards the left. The gallbladder was moderately inflamed. The dome of the gallbladder was retracted towards the left upper quadrant and the infundibulum was retracted toward the right lower quadrant revealing Calot's triangle. Peritoneal attachments were taken down with electrocautery and blunt dissection. The cystic duct and artery were circumferentially dissected. A window of safety was o btained showing the cystic duct entering the gallbladder with no aberrant structures noted. The cystic duct was dilated and a 10 mm clip tank riveter would not fit across it. Cystic duct was then divided using an Endo SIGIFREDO manzano loaded 30 mm stapler. The cystic artery was doubly clipped and divided. The gallbladder was then lifted off the gallbladder fossa with electrocautery. The gallbladder was placed in an Endo Catch bag and removed through the subxiphoid port site. The right upper quadrant was irrigated and hemostasis was found to be good. 5 mm trochars were removed under direct visualization and the abdomen was allowed to collapse. The subxiphoid port site fascia was closed with 0 Vicryl suture. The wound was irrigated, and the skin of all ports was closed with 4-0 Monocryl subcuticular sutures. Dermabond was placed over the wounds. The patient was extubated in the operating room and taken to the PACU where he recovered without apparent incident. All sponge, instrument and needle counts were correct at the conclusion of the procedure. The patient tolerated the procedure well. Patient is 5 foot 10 inches and weight 194.3 kg with a BMI of 61.5. This made the surgery technically difficult due to the size of the body wall and intra- abdominal fat tissue. The physician's assistant store manager was present and scrubbed for the entirety of the case and was essential in positioning the patient, prepping and draping, retraction and exposure, driving the laparoscope, removal of the gallbladder, closure the incisions, and placement of the dressings. I attest to the content of the Intraoperative Record and any orders documented therein. Any exceptions are noted below.
[2019-02-26] MEDS: HYDROmorphone INJ 1 MG/ML SYRINGE IV PRN ×5 (14:20→14:55)
--- NOTE | 2019-02-26 15:06 | Anesthesiology Progress Note ---
Date of Service February 26, 2019 Anesthesia Post Procedure Vital Signs Vital Signs: Temp Pulse Resp BP BP Pulse Ox 02/26/19 14:50 77 20 129/85 96 02/26/19 14:40 77 22 150/91 H 96 02/26/19 14:30 77 24 155/82 H 95 02/26/19 14:20 78 21 157/109 H 97 02/26/19 14:13 36.3 C L 67 21 154/93 H 93 02/26/19 12:17 36.9 C 62 18 153/83 H 93 02/26/19 07:53 36.8 C 69 18 153/94 H 93 02/26/19 00:30 37.3 C 65 18 137/83 96 02/25/19 15:39 37.1 C 69 20 159/83 H 96 Pain Intensity Chest: Pain Intensity: 0 Abdomen: Pain Intensity: 6 Transfer of Care Handoff Completed per policy Notes Mental Status: alert / awake / arousable Patient Amnestic to Procedure: Yes Nausea / Vomiting: adequately controlled Pain: adequately controlled Airway Patency, RR, SpO2: stable & adequate BP & HR: stable & adequate Hydration State: stable & adequate Anesthetic Complications: no major complications apparent
[2019-02-26] MEDS ORDERED: MoRPHine SULFATE 4 MG/ML 1 ML CARP\\VIAL IV PRN (15:25)
--- NOTE | 2019-02-26 16:02 | Infectious Disease Progress Nt ---
Date of Service February 26, 2019 Assessment & Plan (1) Gram negative sepsis: 48-year-old male with E. coli sepsis from cholangitis, cholecystitis, now status post ERCP, stenting, and cystectomy. Continue IV antibiotics for now. Will follow. (2) Cholecystitis: (3) Cholangitis: Subjective No complaint of abdominal pain, no nausea vomiting, feels fine, diet advanced to low-fat, tolerating well, evaluated by surgery today stable to be discharged home Review of Systems Review of Systems: All systems reviewed & are unremarkable except as noted in HPI & below Physical Exam Constitutional: WD/WN, vitals as above + morbidly obese and comfortable; no acute distress Eyes: PERRL, conjunctivae normal, anicteric sclerae ENMT: external ear and nose normal, oropharynx normal Neck: trachea midline, no thyromegaly neck nontender Respiratory: normal respiratory effort, lungs clear to auscultation normal percussion; no respiratory distress Cardiovascular: Rate/Rhythm: regular rate and regular rhythm Heart Sounds: normal S1 and normal S2; no gallop, no murmur and no cardiac rub Gastrointestinal (Abdomen): Inspection/Auscultation: abdomen normal to inspection and normal bowel sounds Percussion/Palpation: + abdomen tender; no hepatosplenomegaly and no abdominal mass Musculoskeletal: no cyanosis or clubbing, extremities motor strength 5/5 Skin: no rashes, warm and dry no lesions Neurologic: moves all extremities and awake; no focal motor deficits Motor/Sensory: no sensory deficit Psychiatric: A+Ox3, euthymic affect Lymphatic: no cervical or axillary lymphadenopathy no inguinal lymphadenopathy Results & Data Vital Signs (Past 12 Hours) Vital Signs Temp Pulse Resp BP Pulse Ox 02/26/19 15:53 87 20 146/85 H 90 02/26/19 15:33 36.8 C 81 20 149/81 H 92 02/26/19 15:00 36.5 C 78 23 144/89 H 94 02/26/19 14:50 77 20 129/85 96 02/26/19 14:40 77 22 150/91 H 96 02/26/19 14:30 77 24 155/82 H 95 02/26/19 14:20 78 21 157/109 H 97 02/26/19 14:13 36.3 C L 67 21 154/93 H 93 02/26/19 12:17 36.9 C 62 18 153/83 H 93 02/26/19 07:53 36.8 C 69 18 153/94 H 93 Laboratory Results Short CBC 02/26/19 Range/Units 06:04 WBC 8.84 (4.8-10.8) K/uL Hgb 14.3 (14.0-18.0) g/dL Hct 43.0 (42-52) % Plt Count 192 (130-400) K/uL BMP 02/26/19 06:04 Sodium 135 L Potassium 3.7 Chloride 100 Carbon Dioxide 32 BUN 6 L Creatinine 0.59 L Glucose 129 H Calcium 8.5 Liver Function 02/26/19 Range/Units 06:04 Total Bilirubin 1.4 H (0.2-1) mg/dl Direct Bilirubin 0.8 H (0-0.2) mg/dl AST 57 H (15-37) U/L ALT 74 (12-78) U/L Alkaline Phosphatase 335 H (45-117) U/L Albumin 2.5 L (3.4-5.0) gm/dl Diagnostic Findings Microbiology 02/23/19 13:04 Blood Aerobic Blood Culture - Preliminary No growth in Aerobic bottle after 48 hours. 02/23/19 13:04 Blood Anaerobic Blood Culture - Preliminary No growth in Anaerobic bottle after 48 hours. 02/23/19 13:10 Blood Aerobic Blood Culture - Preliminary No growth in Aerobic bottle after 48 hours. 02/23/19 13:10 Blood Anaerobic Blood Culture - Preliminary No growth in Anaerobic bottle after 48 hours. 02/21/19 15:57 Blood Aerobic Blood Culture - Final Escherichia coli 02/21/19 15:57 Blood Anaerobic Blood Culture - Final Escherichia coli 02/21/19 17:34 Blood Aerobic Blood Culture - Final Escherichia coli 02/21/19 17:34 Blood Anaerobic Blood Culture - Final
[2019-02-26] MEDS ORDERED: GLUCAGON FOR INJ 1 MG VIAL ONE (16:18)
[2019-02-26] MEDS: OXYCODONE/ACETAMINOPHEN 5mg/325mg TAB PO PRN (20:55)
--- NOTE | 2019-02-26 22:59 | Hospitalist Progress Note ---
Date of Service February 26, 2019 Assessment & Plan (1) Cholangitis: Does not with right upper quadrant pain, discomfort, with elevated transaminase level, sepsis Appreciate input from GI, status post ERCP, with sphincterotomy, placement of biliary ductal stent Surgery evaluation appreciated, s/p laparoscopic cholecystectomy todas/p Developed gram-negative bacteremia secondary to cholangitis: Blood culture E. coli pansensitive Was initially treated with IV Zosyn Appreciate input from ID Change to p.o. ciprofloxacin, will need 7 May more days of treatment Repeat blood culture no growth to date Diet advanced to low-fat tolerating well Ordered for n.p.o. past midnight for lap scopic cholecystectomy tomorrow (2) Gram-negative bacteremia: Secondary to acute cholecystitis/cholangitis Treatment as outlined above (3) Sepsis: Secondary to acute cholecystitis/choledocholithiasis/cholangitis Developed gram-negative bacteremia: Pansensitive E. coli and blood culture Patient presenting with reports of abdominal pain, chest pain, shortness of breath Met criteria for sepsis on admission, hypothermic 35.4, WBC 13.9K, tachycardic, tachypnea, lactic acid 2.5; BP stable Lactic acid level normalized with IV fluids, vitals remained stable, leukocytosis has resolved Status post ERCP with sphincterotomy-appreciate input from GI Patient continue with IV fluids, blood culture shows gram-negative bacillii/pansensitive E. coli Initially treated with IV Zosyn, changed to p.o. ciprofloxacin ID consulted, appreciate input: 7 more days of p.o. ciprofloxacin Appreciate input from surgery, s/p laparoscopic cholecystectomy today (4) Transaminitis: Due to cholecystitis/choledocholithiasis/cholangitis - -CT ABD/pelvis showing equivocal cholelithiasis -suspect source as Status post post ERCP: LFTs continues to improve, Antibiotic treatment with for acute cholangitis gram-negative bacteremia Surgery following, (5) Chest pain: Sided chest pain possibly radiation from right gallbladder disease, resolved Evidence of ACS, (6) Acute electrocardiogram changes: Possible secondary to above: Cholangitis, acute cholecystitis/severe sepsis Resented with abdominal pain/right upper chest pain, GI in nature No evidence of ACS -CTA chest negative for PE -EKG shows new T wave inversions in leads II,III, aVF, V4 through V6 Possible stress-induced, -Serial troponin negative, echo shows no wall motion abnormality and, normal LV function (7) Hypophosphatemia: Corrected (8) Hypomagnesemia: -Replace, follow levels (9) Seizure disorder: -Stable, continue Dilantin (10) Gram negative sepsis: Secondary to acute cholecystitis/cholangitis, blood culture positive for pansensitive E. coli, management as outlined above (11) DVT prophylaxis: -SCDs CODE STATUS: Full code Subjective S/P lapartoscopic cholecystectomy today has minimum pain in epigastrium no nausea tolerating diet well no fever or chills Physical Exam Constitutional: WD/WN, vitals as above + morbidly obese, + obese, well groomed, cooperative and comfortable; no acute distress Eyes: PERRL, conjunctivae normal, anicteric sclerae ENMT: external ear and nose normal, oropharynx normal Respiratory: normal respiratory effort, lungs clear to auscultation normal respiratory effort; no respiratory distress Cardiovascular: RRR, no murmur, no edema Rate/Rhythm: regular rate and regular rhythm Vessels: normal peripheral pulses Extremities: + edema (+1 BLE) Gastrointestinal (Abdomen): normal bowel sounds, soft, nontender, no hepatosplenomegaly Inspection/Auscultation: + abdominal surgical incision (laparoscopic surgical scars noted , healting well ) Percussion/Palpation: abdomen soft Musculoskeletal: no cyanosis or clubbing, extremities motor strength 5/5 Skin: no rashes, warm and dry no jaundice Neurologic: PERRL, EOMI, accommodation nl, no face palsy, no dysarthria Motor/Sensory: no asterixis Psychiatric: A+Ox3, euthymic affect Lymphatic: no lymphedema Results & Data Vital Signs (Past 12 Hours) Vital Signs Temp Pulse Resp BP Pulse Ox 02/26/19 20:55 36.9 C 91 H 20 144/87 H 91 02/26/19 15:53 87 20 146/85 H 90 02/26/19 15:33 36.8 C 81 20 149/81 H 92 02/26/19 15:00 36.5 C 78 23 144/89 H 94 02/26/19 14:50 77 20 129/85 96 02/26/19 14:40 77 22 150/91 H 96 02/26/19 14:30 77 24 155/82 H 95 02/26/19 14:20 78 21 157/109 H 97 02/26/19 14:13 36.3 C L 67 21 154/93 H 93 02/26/19 12:17 36.9 C 62 18 153/83 H 93 (1) Sepsis Sepsis type: Escherichia coli Qualified Code(s): A41.51 - Sepsis due to Escherichia coli [E. coli] (2) Chest pain Chest pain type: unspecified Qualified Code(s): R07.9 - Chest pain, unspecified
[2019-02-27] MEDS: SODIUM CHLORIDE 0.9% 1000ML 1,000 ML IV SCH (04:04)
[2019-02-27] MEDS: OXYCODONE/ACETAMINOPHEN 5mg/325mg TAB PO PRN ×2 (04:53→13:43)
[2019-02-27 06:42] LABS: Basophils # (auto) 0.03 K/uL (0-0.2); Basophils % (auto) 0.2 %; Eosinophils # (auto) 0.07 K/uL (0-0.5); Eosinophils % (auto) 0.6 %; Hematocrit (blood only) 41.9 % (42-52); Hemoglobin 14.1 g/dL (14.0-18.0); Immature Granulocytes # (auto) 0.08 K/uL (0.00-0.02); Immature Granulocytes % (auto) 0.6 %; Lymphocytes # (auto) 0.82 K/uL (1.2-3.4); Lymphocytes % (auto) 6.6 %; Mean Corpuscular Hgb Conc 33.7 g/dL (32-36); Mean Corpuscular Volume 93.5 fL (80-100); Mean Platelet Volume 9.3 fL (7.4-10.4); Monocytes # (auto) 0.88 K/uL (0.11-0.59); Monocytes % (auto) 7.1 %; Neutrophils # (auto) 10.58 K/uL (1.4-6.5); Neutrophils % (auto) 84.9 %; Platelet Count 220 K/uL (130-400); RDW Coefficient of Variation 14.5 % (11.5-14.5); RDW Standard Deviation 49.6 fL (36.4-46.3); Red Blood Count 4.48 M/uL (4.7-6.1); White Blood Count 12.46 K/uL (4.8-10.8)
[2019-02-27 07:16] LABS: Albumin Level 2.4 gm/dl (3.4-5.0); BUN Creatinine Ratio 8.8 (10-20); Bilirubin Direct 0.8 mg/dl (0-0.2); Calcium 8.7 mg/dl (8.5-10.1); Creatinine Clr Calc Pharmacy 261.6 ml/min; Est GFR (African American) 138.8; Est GFR (Non-African American) 119.7; Potassium 3.8 mmol/L (3.5-5.1)
[2019-02-27 07:19] LABS: Albumin Globulin Ratio 0.5 (0.9-2); Bilirubin,Total 1.6 mg/dl (0.2-1); Globulin 4.7 gm/dl (2.5-4.0); Total Protein 7.1 gm/dl (6.4-8.2)
--- NOTE | 2019-02-27 08:03 | Anesthesiology Progress Note ---
Date of Service February 27, 2019 Anesthesia Post Procedure Vital Signs Vital Signs: Temp Pulse Pulse Pulse Resp BP BP 02/27/19 07:18 37.3 C 77 20 125/66 02/27/19 07:09 81 02/27/19 04:30 37.1 C 85 18 132/84 02/27/19 02:50 85 02/27/19 00:02 37.7 C H 79 18 150/74 H 02/26/19 20:55 36.9 C 91 H 20 144/87 H 02/26/19 15:53 87 20 146/85 H 02/26/19 15:33 36.8 C 81 20 149/81 H 02/26/19 15:00 36.5 C 78 23 144/89 H 02/26/19 14:50 77 20 129/85 02/26/19 14:40 77 22 150/91 H 02/26/19 14:30 77 24 155/82 H 02/26/19 14:20 78 21 157/109 H 02/26/19 14:13 36.3 C L 67 21 154/93 H 02/26/19 12:17 36.9 C 62 18 153/83 H Pulse Ox 02/27/19 07:18 90 02/27/19 07:09 02/27/19 04:30 92 02/27/19 02:50 02/27/19 00:02 94 02/26/19 20:55 91 02/26/19 15:53 90 02/26/19 15:33 92 02/26/19 15:00 94 02/26/19 14:50 96 02/26/19 14:40 96 02/26/19 14:30 95 02/26/19 14:20 97 02/26/19 14:13 93 02/26/19 12:17 93 Pain Intensity Chest: Pain Intensity: 0 Abdomen: Pain Intensity: 2 Notes Mental Status: alert / awake / arousable Patient Amnestic to Procedure: Yes Nausea / Vomiting: adequately controlled Pain: adequately controlled Airway Patency, RR, SpO2: stable & adequate BP & HR: stable & adequate Hydration State: stable & adequate Anesthetic Complications: no major complications apparent
[2019-02-27] MEDS: PHENYTOIN SODIUM ER 100 MG CAP PO SCH (08:30)
[2019-02-27] MEDS: FAMOTIDINE 20 MG TAB PO SCH (08:31)
[2019-02-27] MEDS: cefTRIAXone SODIUM 2,000 MG in DEXTROSE 5% 50 ML IV SCH (08:35)
--- NOTE | 2019-02-27 09:03 | Surgery Progress Note ---
Date of Service February 27, 2019 Assessment & Plan (1) Gram-negative bacteremia: POD 1 lap wood ok for discharge, f/u 2 weeks Subjective some pain, had toast this morning Physical Exam Gastrointestinal (Abdomen): Inspection/Auscultation: + abdominal surgical incision (clean dry); abdomen not distended Percussion/Palpation: abdomen soft Results & Data Vital Signs (Past 12 Hours) Vital Signs Temp Pulse Pulse Pulse Resp BP BP 02/27/19 07:18 37.3 C 77 20 125/66 02/27/19 07:09 81 02/27/19 04:30 37.1 C 85 18 132/84 02/27/19 02:50 85 02/27/19 00:02 37.7 C H 79 18 150/74 H Pulse Ox 02/27/19 07:18 90 02/27/19 07:09 02/27/19 04:30 92 02/27/19 02:50 02/27/19 00:02 94
--- NOTE | 2019-02-27 12:48 | Hospitalist Progress Note ---
Date of Service February 27, 2019 Assessment & Plan (1) Cholangitis: Presented with right upper quadrant pain, discomfort, with elevated transaminase level, sepsis Appreciate input from GI, status post ERCP, with sphincterotomy, placement of biliary ductal stent Surgery evaluation appreciated, s/p laparoscopic cholecystectomy 02/26/2019 Postop day 1 Developed gram-negative bacteremia secondary to cholangitis: Blood culture E. coli pansensitive Repeat blood culture no growth Was initially treated with IV Zosyn Appreciate input from ID Diet advanced to low-fat tolerating well Antibiotic changed to p.o. Augmentin, 5 more days of treatment Stable to be discharged home today (2) Gram-negative bacteremia: Secondary to acute cholecystitis/cholangitis With 5 more day of p.o. Augmentin (3) Sepsis: Resolved Secondary to acute cholecystitis/choledocholithiasis/cholangitis Developed gram-negative bacteremia: Pansensitive E. coli and blood culture Patient presenting with reports of abdominal pain, chest pain, shortness of breath Met criteria for sepsis on admission, hypothermic 35.4, WBC 13.9K, tachycardic, tachypnea, lactic acid 2.5; BP stable Lactic acid level normalized with IV fluids, vitals remained stable, leukocytosis has resolved Status post ERCP with sphincterotomy-appreciate input from GI Status post laparoscopic cholecystectomy blood culture shows gram-negative bacillii/pansensitive E. coli Initially treated with IV Zosyn, ID consulted, appreciate input: Patient will be discharged with 5 more day of p.o. Augmentin (4) Transaminitis: Due to cholecystitis/choledocholithiasis/cholangitis - -CT ABD/pelvis showing equivocal cholelithiasis -suspect source as Status post post ERCP: LFTs continues to improve, Antibiotic treatment with for acute cholangitis gram-negative bacteremia Surgery following, Status post laparoscopic cholecystectomy on 02/26/2019 LFTs improved to baseline, Able to be discharged home (5) Chest pain: Right sided chest pain possibly radiation from right gallbladder disease, resolved No evidence of ACS, (6) Acute electrocardiogram changes: Possible secondary to above: Cholangitis, acute cholecystitis/severe sepsis Resented with abdominal pain/right upper chest pain, GI in nature No evidence of ACS -CTA chest negative for PE -EKG shows new T wave inversions in leads II,III, aVF, V4 through V6 Possible stress-induced, -Serial troponin negative, echo shows no wall motion abnormality and, normal LV function (7) Hypophosphatemia: Corrected (8) Hypomagnesemia: -Replaced (9) Seizure disorder: -Stable, continue Dilantin (10) Gram negative sepsis: Secondary to acute cholecystitis/cholangitis, blood culture positive for pansensitive E. coli, Resolved: Blood cultures no growth Will be discharged home with p.o. Augmentin (11) DVT prophylaxis: -SCDs CODE STATUS: Full code Disposition: Able to be discharged home today Family medicine follow-up with Dr. Paez on 03/02/2019 Surgery follow-up with Dr. Vila in 2 weeks Subjective No complaint of abdominal pain, no nausea vomiting, feels fine, diet advanced to low-fat, tolerating well, evaluated by surgery today stable to be discharged home Physical Exam Constitutional: WD/WN, vitals as above + morbidly obese, + obese, well groomed, cooperative and comfortable; no acute distress Eyes: PERRL, conjunctivae normal, anicteric sclerae ENMT: external ear and nose normal, oropharynx normal Respiratory: normal respiratory effort, lungs clear to auscultation normal respiratory effort; no respiratory distress Auscultation: + diminished lung sounds Cardiovascular: RRR, no murmur, no edema Rate/Rhythm: regular rate and regular rhythm Vessels: normal peripheral pulses Gastrointestinal (Abdomen): normal bowel sounds, soft, nontender, no hepatosplenomegaly Inspection/Auscultation: + abdominal surgical incision (laparoscopic surgical scars noted , healting well ) Percussion/Palpation: abdomen soft Musculoskeletal: no cyanosis or clubbing, extremities motor strength 5/5 Skin: no rashes, warm and dry no jaundice Neurologic: PERRL, EOMI, accommodation nl, no face palsy, no dysarthria Motor/Sensory: no asterixis Psychiatric: A+Ox3, euthymic affect Lymphatic: no lymphedema Results & Data Vital Signs (Past 12 Hours) Vital Signs Temp Pulse Pulse Pulse Resp BP BP 02/27/19 12:38 36.7 C 88 85 20 125/66 142/76 H 02/27/19 11:33 36.7 C 88 20 142/76 H 02/27/19 07:18 37.3 C 77 20 125/66 02/27/19 07:09 81 02/27/19 04:30 37.1 C 85 18 132/84 05/21/19 02:50 85 Pulse Ox 02/27/19 12:38 91 02/27/19 11:33 91 02/27/19 07:18 90 02/27/19 07:09 02/27/19 04:30 92 02/27/19 02:50 (1) Sepsis Sepsis type: Escherichia coli Qualified Code(s): A41.51 - Sepsis due to Escherichia coli [E. coli] (2) Chest pain Chest pain type: unspecified Qualified Code(s): R07.9 - Chest pain, unspecified
[2019-02-27] MEDS ORDERED: POLYETHYLENE (MIRALAX) 17 GM PACK PO PRN (13:02)
[2019-02-27] MEDS ORDERED: POLYETHYLENE (MIRALAX) 17 GM PACK ONE (13:05)
--- NOTE | 2019-02-27 16:21 | Discharge Summary ---
Date of Service February 27, 2019 Admission HPI Per Admitting Provider 48-year-old male presents the ED with abdominal pain, chest pain, shortness of breath. Patient reports his symptoms began suddenly at 11:00 this morning. Symptoms were persistent until he arrived to the ED and received pain medications. Patient describes the abdominal pain as being located in the epigastric area. He reports the pain was radiating up into his chest and felt like indigestion. Pain was also radiating around into his back on both sides. He reports associated shortness of breath and nausea. No lightheadedness, dizziness, diaphoresis, syncopal event. He denies vomiting or diarrhea. He had shaking chills however did not take his temperature. He denies any urinary symptoms. In the ED, initial vitals show temp 35.4, tachycardia, tachypnea, stable BP. Labs show WBC 13.9K, lactate 2.5, hypomagnesemia, hypophosphatemia, and transaminitis. Initial troponin is negative and EKG shows new T wave inversions in leads II, III, aVF, V4 through V6. CTA chest is negative for PE. CT ABD/pelvis shows equivocal cholelithiasis however limited study secondary to patient's size. Patient was given IVF, IV Zosyn, IV potassium and magnesium replacement, IV Tylenol. Principal Diagnosis Acute cholecystitis Discharge Exam Constitutional WD/WN, vitals as above + morbidly obese, + obese, well groomed, cooperative and comfortable; no acute distress Eyes PERRL, conjunctivae normal, anicteric sclerae ENMT external ear and nose normal, oropharynx normal Respiratory normal respiratory effort, lungs clear to auscultation normal respiratory effort; no respiratory distress Auscultation: + diminished lung sounds Cardiovascular RRR, no murmur, no edema Rate/Rhythm: regular rate and regular rhythm Vessels: normal peripheral pulses Extremities: + edema (+1 BLE) Gastrointestinal (Abdomen) normal bowel sounds, soft, nontender, no hepatosplenomegaly Inspection/Auscultation: + abdominal surgical incision (laparoscopic surgical scars noted , healting well ) Percussion/Palpation: abdomen soft Musculoskeletal no cyanosis or clubbing, extremities motor strength 5/5 Skin no rashes, warm and dry no jaundice Neurologic PERRL, EOMI, accommodation nl, no face palsy, no dysarthria Motor/Sensory: no asterixis Psychiatric A+Ox3, euthymic affect Lymphatic no lymphedema Discharge Data Allergies Allergy/AdvReac Type Severity Reaction Status Date / Time No Known Allergies Allergy Verified 02/21/19 16:07 Consultations 02/21/19 18:01 ED Decision to Admit Stat 02/21/19 20:21 Consult Gastroenterology Routine 02/22/19 09:34 Consult General Surgery Routine 02/23/19 12:52 Consult Infectious Diseases Routine Procedures Performed Operation Date: 02/22/19 08:50 Actual Procedures p Endoscopic Retrograde Cholangiopancreatogram,sphinterotomy, biliary stent placement and pancreatic stent placement - Annabel Pendleton Operation Date: 02/26/19 09:00 Actual Procedures p Laparoscopic Cholecystectomy(Not Applicable) - Eduardo Pollack, DO, FACS Ordered Studies 02/21/19 15:42 CT abd pelvis IV con only Stat CT angio chest PE protocol Stat 02/21/19 20:21 MR MRCP Routine 02/22/19 10:30 FL ERCP biliary ductal Routine Hospital Course (1) Cholangitis: Presented with right upper quadrant pain, discomfort, with elevated transaminase level, sepsis Appreciate input from GI, status post ERCP, with sphincterotomy, placement of biliary ductal stent Surgery evaluation appreciated, s/p laparoscopic cholecystectomy 02/26/2019 Postop day 1 Developed gram-negative bacteremia secondary to cholangitis: Blood culture E. coli pansensitive Repeat blood culture no growth Was initially treated with IV Zosyn Appreciate input from ID Diet advanced to low-fat tolerating well Antibiotic changed to p.o. Augmentin, 5 more days of treatment Stable to be discharged home today (2) Gram-negative bacteremia: Secondary to acute cholecystitis/cholangitis With 5 more day of p.o. Augmentin (3) Sepsis: Resolved Secondary to acute cholecystitis/choledocholithiasis/cholangitis Developed gram-negative bacteremia: Pansensitive E. coli and blood culture Patient presenting with reports of abdominal pain, chest pain, shortness of breath Met criteria for sepsis on admission, hypothermic 35.4, WBC 13.9K, tachycardic, tachypnea, lactic acid 2.5; BP stable Lactic acid level normalized with IV fluids, vitals remained stable, leukocytosis has resolved Status post ERCP with sphincterotomy-appreciate input from GI Status post laparoscopic cholecystectomy blood culture shows gram-negative bacillii/pansensitive E. coli Initially treated with IV Zosyn, ID consulted, appreciate input: Patient will be discharged with 5 more day of p.o. Augmentin (4) Transaminitis: Due to cholecystitis/choledocholithiasis/cholangitis - -CT ABD/pelvis showing equivocal cholelithiasis -suspect source as Status post post ERCP: LFTs continues to improve, Antibiotic treatment with for acute cholangitis gram-negative bacteremia Surgery following, Status post laparoscopic cholecystectomy on 02/26/2019 LFTs improved to baseline, Able to be discharged home (5) Chest pain: Right sided chest pain possibly radiation from right gallbladder disease, resolved No evidence of ACS, (6) Acute electrocardiogram changes: Possible secondary to above: Cholangitis, acute cholecystitis/severe sepsis Resented with abdominal pain/right upper chest pain, GI in nature No evidence of ACS -CTA chest negative for PE -EKG shows new T wave inversions in leads II,III, aVF, V4 through V6 Possible stress-induced, -Serial troponin negative, echo shows no wall motion abnormality and, normal LV function (7) Hypophosphatemia: Corrected (8) Hypomagnesemia: -Replaced (9) Seizure disorder: -Stable, continue Dilantin (10) Gram negative sepsis: Secondary to acute cholecystitis/cholangitis, blood culture positive for p ansensitive E. coli, Resolved: Blood cultures no growth Will be discharged home with p.o. Augmentin (11) DVT prophylaxis: -SCDs CODE STATUS: Full code Disposition: Able to be discharged home today Family medicine follow-up with Dr. Acuna on 03/02/2019 Surgery follow-up with Dr. Pollack in 2 weeks Total Time Total Time Spent Total Time Spent (In Minutes): Approximate 45 minutes Total Time Includes: Examination of the Patient, Discharge Planning and Medication Reconciliation Discharge Plan Discharge Items Patient Disposition: Home - Home Health Services Reason For Visit: TRANSAMINITIS Discharge Diagnosis: Acute cholecystitis/E. coli gram-negative bacteremia/sepsis Discharge Goals: Decrease discomfort, Diagnostic testing and Therapeutic intervention Activity: Resume your previous activity Lifting: No more than 10 pounds Bathing: No limitations Driving/Machine Use: Resume 3 days after discharge Non-emergency contact: Primary Care Provider Call non-emergency contact if: you have any medication questions, your pain is not controlled, you have a fever, your temperature is above 101.5 and your wound has increased redness Follow-up/Referrals: Eduardo Pollack, VIKKI ROJO [Physician] - (Call to make an appt in approx 2 weeks) Tom Acuna MD [Primary Care Provider] - 03/02/19 10:45 am Diet: Low Fat Other Ambulatory Orders: Chemistry/Liver Profile (Routine) Timeframe: [id number] Location: Determined by Patient Ordered By: Brittney Hilliard Addtl Provider Instructions: SURGERY FOLLOW UP WITH DR POLLACK IN 2 WEEKS , PLEASE CALL TO SCHEDULE [facility] FOLLOW UP WITH DR ACUNA ON Tuesday03/02/19 @ 1045 AM Prescriptions: New omeprazole 20 mg capsule,delayed release(DR/EC) 20 mg PO DAILY 28 Days Qty: 28 RF: 0 oxycodone-acetaminophen [Percocet] 5-325 mg tablet 1 - 2 tab PO Q4H PRN (Reason: pain) Qty: 15 RF: 0 amoxicillin-pot clavulanate 875-125 mg Tablet 1 tab PO BIDM 5 Days Qty: 10 RF: 0 Continued phenytoin sodium extended 200 mg Capsule 400 mg PO BID RF: 0 Stand-Alone Forms: [employer], Work/School Release (Inpt) [employer]/Other Patient Handouts: Cooking Tips Low Fat, Diabetes Type 2 Coping, Diabetes Meal Planning, Diabetes Type 2 Discharge Orders: Discharge Order (Routine); Ordered 02/27/19 Ordered By: Brittney Hilliard Admission Data Admit Date/Time: 02/21/19 18:34 Attending Provider: Brittney Hilliard Admit Provider: Seun Mcgrath Primary Care Provider: Tom Acuna Other Providers: Stanford Ramirez ; Connor Jean ; Brad Ramirez David M. Service: Telemetry Medical Other Interventions: Discharge Summary Assessment (RN) Last Done: 02/27/19 12:38 DC Date/Time DO NOT enter until pt leaves facility: 02/27/19 14:22
[2019-02-27] MEDS ORDERED: AMOXICILLIN/CLAVULANATE 875 MG TAB PO SCH (17:00)
== END 2019-02-27 14:22 | disposition home health service (06) | DRG 854 ==
LOC: ED 14:23 → 2N 18:34